=== PATIENT | male | born 1945 | race Caucasian/White ===

== ENCOUNTER 2017-02-10 07:33 | Day surgery (SDC) | payer MEDICARE, OTHER ==
[~2017-02-10] VITALS: Ht 172.7 cm; Wt 79.4 kg
[~2017-02-10 07:33] MED LIST: ASP81TEC PO; ASPI-586 PO; CEPH500C PO; CLOP75TA28 PO; FISH1CAP15 PO; HYDR-3820 PO; HYDR-623 PO; LEVO750T24 PO; LISI10TA PO; LISI10TA2 PO; LOVA10TA PO; LOVA20TA2 PO; METO-270 PO; METO-351 PO; NITR0.4T SL; PRD10T PO; RT-COMBINH IH; SIMV5TAB6 PO; UBID100C44 PO
[2017-02-10] MEDS ORDERED: fentaNYL INJECTION 100 MCG/2 ML AMP IVP STA ×2 (07:50→08:46)
[2017-02-10] MEDS ORDERED: NS IV 1000 ML 1,000 ML IV STA (07:50)
--- NOTE | 2017-02-10 07:58 | ED Abdominal Pain ---
General Chief Complaint: Abdominal/GI Problems Stated Complaint: ABD PAIN Nursing Triage Note: AMBULATED TO ROOM 07 WITH COMPLAINTS OF ABD PAIN SINCE 0200 THAT NOW IS CENTERED IN HIS RIGHT LOWER ABD. Sepsis Screen: No Definite Risk Source of Information: Patient, Family Exam Limitations: No Limitations History of Present Illness Time Seen By Provider: 07:43 Initial Comments Here with report of lower abdominal pain that started as generalized lower or periumbilical and now has radiated and isolated more in the right lower quadrant. Started approximately 6 hours ago and has worsened. It is associated with mild nausea. Denies fevers. Worse with movement and on the car ride here. Denies blood in urine or stool. Timing/Duration: 4-6 Hours Severity/Quality: Moderate Location: RLQ Radiation: RLQ Activities at Onset: None Modifying Factors: Worsens With Movement Associated Symptoms: No Back Pain, No Chest Pain, No Fever/Chills, Nausea/ Vomiting, No Shortness of Air, No Weakness Allergies and Home Medications Allergies Coded Allergies: No Known Drug Allergies (Unverified , 12/22/11) Home Medications Aspirin 81 Mg Tablet.dr, 81 MG PO DAILY, (Reported) Clopidogrel Bisulfate 75 Mg Tablet, 75 MG PO DAILY, (Reported) Hydrocodone/Acetaminophen 1 Each Tablet, 1-2 TAB PO EVERY 4-6 HOURS PRN for PAIN , (Reported) Lisinopril 10 Mg Tablet, 10 MG PO DAILY, (Reported) Lovastatin 20 Mg Tablet, 20 MG PO HS, (Reported) Metoprolol Succinate 25 Mg Tab.er.24h, 25 MG PO DAILY, (Reported) Nitroglycerin 0.4 Mg Tab.subl, 0.4 MG SL UD PRN for CHEST PAIN, (Reported) Ubidecarenone 100 Mg Capsule, 100 MG PO DAILY, (Reported) Review of Systems Constitutional: see HPI EENTM: No Symptoms Reported Respiratory: No Symptoms Reported, Denies Shortness of Air, Denies Wheezing Cardiovascular: Denies Chest Pain, Denies Lightheadedness Gastrointestinal: Abdominal Pain, Nausea, Denies Rectal Bleeding, Denies Vomiting Genitourinary: Denies Hematuria, Denies Pain, Denies Urgency Musculoskeletal: no symptoms reported Skin: no symptoms reported All Other Systems Reviewed Negative Unless Noted: Yes Past Rdcyosl-Elihst-Qszbuc Hx Patient Social History Alcohol Use: Regular Use Recreational Drug Use: No Smoking Status: Former Smoker Type Used: Cigarettes Recent Foreign Travel: No Contact w/Someone Who Travel: No Recent Infectious Disease Expo: No Immunizations Up To Date Date of Pneumonia Vaccine: Jun 19, 2014 Date of Influenza Vaccine: Dec 24, 2011 Surgeries HX Surgeries: Yes (HERNIA) Surgeries: Abdominal, CABG Respiratory Hx Respiratory Disorders: No Cardiovascular Hx Cardiac Disorders: Yes Cardiac Disorders: High Cholesterol, Hypertension Neurological Hx Neurological Disorders: No Genitourinary Hx Genitourinary Disorders: No Gastrointestinal Hx Gastrointestinal Disorders: No Musculoskeletal Hx Musculoskeletal Disorders: No Musculoskeletal Disorders: Arthritis Endocrine Hx Endocrine Disorders: No HEENT HX ENT Disorders: No Psychosocial Hx Psychiatric Problems: No Blood Transfusions Hx Blood Disorders: No Reviewed Nursing Assessment Reviewed/Agree w Nursing PMH: Yes Family Medical History Significant Family History: Heart Disease Physical Exam Vital Signs VS - Last 72 Hours, by Label 02/10/17 07:41 Temp 97.8 Pulse 80 Resp 16 B/P (MAP) 217/103 Pulse Ox 96 Capillary Refill : Less Than 3 Seconds General Appearance: WD/WN, no apparent distress HEENT: PERRL/EOMI, pharynx normal Neck: full range of motion, supple Respiratory: lungs clear, normal breath sounds Cardiovascular: regular rate, rhythm, no murmur Peripheral Pulses: 2+ Dorsalis Pedis (R), 2+ Left Dors-Pedis (L), 2+ Radial Pulses (R), 2+ Radial Pulses (L) Gastrointestinal: soft, guarding, rebound, tenderness Extremities: non-tender, normal inspection Back: normal inspection, no CVA tenderness, no vertebral tenderness Neurologic/Psychiatric: alert, oriented x 3 Skin: normal color, warm/dry Progress/Results/Core Measures Results/Orders Lab Results Laboratory Tests Test 02/10/17 07:50 02/10/17 08:47 Range/Units White Blood Count 12.9 H 4.3-11.0 10^3/uL Red Blood Count 4.46 4.35-5.85 10^6/uL Hemoglobin 15.3 13.3-17.7 G/DL Hematocrit 45 40-54 % Mean Corpuscular Volume 101 H 80-99 FL Mean Corpuscular Hemoglobin 34 25-34 PG Mean Corpuscular Hemoglobin Concent 34 32-36 G/DL Red Cell Distribution Width 12.5 10.0-14.5 % Platelet Count 157 130-400 10^3/uL Mean Platelet Volume 9.0 7.4-10.4 FL Neutrophils (%) (Auto) 85 H 42-75 % Lymphocytes (%) (Auto) 9 L 12-44 % Monocytes (%) (Auto) 6 0-12 % Eosinophils (%) (Auto) 0 0-10 % Basophils (%) (Auto) 0 0-10 % Neutrophils # (Auto) 11.0 H 1.8-7.8 X 10^3 Lymphocytes # (Auto) 1.1 1.0-4.0 X 10^3 Monocytes # (Auto) 0.7 0.0-1.0 X 10^3 Eosinophils # (Auto) 0.0 0.0-0.3 10^3/uL Basophils # (Auto) 0.0 0.0-0.1 10^3/uL Sodium Level 137 135-145 MMOL/L Potassium Level 4.1 3.6-5.0 MMOL/L Chloride Level 104 98-107 MMOL/L Carbon Dioxide Level 22 21-32 MMOL/L Anion Gap 11 5-14 MMOL/L Blood Urea Nitrogen 15 7-18 MG/DL Creatinine 0.79 0.60-1.30 MG/DL Estimat Glomerular Filtration Rate > 60 BUN/Creatinine Ratio 19 Glucose Level 130 H 70-105 MG/DL Calcium Level 9.4 8.5-10.1 MG/DL Total Bilirubin 0.8 0.1-1.0 MG/DL Aspartate Amino Transf (AST/SGOT) 32 5-34 U/L Alanine Aminotransferase (ALT/SGPT) 26 0-55 U/L Alkaline Phosphatase 69 40-136 U/L Total Protein 7.2 6.4-8.2 G/DL Albumin 4.6 H 3.2-4.5 G/DL Urine Color YELLOW Urine Clarity CLEAR Urine pH 5 5-9 Urine Specific [place] 1.020 1.016-1.022 Urine Protein NEGATIVE NEGATIVE Urine Glucose (UA) NEGATIVE NEGATIVE Urine Ketones NEGATIVE NEGATIVE Urine Nitrite NEGATIVE NEGATIVE Urine Bilirubin NEGATIVE NEGATIVE Urine Urobilinogen NORMAL NORMAL MG/DL Urine Leukocyte Esterase NEGATIVE NEGATIVE Urine RBC (Auto) 2+ H NEGATIVE Urine RBC NONE /HPF Urine WBC NONE /HPF Urine Squamous Epithelial Cells NONE /HPF Urine Crystals NONE /LPF Urine Bacteria NEGATIVE /HPF Urine Casts NONE /LPF Urine Mucus NEGATIVE /LPF Urine Culture Indicated NO My Orders Orders - WARRNE CHAMPION MD Cbc With Automated Diff (02/10/17 07:50) Comprehensive Metabolic Panel (02/10/17 07:50) Ua Culture If Indicated (02/10/17 07:50) Fentanyl Injection (Sublimaze Injection (02/10/17 07:50) Ondansetron Injection (Zofran Injectio (02/10/17 08:00) Ns Iv 1000 Ml (Sodium Chloride 0.9%) (02/10/17 07:50) Saline Lock/Iv-Start (02/10/17 07:50) Ct Abd/Pelv W (Appendicitis) (02/10/17 08:39) Iohexol Injection (Omnipaque 350 Mg/Ml 1 (02/10/17 08:45) Sodium Chloride Flush (Catheter Flush Sy (02/10/17 08:45) Ns (Ivpb) (Sodium Chloride 0.9% Ivpb Bag (02/10/17 08:45) Fentanyl Injection (Sublimaze Injection (02/10/17 08:46) Hydromorphone Injection (Dilaudid Inject (02/10/17 09:44) Piperacillin Sodium/Tazobactam (Zosyn Vi (02/10/17 10:00) Medications Given in ED Current Medications Medications Dose Ordered Sig/Yolanda Route Start Time Stop Time Status Last Admin Dose Admin Iohexol 100 ml ONCE ONCE IV 02/10/17 08:45 02/10/17 08:46 DC 02/10/17 08:56 100 ML Ondansetron HCl 4 mg ONCE ONCE IVP 02/10/17 08:00 02/10/17 08:01 DC 02/10/17 07:59 4 MG Sodium Chloride 100 ml ONCE ONCE IV 02/10/17 08:45 02/10/17 08:46 DC 02/10/17 08:56 80 ML Vital Signs/I&O Vital Sign - Last 12Hours 02/10/17 07:41 Temp 97.8 Pulse 80 Resp 16 B/P (MAP) 217/103 Pulse Ox 96 Blood Pressure Mean: 141 Progress Note : Progress Note Seen and evaluated. IV, labs, UA, normal saline 1 L bolus, fentanyl 100 g IV and Zofran 4 mg IV ordered. Anticipate CT scan. This was ordered and done. 0945: Acute appendicitis noted. Case discussed with Dr. Canales. He will admit the patient and taken to the OR probably later today. Zosyn 4.5 g IV. Patient did receive a repeat dose of fentanyl earlier 75 g. Pain has returned. Dilaudid 1 mg IV ordered. Patient agrees to admission and surgical procedure. Admit, observation status. Diagnostic Imaging Diagonstic Imaging: CT Plain Films/CT/US/NM/MRI: abdomen, pelvis Comments VIA [facility] [place] [facility], [place] NAME: [facility]AKUR [facility] REC#: [id number] PT STATUS: REG ER : 1945 PHYSICIAN: WARREN CHAMPION MD ADMIT DATE: 02/10/17/ER Draft Date of Exam:02/10/17 CT ABD/PELV W (APPENDICITIS) PROCEDURE: CT abdomen and pelvis with contrast, rule out appendicitis. TECHNIQUE: Multiple contiguous axial images were obtained through the abdomen and pelvis after the administration of intravenous contrast. INDICATION: Right lower quadrant pain. 100 mL of Omnipaque 350 is administered intravenously. FINDINGS: Minimal atelectasis is seen in the lung bases. The appendix is dilated with fluid filling its lumen and multiple appendicoliths seen. Surrounding inflammatory changes are noted. There is no localized or free perforation evident. There is no abscess seen. There is small amount of fluid density noted in the right inguinal canal. This could relate to a cyst or small amount of fluid trapped in a small indirect right inguinal hernia. This does not appears to be in communication with the appendix. The liver, the gallbladder, the spleen, the adrenals, and the pancreas appear unremarkable. The kidneys have symmetric enhancement and contrast excretion. There is no hydronephrosis. The abdominal aorta is normal in caliber. No para-aortic significantly enlarged lymph nodes seen. No bowel obstruction. The prostate is heterogenous with mild enlargement at 5 cm in transverse dimension. The urinary bladder demonstrate mild wall thickening could be secondary to chronic obstructive changes. The osseous structures demonstrate degenerative changes in the lower lumbar spine. IMPRESSION: 1. Acute appendicitis. No evidence of perforation or abscess. 2. Small amount of fluid density at the proximal aspect of the right inguinal canal near the internal ring may relate to a cystic lesion within the inguinal canal or trapped small amount of fluid and a small indirect right inguinal hernia. Dictated on workstation # [id number] Dict: 02/10/1730 Trans: 02/10/17 0949 [facility] [id number] Interpreted by: RENY GAONA MD Electronically signed by: Reviewed: Reviewed by Me, Discussed w/Radiologist Departure Communication Time/Spoke to Admitting Phy: 09:45 Impression Impression: Primary Impression: Appendicitis Qualified Codes: K35.3 - Acute appendicitis with localized peritonitis Disposition: ADMITTED INPATIENT Condition: Stable Decision to Admit Reason: Admit from ER (General) Decision to Admit/Date: Feb 10, 2017 Time/Decision to Admit Time: 09:45 Departure-Patient Inst. Referrals: RENETTA WHITE MD (PCP/Family) Primary Care Physician WARREN CHAMPION MD Feb 10, 2017 07:58
[2017-02-10 08:00] LABS: BASOPHILS % (AUTO) 0 % (0-10); EOSINOPHILS % (AUTO) 0 % (0-10); LYMPHOCYTES # (AUTO) 1.1 X 10^3 (1.0-4.0); LYMPHOCYTES % (AUTO) 9 % (12-44); MEAN CORPUSCULAR HEMOGLOBIN 34 PG (25-34); MEAN CORPUSCULAR HGB CONC 34 G/DL (32-36); MEAN CORPUSCULAR VOLUME 101 FL (80-99); MONOCYTES # (AUTO) 0.7 X 10^3 (0.0-1.0); MONOCYTES % (AUTO) 6 % (0-12); NEUTROPHILS % (AUTO) 85 % (42-75); PLATELET COUNT 157 10^3/uL (130-400); RED BLOOD COUNT 4.46 10^6/uL (4.35-5.85); RED CELL DISTRIBUTION WIDTH 12.5 % (10.0-14.5); WHITE BLOOD COUNT 12.9 10^3/uL (4.3-11.0)
[2017-02-10] MEDS ORDERED: ONDANSETRON 4 MG/2 ML (SDV) Z0FRAN IVP ONE (08:00)
[2017-02-10 08:20] LABS: ALANINE AMINOTRANSFERASE 26 U/L (0-55); ALBUMIN 4.6 G/DL (3.2-4.5); ANION GAP 11 MMOL/L (5-14); ASPARTATE AMINO TRANSFERASE 32 U/L (5-34); BILIRUBIN,TOTAL 0.8 MG/DL (0.1-1.0); BLOOD UREA NITROGEN 15 MG/DL (7-18); BUN/CREATININE RATIO 19; CALCIUM 9.4 MG/DL (8.5-10.1); CARBON DIOXIDE 22 MMOL/L (21-32); CHLORIDE 104 MMOL/L (98-107); CREATININE SERUM 0.79 MG/DL (0.60-1.30); GFR ESTIMATED > 60; GLUCOSE 130 MG/DL (70-105); POTASSIUM 4.1 MMOL/L (3.6-5.0); SODIUM 137 MMOL/L (135-145); TOTAL PROTEIN 7.2 G/DL (6.4-8.2)
[2017-02-10] MEDS ORDERED: CATHETER FLUSH 10 ML SYR IV PRN (08:45)
[2017-02-10] MEDS ORDERED: NS 100 ML (IVPB) BAG IV ONE (08:45)
[2017-02-10] MEDS ORDERED: IOHEXOL 350 MG/ML 100 ML (OMNIPAQUE 350) VIAL IV ONE (08:45)
[2017-02-10 08:52] LABS: BILIRUBIN,URINE NEGATIVE (NEGATIVE); KETONES,URINE NEGATIVE (NEGATIVE); LEUKOCYTE ESTERASE ,URINE NEGATIVE (NEGATIVE); NITRITE,URINE NEGATIVE (NEGATIVE); PH,URINE 5 (5-9); PROTEIN,URINE NEGATIVE (NEGATIVE); UROBILINOGEN,URINE NORMAL (NORMAL)
[2017-02-10] MEDS ORDERED: HYDROmorphone (DILAUDID) 2 MG/ML VIAL IVP STA (09:44)
--- NOTE | 2017-02-10 09:50 | Diagnostic Imaging Report ---
PROCEDURE: CT abdomen and pelvis with contrast, rule out appendicitis. TECHNIQUE: Multiple contiguous axial images were obtained through the abdomen and pelvis after the administration of intravenous contrast. INDICATION: Right lower quadrant pain. 100 mL of Omnipaque 350 is administered intravenously. FINDINGS: Minimal atelectasis is seen in the lung bases. The appendix is dilated with fluid filling its lumen and multiple appendicoliths seen. Surrounding inflammatory changes are noted. There is no localized or free perforation evident. There is no abscess seen. There is small amount of fluid density noted in the right inguinal canal. This could relate to a cyst or small amount of fluid trapped in a small indirect right inguinal hernia. This does not appears to be in communication with the appendix. The liver, the gallbladder, the spleen, the adrenals, and the pancreas appear unremarkable. The kidneys have symmetric enhancement and contrast excretion. There is no hydronephrosis. The abdominal aorta is normal in caliber. No para-aortic significantly enlarged lymph nodes seen. No bowel obstruction. The prostate is heterogenous with mild enlargement at 5 cm in transverse dimension. The urinary bladder demonstrate mild wall thickening could be secondary to chronic obstructive changes. The osseous structures demonstrate degenerative changes in the lower lumbar spine. IMPRESSION: 1. Acute appendicitis. No evidence of perforation or abscess. 2. Small amount of fluid density at the proximal aspect of the right inguinal canal near the internal ring may relate to a cystic lesion within the inguinal canal or trapped small amount of fluid and a small indirect right inguinal hernia. Findings were discussed with Dr. Amador at time of dictation Dictated by: Dictated on workstation # [id number]
[2017-02-10] MEDS ORDERED: PIPERACILLIN/TAZO 4.5 GM VIAL (ZOSYN) IV ONE (10:00)
[2017-02-10 10:40] VITALS: BP 145/73
[2017-02-10] MEDS ORDERED: ONDANSETRON 4 MG/2 ML (SDV) Z0FRAN IV PRN (11:00)
[2017-02-10] MEDS ORDERED: NS IV 1000 ML 1,000 ML IV SCH (11:00)
[2017-02-10] MEDS ORDERED: HYDROmorphone (DILAUDID) 2 MG/ML VIAL IV PRN ×2 (11:00→13:00)
[2017-02-10] MEDS ORDERED: PIPERACILLIN/TAZOBACTAM 4.5 GM/NS 100 ML IV SCH ×4 (11:00→16:00)
[2017-02-10] MEDS ORDERED: DESO15CR28 TP (11:09)
[2017-02-10] MEDS ORDERED: ATOR40TA70 PO (11:09)
[2017-02-10] MEDS ORDERED: PANTOPRAZOLE 40 MG/10 ML (PROTONIX) VIAL IV SCH (11:51)
[2017-02-10] MEDS ORDERED: oxyCODONE/APAP 7.5-325 MG (PERCOCET 7.5) TABLET PO PRN (12:00)
[2017-02-10] MEDS ORDERED: LORazepam INJ 2 MG/ML (ATIVAN) VIAL IVP PRN (12:00)
[2017-02-10] MEDS ORDERED: BUPIVACAINE 0.5% 30 ML (SENSORCAINE) VIAL ONE (12:05)
[2017-02-10] MEDS ORDERED: ONDANSETRON 4 MG/2 ML (SDV) Z0FRAN ONE (12:14)
[2017-02-10] MEDS ORDERED: ROCURONIUM 50 MG/5 ML (ZEMURON) VIAL IV ONE (12:14)
[2017-02-10] MEDS ORDERED: LACTATED RINGERS 1,000 ML IV PRN (12:14)
[2017-02-10] MEDS ORDERED: LACTATED RINGERS 1,000 ML IV ONE ×2 (12:14→13:37)
[2017-02-10] MEDS ORDERED: DEXAMETHASONE PF 10 MG/ML (DECADRON) VIAL ONE (12:14)
[2017-02-10] MEDS ORDERED: MIDAZOLAM 2 MG/2 ML (VERSED) VIAL ONE (12:14)
[2017-02-10] MEDS ORDERED: proPOfol 200 MG/20 ML (DIPRIVAN) VIAL IV ONE (12:14)
[2017-02-10] MEDS ORDERED: LIDOCAINE PF 2% 10 ML (XYLOCAINE) AMP ONE (12:14)
[2017-02-10] MEDS ORDERED: fentaNYL INJECTION 100 MCG/2 ML AMP ONE ×2 (12:15→13:19)
--- NOTE | 2017-02-10 12:50 | Progress Note-Pre Operative ---
Pre-Operative Progress Note H&P Reviewed The H&P was reviewed, patient examined and no changes noted. Date H&P Reviewed: Feb 10, 2017 Time H&P Reviewed: 11:00 Pre-Operative Diagnosis: acute appendicitis CHAKA RUTH MD Feb 10, 2017 12:50 pm
[2017-02-10] MEDS ORDERED: ceFAZolin 1,000 MG (ANCEF) VIAL ONE (13:04)
[2017-02-10] MEDS ORDERED: meTOprolol 5 MG/5 ML (LOPRESSOR) VIAL ONE (13:04)
--- NOTE | 2017-02-10 13:18 | HISTORY AND PHYSICAL ---
DATE OF SERVICE: 02/10/2017 PRIMARY CARE PHYSICIAN: Ramila Esposito MD The patient is a 71-year-old male who reports approximately 2 a.m. this morning he had developed pain in the right lower abdominal quadrant. He reports that this progressed over time and this also is associated with some mild nausea, however, no vomiting. He does not report any fever nor chills. Upon presentation to the emergency department, he had pain in the right lower abdominal quadrant at McBurney's point. A CT scan was also performed which did show inflammation of the appendix consistent with acute appendicitis. Upon examination, he does have pain with voluntary guarding. No rebound. PAST MEDICAL HISTORY: 1. Hypertension. 2. Hypercholesterolemia. 3. Coronary artery disease. 4. Degenerative joint disease. PAST SURGICAL HISTORY: 1. Bilateral open inguinal hernia repair. 2. Coronary artery bypass grafting times 3 vessels 08/2016. ALLERGIES: NO KNOWN DRUG ALLERGIES. MEDICATIONS: 1. Aspirin 81 mg daily. 2. Plavix 75 mg daily. 3. Lisinopril 10 mg daily. 4. Lovastatin 20 mg daily. 5. Metoprolol 25 mg daily. 6. Nitroglycerin p.r.n. 7. Ubidicarenone 100 mg daily. 8. Hydrocodone p.r.n. SOCIAL HISTORY: Negative smoke. Positive alcohol. VITAL SIGNS: Temperature 97.8, blood pressure 140/100, pulse 70, respirations 16, pulse oximetry 98% on room air. REVIEW OF SYSTEMS: Well nourished male currently guarded secondary to the abdominal pain. He is not experiencing shortness of breath or difficulty breathing. No chest pain, palpitations, diaphoresis. Intermittent episodes of nausea, no vomiting. No diarrhea, constipation, no red blood per rectum, no dark tarry stools. No fevers or chills. No recent inadvertent weight loss. PHYSICAL EXAMINATION: CHEST: Clear. HEART: Regular. EXTREMITIES: No lower extremity edema. Negative Homans' sign. HEENT: No scleral icterus. No cervical lymphadenopathy. ABDOMEN: Soft and nondistended. There is pain in the right lower abdominal quadrant at McBurney's point with voluntary guarding. No rebound. LABS: WBC 12.9, hemoglobin 15.3, hematocrit 45, platelets 157,000. Total bilirubin 0.8, AST 32, ALT 26, alkaline phosphatase 69. ASSESSMENT AND PLAN: A 71-year-old male with acute appendicitis. He has been n.p.o. We will proceed with diagnostic laparoscopy as well as laparoscopic appendectomy. Job ID: [id number] DocumentID: [id number] Dictated Date: 02/10/2017 11:53:25 Dental Claims Processor Date: 02/10/2017 13:17:42 Dictated By: CHAKA RUTH MD
[2017-02-10] MEDS ORDERED: ceFAZolin INJECTION 1,000 MG in NS (IVPB) 50 ML IV ONE (13:30)
[2017-02-10] MEDS ORDERED: SEVOFLURANE (ULTANE) 15 ML INHAL SOLN ONE (13:37)
[2017-02-10] MEDS ORDERED: GLYCOPYRROLATE 0.2 MG/ML (ROBINUL) 2 ML VIAL ONE (13:38)
[2017-02-10] MEDS ORDERED: NEOSTIGMINE (BLOXIVERZ ) 1 MG/1ML 10 ML VIAL ONE (13:38)
--- NOTE | 2017-02-10 13:50 | Progress Note-Post Operative ---
Post-Operative Progess Note Surgeon (s)/Caterers Helper (s) Surgeon CHAKA RUTH MD Caterers Helper: calin ji LOAN PROCESSING SUPERVISOR Pre-Operative Diagnosis acute appendicitis Post-Operative Diagnosis same Post-Op Procedure Note Date of Procedure: Feb 10, 2017 Name of Procedure Performed: laparoscopic appendectomy Description of the Procedure: laparoscopic appendectomy Findings of the Procedure . Anesthesia Type GET Estimated blood loss (mL): minimal Specimen(s) collected/removed appendix CHAKA RUTH MD Feb 10, 2017 1:49 pm
[2017-02-10] MEDS ORDERED: OXYC-201 PO (13:54)
[2017-02-10] MEDS ORDERED: AMOX-358 PO (13:54)
--- NOTE | 2017-02-10 13:56 | Discharge Inst-Surgical ---
D/C Lap Instructions-FARAZ New, Converted, or Re-Newed RX: RX on Chart Follow Up Appt in 2 weeks Activity as tolerated No driving for 24 hours No driving while on pain medications Incentive Spirometry use every 2 hours while awake Regular Diet Symptoms to Report: Fever over 101 degree F, Nausea/Vomiting Infection Signs and Symptoms to report: Increased redness, Foul odor of wound, Increased drainage Bathing instructions: May shower Operative Area Clean/Dry; Keep incision clean/dry If any problems/questions: Contact your physician or go to Emergency Room CHAKA RUTH MD Feb 10, 2017 1:56 pm
[2017-02-10] MEDS ORDERED: ONDANSETRON 4 MG/2 ML (SDV) Z0FRAN IVP PRN (14:15)
[2017-02-10] MEDS ORDERED: fentaNYL INJECTION 100 MCG/2 ML AMP IVP PRN (14:15)
[2017-02-10] MEDS ORDERED: morphine INJ 10 MG/ML 1ML (SYR OR VIAL) IVP PRN (14:15)
[2017-02-10 16:45] VITALS: BP 143/80
[2017-02-10 18:25] VITALS: BP 145/78
--- NOTE | 2017-02-11 06:18 | OPERATIVE REPORT ---
DATE OF SERVICE: 02/10/2017 PRIMARY CARE PHYSICIAN: Ramila Esposito MD PREOPERATIVE DIAGNOSIS: Acute appendicitis. POSTOPERATIVE DIAGNOSIS: Acute appendicitis. PROCEDURE: Laparoscopic appendectomy. SURGEON: Chaka Ruth MD FUNDRAISING DIRECTOR: Aakash Shepard APRN ANESTHESIA: General endotracheal. ESTIMATED BLOOD LOSS: 100 mL. FINDINGS: Acutely inflamed appendix with some necrotic changes, however there is no free perforation identified and walled off by small bowel and omentum. DISPOSITION: The patient tolerated the procedure well. The patient is a 71-year-old male who reports that at approximately 2 a.m. this morning, he had developed pain in the right lower abdominal quadrant. The pain persisted and progressed over time and was associated with mild nausea, however, no vomiting. He did not report any fever nor chills at home. His findings on presentation in the Emergency Department the pain was worse in the right lower abdominal quadrant and at McBurney's point. A CT scan was performed which showed inflammation of the appendix consistent with an acute appendicitis as well as multiple appendicoliths. Upon examination, he did have pain at McBurney's point with voluntary guarding, no rebound, consistent with an acute appendicitis. The patient was brought to the operating room, laid supine on the table. After adequate IV pain and sedating medications and general endotracheal intubation, the abdomen was prepped and draped in the standard surgical fashion. Marcaine with epinephrine 0.5% was then used to anesthetize the overlying skin in the left upper abdominal quadrant. A small transverse skin incision made using a 15 blade. An 0 silk suture was applied to the medial aspect of the incision for retraction, a Veress needle inserted with an opening pressure of 0 mmHg. The abdomen was then insufflated to 15 mmHg pressure. The Veress needle removed and a 5 mm [place] trocar placed followed by a 5 mm port 5 degree angle laparoscope visualizing the peritoneal cavity. A 4 quadrant abdominal exam was performed. The appendix was visualized and there were significant inflammatory changes as well as early necrotic changes as well. There was no free perforation. There was adherent small bowel as well as omentum and mesentery. There was no free fluid or bijal purulence. Under direct visualization, we then proceeded to place a supraumbilical 10 mm port after the skin and peritoneum were anesthetized using 0.5% Marcaine with epinephrine and a transverse skin incision made using a 15 blade. In a similar manner, a suprapubic 5 mm port was placed. The patient was then placed in Trendelenburg position as well as planed right side up left side down. The adhered small bowel and omentum and mesentery were then bluntly dissected. The appendix was then retracted towards the anterior abdominal wall. A window was then created between the mesoappendix and the base of the appendix using a [place] dissector. The appendix was then stapled and transected at its cecal base using a ALICIA 45 mm stapler with a 2.5 mm thickness load. The mesoappendix was then transected with the same stapler with a 2.0 mm thickness, reload x2 with visualization of good hemostasis. The area was then copiously irrigated out as was the pelvis and suctioned out. Good hemostasis was also observed. The 10 mm port fascia and peritoneum were then closed under direct visualization using the Gianni-Yeimy device and an 0-Vicryl suture. The abdomen was desufflated and the remaining ports removed. All skin incisions closed using 4-0 Monocryl running subcuticular sutures. The wounds were then cleaned and covered with Dermabond. The patient tolerated the procedure well. We will admit him back to the floor and continue with IV antibiotics. Once he is tolerating clears and has good pain control with oral medication and is ambulating well, we will discharge him home. Job ID: [id number] DocumentID: [id number] Dictated Date: 02/10/2017 14:03:18 Senior Maintenance Machinist Date: 02/11/2017 06:17:30 Dictated By: CHAKA RUTH MD [facility]
--- NOTE | 2017-02-11 14:07 | Anesthesia-General Post-Op ---
General Patient Condition Mental Status/LOC: Same as Preop Cardiovascular: Satisfactory Nausea/Vomiting: Absent Respiratory: Satisfactory Pain: Controlled Complications: Absent Post Op Complications Complications None Follow Up Care/Instructions Patient Instructions None needed. Anesthesia/Patient Condition Patient Condition Patient is doing well, no complaints, stable vital signs, no apparent adverse anesthesia problems. No complications reported per nursing. [place] [facility] [place] Yes JAYSON ALBERT CRNA Feb 11, 2017 14:07
== END 2017-02-10 18:35 | disposition home or self-care (01) ==
LOC: EDUNIT# 07:33 → ER 07:35 → 4TH 09:45 → SDC 09:45 → UNDOADMOB 09:45 → SDC 18:35 → UNDODISOB 18:35
PROVIDERS: ATTEND Surgery Pediatric Surgery
DX: K35.80 Unspecified acute appendicitis (principal); I10 Essential (primary) hypertension; E78.00 Pure hypercholesterolemia, unspecified; I25.10 Atherosclerotic heart disease of native coronary artery without angina pectoris; Z79.899 Other long term (current) drug therapy
CPT/HCPCS: 36415; 74177; 80053; 81000; 85025; 87081; 88304; 96361; 96374; 96375; 96376

== ENCOUNTER 2018-01-16 02:23 | Emergency (ER) | payer MEDICARE ==
[~2018-01-16] VITALS: Ht 172.7 cm; Wt 80.3 kg
[~2018-01-16 02:23] MED LIST changes: +AMOX-358 PO; +ATOR40TA70 PO; +DESO15CR28 TP; -METO-270 PO; +METO-387 PO; +OXYC-201 PO
--- NOTE | 2018-01-16 02:54 | ED Respiratory ---
General Stated Complaint: POSS PNEUMONIA Source: patient Exam Limitations: no limitations History of Present Illness Date Seen by Provider: Jan 16, 2018 Time Seen by Provider: 02:40 Initial Comments Here with report of cough and feeling short of breath and concerned that he might have pneumonia. Had chills last night but no documented fever. Denies nausea or vomiting. Quit smoking a year and a half ago and his heart surgery. Reports taking his meds as directed. Timing/Duration: getting worse, other (several days) Severity: moderate Prior Episodes/Possible Cause: occasional episodes Modifying Factors: Worse With Activity Associated Symptoms: No chest pain/soreness, cough, fever/chills, No nasal congestion, No nasal drainage, shortness of breath, No sore throat, No wheezing Allergies and Home Medications Allergies Coded Allergies: No Known Drug Allergies (Unverified , 02/10/17) Home Medications Aspirin 81 Mg Tablet.dr, 81 MG PO DAILY, (Reported) Atorvastatin Calcium 40 Mg Tablet, 40 MG PO HS, (Reported) Metoprolol Succinate 25 Mg Tab.er.24h, 25 MG PO DAILY, (Reported) Oxycodone HCl/Acetaminophen 1 Each Tablet, 1-2 EACH PO Q4H Prescribed by: CHAKA RUTH on 02/10/17 7334 Patient Home Medication List Home Medication List Reviewed: Yes Constitutional: see HPI, chills, No fever EENTM: no symptoms reported, No nose congestion, No nose pain Respiratory: cough, short of breath, No wheezing Cardiovascular: no symptoms reported Gastrointestinal: No abdominal pain, No nausea, No vomiting Genitourinary: no symptoms reported All Other Systems Reviewed Negative Unless Noted: Yes Past Xnkqqax-Daswbk-Fhzfjt Hx Patient Social History Alcohol Use: Occasionally Uses Alcohol Beverage of Choice: Vodka Recreational Drug Use: No Type Used: Cigarettes Recent Foreign Travel: No Contact w/Someone Who Travel: No Recent Hopitalizations: No Immunizations Up To Date Date of Pneumonia Vaccine: Jun 19, 2014 Date of Influenza Vaccine: Dec 24, 2011 Seasonal Allergies Seasonal Allergies: No Surgeries History of Surgeries: Yes Surgeries: Abdominal, CABG, Orthopedic Respiratory History of Respiratory Disorde: No Cardiovascular History of Cardiac Disorders: Yes Cardiac Disorders: High Cholesterol, Hypertension Neurological History of Neurological Disord: No Genitourinary History of Genitourinary Disor: No Gastrointestinal History of Gastrointestinal Di: Yes Gastrointestinal Disorders: Abdominal Hernia Musculoskeletal History of Musculoskeletal Dis: No Musculoskeletal Disorders: Arthritis Endocrine History of Endocrine Disorders: No HEENT History of HEENT Disorders: No Cancer History of Cancer: No Psychosocial History of Psychiatric Problem: No Integumentary History of Skin or Integumenta: No Blood Transfusions History of Blood Disorders: No Reviewed Nursing Assessment Reviewed/Agree w Nursing PMH: Yes Family Medical History Significant Family History: Heart Disease Family Medial History: Physical Exam Vital Signs Vital Signs - First Documented 01/16/18 01/16/18 02:38 02:56 Temp 99.2 Pulse 97 Resp 20 B/P (MAP) 166/98 (120) Pulse Ox 94 O2 Delivery Room Air Capillary Refill : General Appearance: WD/WN, no apparent distress HEENT: PERRL/EOMI, pharynx normal Neck: full range of motion, supple Respiratory: lungs clear, normal breath sounds Cardiovascular: regular rate, rhythm, no murmur Gastrointestinal: non tender, soft Extremities: non-tender, normal inspection Neurologic/Psychiatric: alert, oriented x 3 Skin: normal color, warm/dry Progress/Results/Core Measures Suspected Sepsis SIRS Temperature: Pulse: Respiratory Rate: Blood Pressure / Mean: Results/Orders My Orders Orders - WARREN CHAMPION MD Chest Pa/Lat (2 View) (01/16/18 02:48) Albuterol/Ipra Inhalation Soln (Duoneb I (01/16/18 03:00) Svn Sm Volume Nebulizer Rt-Rfs (01/16/18 02:48) Medications Given in ED Current Medications Medications Dose Ordered Sig/Yolanda Route Start Time Stop Time Status Last Admin Dose Admin Albuterol/ Ipratropium 3 ml ONCE ONCE INH 01/16/18 03:00 01/16/18 03:01 DC 01/16/18 02:54 3 ML Vital Signs/I&O Vital Sign - Last 12Hours 01/16/18 01/16/18 02:38 02:56 Temp 99.2 Pulse 97 Resp 20 B/P (MAP) 166/98 (120) Pulse Ox 94 O2 Delivery Room Air Room Air Capillary Refill : Progress Note : Progress Note Seen and evaluated. Chest x-ray and urine ordered.duoneb ordered. Monitor patient. 0325: States improved after breathing treatment. Chest x-ray shows questionable infiltrate. We will treat with antibiotics but also had prednisone due to his long history of smoking. Discharged home with return precautions. Patient verbalized understanding instructions and agreement with plan. Diagnostic Imaging Diagonstic Imaging: Xray Plain Films/CT/US/NM/MRI: chest Comments Questionable infiltrate/thickening bilateral bases. Departure Impression Impression: Primary Impression: Left lower lobe pneumonia Qualified Codes: J18.1 - Lobar pneumonia, unspecified organism Disposition: HOME, SELF-CARE Condition: Stable Departure-Patient Inst. Decision time for Depature: 03:27 Referrals: RENETTA WHITE MD (PCP/Family) Primary Care Physician Patient Instructions: Pneumonia, Adult (DC) Add. Discharge Instructions: Take medications as directed. You should take the prednisone in the morning. Start the antibiotic, Cefdinir, tonight. You may use Afrin nasal spray or the generic, 12 hour relief, 2 sprays to each nostril twice daily for 3 days only and then stop. Do not use more than 3 days. Follow-up with your Dr. in a few days for recheck. Return for worse pain, fever, vomiting, weakness, breathing problems or other concerns as needed. Scripts Prednisone (Prednisone) 20 Mg Tab 40 MG PO DAILY, #8 TAB 0 Refills Prov: WARREN CHAMPION MD 01/16/18 Cefdinir (Cefdinir) 300 Mg Capsule 300 MG PO BID, #14 CAP 0 Refills Prov: WARREN CHAMPION MD 01/16/18 WARREN CHAMPION MD Jan 16, 2018 02:54
[2018-01-16] MEDS ORDERED: RT-ALBUTEROL/IPRATROPIUM 3 ML (DUONEB) VIAL INH ONE (03:00)
[2018-01-16] MEDS ORDERED: PRD20T PO (03:29)
[2018-01-16] MEDS ORDERED: CEFD300C3 PO (03:29)
[2018-01-16] MEDS ORDERED: CEFDINIR 300 MG (OMNICEF) CAP PO ONE (03:30)
[2018-01-16] MEDS ORDERED: RX-ALBUTEROL INHALER (PROAIR) 8 GM IH PRN (03:30)
[2018-01-16] MEDS ORDERED: predniSONE 20 MG TAB PO ONE (03:30)
[2018-01-16 03:49] VITALS: BP 166/98
--- NOTE | 2018-01-16 07:24 | Diagnostic Imaging Report ---
Clinical indication: Patient with cough and congestion. Exam: Chest x-ray, PA and lateral views. Comparison: Portable chest x-ray dated 06/16/2016. Findings: There is interval slight increased opacities in both lung bases which may represent atelectasis versus infiltrate. Otherwise, the remainder of the lungs are clear. There is no pleural effusion or pneumothorax. Pulmonary vasculature and cardiac silhouette are within normal limits. There is interval postop change to the chest with sternotomy wires and mediastinal clips which would be seen with CABG. Impression: 1: Interval mild bibasilar atelectasis versus infiltrates. 2: Interval postop changes to the chest consistent with CABG. Dictated by: Dictated on workstation # [id number]
--- OUTSIDE RECORDS SUMMARY | 2018-01-16 08:35 | XMS REPORT | CCD ---
Author Author Lida Sanchez Organization [facility] Address [address] [place] [address] Phone Care Team Providers Care Batch Dumper Name Role Phone PP Unavailable CCM Unavailable Summary Purpose Interface Exchange Insurance Providers Payer name Policy type / Coverage type Covered democrat ID Effective Begin Date Effective End Date WPS Medicare Part B [id number] 2015 Unknown [facility] [id number] Unknown Family history Father Diagnosis Age At Onset Heart Attack Unknown Mother Diagnosis Age At Onset Stroke Unknown Social History Social History Element Codes Description Effective Dates Tobacco history SNOMED CT: 0500957 Former smoker 09/29/2016 Marital status Unknown [employer] 06/02/2016 Number of children Unknown 0 06/02/2016 Number of cigarettes/day Unknown 10 ( Half a pack) 06/02/2016 Frequency of drinks SNOMED CT: 954705936 1-4 drinks per week 03/07/2015 Living arrangements Unknown House 03/06/2015 Employment Unknown Retired 03/06/2015 Number of years using tobacco Unknown 40 - 50 03/06/2015 Allergies, Adverse Reactions, Alerts Allergies, Adverse Reactions, Alerts data not found Past Medical History Illness Codes Condition Status Onset Date Resolved Date Effusion, right wrist ICD-9: 719.03 ICD-10: M25.431 Active 12/02/2017 Unknown Essential (primary) hypertension ICD-9: 401.9 ICD-10: I10 Active 06/03/2015 Unknown Mixed hyperlipidemia ICD-9: 272.4 ICD-10: E78.2 Active 06/03/2015 Unknown Other chronic pain ICD -9: 338.29 ICD-10: G89.29 Active 06/03/2015 Unknown Pain in right wrist ICD-9: 719.43 ICD-10: M25.531 Active 09/29/2016 Unknown Pain in left thigh ICD -9: 729.5 ICD-10: M79.652 Active 09/23/2017 Unknown Pain in right shoulder ICD-9: 719.41 ICD-10: M25.511 Active 03/30/2017 Unknown Pain in right arm ICD- 9: 729.5 ICD-10: M79.601 Active 03/01/2017 Unknown Other insomnia ICD-9: 327.09 ICD-10: G47.09 Active 12/23/2016 Unknown Pain in left wrist ICD -9: 719.43 ICD-10: M25.532 Active 09/29/2016 Unknown Pain in right knee ICD -9: 719.46 ICD-10: M25.561 Active 03/05/2015 Unknown Encounter for immunization ICD-9: V03.9 ICD-10: Z23 Active 12/02/2015 Unknown Tobacco use ICD-9: 305.1 ICD-10: Z72.0 Active 06/03/2015 Unknown Encounter for immunization ICD-9: V04.81 ICD-10: Z23 Active 08/29/2015 Unknown Chronic pain ICD-9: 338.29 Active 06/03/2015 Unknown ESSENTIAL HYPERTENSION ICD-9: 401.9 Active 06/03/2015 Unknown HYPERLIPIDEMIA ICD-9: 272.4 Active 06/03/2015 Unknown TOBACCO USE DISORDER ICD-9: 305.1 Active 06/03/2015 Unknown Hyperlipidemia Unknown Active 03/07/2015 Unknown Hypertension Unknown Active 03/07/2015 Unknown Osteoarthritis Unknown Active 03/07/2015 Unknown Right knee pain ICD-9 : 719.46 Active 03/05/2015 Unknown Problems Condition Codes Effective Dates Condition Status Effusion, right wrist ICD-9: 719.03 ICD-10: M25.431 12/02/2017 Active Essential (primary) hypertension ICD-9: 401.9 ICD-10: I10 06/03/2015 Active Mixed hyperlipidemia ICD-9: 272.4 ICD-10: E78.2 06/03/2015 Active Other chronic pain ICD -9: 338.29 ICD-10: G89.29 06/03/2015 Active Pain in right wrist ICD-9: 719.43 ICD-10: M25.531 09/29/2016 Active Pain in left thigh ICD -9: 729.5 ICD-10: M79.652 09/23/2017 Active Pain in right shoulder ICD-9: 719.41 ICD-10: M25.511 03/30/2017 Active Pain in right arm ICD- 9: 729.5 ICD-10: M79.601 03/01/2017 Active Other insomnia ICD-9: 327.09 ICD-10: G47.09 12/23/2016 Active Pain in left wrist ICD -9: 719.43 ICD-10: M25.532 09/29/2016 Active Pain in right knee ICD -9: 719.46 ICD-10: M25.561 03/05/2015 Active Encounter for immunization ICD-9: V03.9 ICD-10: Z23 12/02/2015 Active Tobacco use ICD-9: 305.1 ICD-10: Z72.0 06/03/2015 Active Encounter for immunization ICD-9: V04.81 ICD-10: Z23 08/29/2015 Active Chronic pain ICD-9: 338.29 06/03/2015 Active ESSENTIAL HYPERTENSION ICD-9: 401.9 06/03/2015 Active HYPERLIPIDEMIA ICD-9: 272.4 06/03/2015 Active TOBACCO USE DISORDER ICD-9: 305.1 06/03/2015 Active Hyperlipidemia Unknown 03/07/2015 Active Hypertension Unknown 03/07/2015 Active Osteoarthritis Unknown 03/07/2015 Active Right knee pain ICD-9 : 719.46 03/05/2015 Active Medications Medication Codes Instructions Start Date Stop Date Status Fill Instructions desoximetasone 0.25 % topical cream RxNorm: 456786 1 Application TOP BID 11/22/2017 No Stop Date Active Keflex 500 mg capsule RxNorm: 327622 1 Capsule(s) PO TID 201712/01/2017 Inactive Keflex 500 mg capsule RxNorm: 633347 1 Capsule(s) PO TID 201711/21/2017 Inactive oxycodone 15 mg tablet RxNorm: 5255511 1/2 - 1 Tablet(s) PO TID right shoulder pain 11/08/2017 12/07/2017 Active Kenalog 40 mg/mL suspension for injection RxNorm: 0208378 1 Milliliter(s) Inj daily 09/23/2017 09/23/2017 Inactive metoprolol succinate ER 25 mg tablet,extended release 24 hr RxNorm: 194174 1.5 Tablet(s) PO daily 09/20/2017 09/14/2018 Active oxycodone 15 mg tablet RxNorm: 4802236 1/2 - 1 Tablet(s) PO TID right shoulder pain 09/07/2017 10/06/2017 Inactive oxycodone 15 mg tablet RxNorm: 6558397 1/2 - 1 Tablet(s) PO TID right shoulder pain 08/16/2017 09/06/2017 Inactive oxycodone 15 mg tablet RxNorm: 5954204 1/2 - 1 Tablet(s) PO TID right shoulder pain 07/22/2017 08/15/2017 Inactive diclofenac 1 % topical gel RxNorm: 814751 2 Gram(s) TOP QID to right shoulder 07/22/2017 09/19/2017 Inactive metoprolol succinate ER 25 mg tablet,extended release 24 hr RxNorm: 933871 1.5 Tablet(s) PO daily 07/22/2017 09/19/2017 Inactive hydrocodone 10 mg-acetaminophen 325 mg tablet RxNorm: 643945 1-2 Tablet(s) PO Q8 as needed 07/01/2017 08/15/2017 Inactive hydrocodone 10 mg-acetaminophen 325 mg tablet RxNorm: 736229 1-2 Tablet(s) PO Q8 as needed 06/03/2017 06/30/2017 Inactive Xanax 0.25 mg tablet RxNorm: 984184 1/2 - 1 Tablet(s) PO QHS as needed insomnia 05/06/2017 07/04/2017 Inactive hydrocodone 10 mg-acetaminophen 325 mg tablet RxNorm: 140211 1-2 Tablet(s) PO Q8 as needed 05/06/2017 06/02/2017 Inactive hydrocodone 10 mg-acetaminophen 325 mg tablet RxNorm: 178738 1-2 Tablet(s) PO Q8 as needed 03/23/2017 04/21/2017 Inactive acyclovir 800 mg tablet RxNorm: 679922 1 Tablet(s) PO QID 03/0803/07/2017 Inactive acyclovir 800 mg tablet RxNorm: 335445 1 Tablet(s) PO QID 03/0803/14/2017 Inactive gabapentin 300 mg capsule RxNorm: 862924 1 Capsule(s) PO BID 03/25/2017 Inactive gabapentin 300 mg capsule RxNorm: 107178 1 Capsule(s) PO BID 03/04/2017 Inactive gabapentin 100 mg capsule RxNorm: 937867 1 Capsule(s) PO QHS 03/25/2017 Inactive Xanax 0.25 mg tablet RxNorm: 313346 1/2 - 1 Tablet(s) PO QHS as needed insomnia 02/22/2017 03/23/2017 Inactive hydrocodone 10 mg-acetaminophen 325 mg tablet RxNorm: 413821 1-2 Tablet(s) PO Q8 as needed 02/22/2017 03/22/2017 Inactive hydrocodone 10 mg-acetaminophen 325 mg tablet RxNorm: 158852 1-2 Tablet(s) PO Q8 as needed 01/25/2017 02/21/2017 Inactive desoximetasone 0.25 % topical cream RxNorm: 936859 1 Application TOP BID 01/22/2017 11/21/2017 Inactive desoximetasone 0.25 % topical cream RxNorm: 938124 1 Application TOP BID 12/23/2016 01/21/2017 Inactive hydrocodone 10 mg-acetaminophen 325 mg tablet RxNorm: 657584 1-2 Tablet(s) PO Q8 as needed 12/23/2016 01/21/2017 Inactive Xanax 0.25 mg tablet RxNorm: 126067 1/2 - 1 Tablet(s) PO QHS as needed insomnia 12/23/2016 01/21/2017 Inactive hydrocodone 10 mg-acetaminophen 325 mg tablet RxNorm: 456857 1-2 Tablet(s) PO Q8 as needed 11/30/2016 12/22/2016 Inactive hydrocodone 10 mg-acetaminophen 325 mg tablet RxNorm: 578252 1-2 Tablet(s) PO Q8 as needed 10/29/2016 11/27/2016 Inactive hydrocodone 10 mg-acetaminophen 325 mg tablet RxNorm: 510302 1-2 Tablet(s) PO Q8 as needed 09/07/2016 10/06/2016 Inactive hydrocodone 10 mg-acetaminophen 325 mg tablet RxNorm: 156449 1-2 Tablet(s) PO Q8 as needed 08/10/2016 09/06/2016 Inactive hydrocodone 10 mg-acetaminophen 325 mg tablet RxNorm: 497061 1-2 Tablet(s) PO Q8 as needed 07/14/2016 08/09/2016 Inactive morphine ER 15 mg tablet,extended release RxNorm: 764864 1 Tablet(s) PO BID 06/02/2016 07/01/2016 Inactive hydrocodone 10 mg-acetaminophen 325 mg tablet RxNorm: 740134 1-2 Tablet(s) PO Q8 as needed 05/18/2016 06/16/2016 Inactive hydrocodone 10 mg-acetaminophen 325 mg tablet RxNorm: 098883 1-2 Tablet(s) PO Q8 as needed 04/21/2016 05/17/2016 Inactive Chantix 1 mg tablet RxNorm: 367900 1 Tablet(s) PO BID 201506/01/2016 Inactive hydrocodone 10 mg-acetaminophen 325 mg tablet RxNorm: 237081 1-2 Tablet(s) PO Q8 as needed 03/23/2016 04/20/2016 Inactive hydrocodone 10 mg-acetaminophen 325 mg tablet RxNorm: 342214 1-2 Tablet(s) PO Q8 as needed 02/25/2016 03/22/2016 Inactive hydrocodone 10 mg-acetaminophen 325 mg tablet RxNorm: 658691 1-2 Tablet(s) PO Q8 as needed 01/27/2016 02/24/2016 Inactive Chantix 1 mg tablet RxNorm: 692978 1 Tablet(s) PO BID 201504/20/2016 Inactive hydrocodone 10 mg-acetaminophen 325 mg tablet RxNorm: 876141 1-2 Tablet(s) PO Q6 as needed 12/19/2015 01/17/2016 Inactive lisinopril 10 mg tablet RxNorm: 632514 1 Tablet(s) PO daily 10/201509/28/2016 Inactive lovastatin 20 mg tablet RxNorm: 415402 1 Tablet(s) PO daily 10/201509/28/2016 Inactive Chantix Starting Month Box 0.5 mg (11)-1 mg (42) tablets in dose pack RxNorm: 126744 1 Tablet(s) PO UD as directed in the starter pack 201501/01/2016 Inactive hydrocodone 10 mg-acetaminophen 325 mg tablet RxNorm: 745779 1-2 Tablet(s) PO Q6 as needed 11/21/2015 12/18/2015 Inactive hydrocodone 10 mg-acetaminophen 325 mg tablet RxNorm: 708721 1-2 Tablet(s) PO Q6 as needed 10/24/2015 11/20/2015 Inactive hydrocodone 10 mg-acetaminophen 325 mg tablet RxNorm: 017958 1-2 Tablet(s) PO Q6 as needed 08/23/2015 09/21/2015 Inactive hydrocodone 10 mg-acetaminophen 325 mg tablet RxNorm: 053706 1-2 Tablet(s) PO Q6 as needed 07/26/2015 08/22/2015 Inactive hydrocodone 10 mg-acetaminophen 325 mg tablet RxNorm: 671706 1-2 Tablet(s) PO Q6 as needed 06/27/2015 07/25/2015 Inactive lovastatin 20 mg tablet RxNorm: 988483 1 Tablet(s) PO daily 12/16/2015 Inactive hydrocodone 10 mg-acetaminophen 325 mg tablet RxNorm: 741679 1-2 Tablet(s) PO Q6 as needed 05/30/2015 06/26/2015 Inactive lisinopril 10 mg tablet RxNorm: 030546 1 Tablet(s) PO daily 12/16/2015 Inactive lovastatin 10 mg tablet RxNorm: 446888 1 Tablet(s) PO daily 06/12/2015 Inactive hydrocodone 10 mg-acetaminophen 325 mg tablet RxNorm: 538850 1-2 Tablet(s) PO Q6 as needed 05/02/2015 05/29/2015 Inactive hydrocodone 10 mg-acetaminophen 325 mg tablet RxNorm: 646686 1-2 Tablet(s) PO Q6 as needed 04/04/2015 05/01/2015 Inactive hydrocodone 10 mg-acetaminophen 325 mg tablet RxNorm: 176880 1-2 Tablet(s) PO Q6 as needed 03/04/2015 04/02/2015 Inactive atorvastatin 40 mg tablet RxNorm: 428036 1 Tablet(s) PO daily No Start Date Active desoximetasone 0.25 % topical cream RxNorm: 956967 1 Application TOP BID No Start Date Active aspirin 81 mg tablet,delayed release RxNorm: 117138 1 Tablet(s) PO daily No Start Date Active Mobic 15 mg tablet RxNorm: 504656 Tablet(s) PO No Start Date 12/02/2015 Inactive lisinopril 10 mg tablet RxNorm: 645872 1 Tablet(s) PO daily No Start Date 05/29/2015 Inactive metoprolol succinate ER 25 mg tablet,extended release 24 hr RxNorm: 403428 1 Tablet(s) PO daily No Start Date 2016 Inactive lovastatin 10 mg tablet RxNorm: 380244 Tablet(s) PO No Start Date 05/29/2015 Inactive Medication Administered Medication Codes Instructions Start Date Status Kenalog 40 mg/mL suspension for injection RxNorm: 4373246 1Milliliterdaily 09/23/2017 No longer Active Immunizations Vaccine Codes Date Status Pneumococcal (Adult) CVX: 133 12/03/2015 completed Influenza CVX: 141 08/30/2015 completed Influenza CVX: 141 08/06/2014 completed Pneumococcal (Adult) CVX: 33 07/18/2013 completed Tetanus, Diptheria, Pertussis CVX: 113 completed Tetanus/Diptheria CVX: 113 10/17/2011 completed Assessments Condition Codes Effective Dates Mixed hyperlipidemia ICD-10: E78.2 ICD-9: 272.4 12/02/2017 Effusion, right wrist ICD-10: M25.431 ICD-9: 719.03 12/02/2017 Essential (primary) hypertension ICD-10: I10 ICD-9: 401.9 12/02/2017 Pain in right wrist ICD-10: M25.531 ICD-9: 719.43 12/02/2017 Other chronic pain ICD-10: G89.29 ICD-9: 338.29 12/02/2017 Pain in left thigh ICD-10: M79.652 ICD-9: 729.5 09/23/2017 Pain in right shoulder ICD-10: M25.511 ICD-9: 719.41 07/22/2017 Pain in right arm ICD-10: M79.601 ICD-9: 729.5 03/01/2017 Other insomnia ICD-10: G47.09 ICD-9: 327.09 12/23/2016 Pain in right knee ICD-10: M25.561 ICD-9: 719.46 09/29/2016 Pain in left wrist ICD-10: M25.532 ICD-9: 719.43 09/29/2016 Encounter for immunization ICD-10: Z23 ICD-9: V03.9 12/03/2015 Tobacco use ICD-10: Z72.0 ICD-9: 305.1 12/03/2015 Encounter for immunization ICD-10: Z23 ICD-9: V04.81 08/30/2015 Chronic pain ICD-9: 338.29 06/04/2015 HYPERLIPIDEMIA ICD-9: 272.4 06/04/2015 ESSENTIAL HYPERTENSION ICD-9: 401.9 06/04 TOBACCO USE DISORDER ICD-9: 305.1 2014 Right knee pain ICD-9: 719.46 03/06/2015 Reason For Visit Reason For Visit Effective Dates Notes hypertension 12/02/2017 hypertension 09/23/2017 shoulder pain 08/26/2017 arm shoulder pain 07/22/2017 arm hypertension 03/30/2017 shoulder pain 03/01/2017 arm insomnia 12/23/2016 hypertension 09/29/2016 hypertension 06/02/2016 hypertension 12/03/2015 vaccination against influenza 08/30/2015 knee pain 06/04/2015 knee pain 03/06/2015 Results Observation Observation Code Item Item Code Result Date Comp Metabolic Ekz690 NA 138 mEq/L 07/29/2016 Comp Metabolic Qxw703 K 4.4 mEq/L 07/29/2016 Comp Metabolic Bga982 CL 106 mEq/L 07/29/2016 Comp Metabolic Svu002 CO2 25.0 mEq/L 07/29/2016 Comp Metabolic Nbb926 ANION GAP 11 07/29/2016 Comp Metabolic Ztq131 GLUCOSE 105 mg/dL 07/29/2016 Comp Metabolic Jln456 Creat 0.7 mg/dL 07/29/2016 Comp Metabolic Zbr351 eGFR 127 ml/min/1.73m2 07/29/2016 Comp Metabolic Bow058 BUN 13 mg/dL 07/29/2016 Comp Metabolic Pls714 B/C Ratio 19.7 Ratio 07/29/2016 Comp Metabolic Dgj075 CALCIUM 9.0 mg/dL 07/29/2016 Comp Metabolic Idz979 ALK PHOS 81 U/L 07/29/2016 Comp Metabolic Gjc023 AST(SGOT) 16 U/L 07/29/2016 Comp Metabolic Evf773 ALT(SGPT) 15 U/L 07/29/2016 Comp Metabolic Pyq836 BILI T 0.5 mg/dL 07/29/2016 Comp Metabolic Skp127 ALBUMIN 4.4 g/dL 07/29/2016 Comp Metabolic Hsw605 TPRO 6.6 g/dL 07/29/2016 Comp Metabolic Tak825 GLOB 2.2 g/dL 07/29/2016 Comp Metabolic Vfl154 A/G Ratio 2.0 Ratio 07/29/2016 Comp Metabolic Fzl571 Osmo 276 mOsmo 07/29/2016 Lipid Ord30 CHOL 133 mg/dL 07/29/2016 Lipid Ord30 HDL 41.0 mg/dl 07/29/2016 Lipid Ord30 TRIG 67 mg/dL 07/29/2016 Lipid Ord30 LDL 79 mg/dL 07/29/2016 Lipid Ord30 C/HDL 3.2 Ratio 07/29/2016 Magnesium Ord90 Mag 2.1 mg/dL 07/29/2016 Comp Metabolic Mot510 NA 134 mEq/L 06/02/2016 Comp Metabolic Tft404 K 4.5 mEq/L 06/02/2016 Comp Metabolic Tob741 CL 100 mEq/L 06/02/2016 Comp Metabolic Cov845 CO2 28.0 mEq/L 06/02/2016 Comp Metabolic Ehq170 ANION GAP 11 06/02/2016 Comp Metabolic Hus106 GLUCOSE 96 mg/dL 06/02/2016 Comp Metabolic Igi167 Creat 0.7 mg/dL 06/02/2016 Comp Metabolic Fgk924 eGFR 123 ml/min/1.73m2 06/02/2016 Comp Metabolic Hie467 BUN 17 mg/dL 06/02/2016 Comp Metabolic Hwa717 B/C Ratio 25.0 Ratio 06/02/2016 Comp Metabolic Leu819 CALCIUM 9.4 mg/dL 06/02/2016 Comp Metabolic Wgy069 ALK PHOS 57 U/L 06/02/2016 Comp Metabolic Plf736 AST(SGOT) 17 U/L 06/02/2016 Comp Metabolic Tfq877 ALT(SGPT) 19 U/L 06/02/2016 Comp Metabolic Rbv794 BILI T 0.6 mg/dL 06/02/2016 Comp Metabolic Kqw318 ALBUMIN 4.6 g/dL 06/02/2016 Comp Metabolic Gxh448 TPRO 6.9 g/dL 06/02/2016 Comp Metabolic Knz529 GLOB 2.3 g/dL 06/02/2016 Comp Metabolic Jft196 A/G Ratio 2.0 Ratio 06/02/2016 Comp Metabolic Gaa877 Osmo 270 mOsmo 06/02/2016 Tsh Ord6 hTSH II 1.51 uIU/mL 06/02/2016 Lipid Ord30 CHOL 185 mg/dL 06/02/2016 Lipid Ord30 HDL 35.0 mg/dl 06/02/2016 Lipid Ord30 TRIG 105 mg/dL 06/02/2016 Lipid Ord30 LDL 129 mg/dL 06/02/2016 Lipid Ord30 C/HDL 5.3 Ratio 06/02/2016 Cbc With Differential Ord2 WBC 6.34 K/ul 06/02/2016 Cbc With Differential Ord2 RBC 4.55 M/ul 06/02/2016 Cbc With Differential Ord2 HGB 16.0 g/dl 06/02/2016 Cbc With Differential Ord2 Neut% 58.0 % 06/02/2016 Cbc With Differential Ord2 HCT 47.5 % 06/02/2016 Cbc With Differential Ord2 MCV 104.4 fl 06/02/2016 Cbc With Differential Ord2 Lymph% 28.2 % 06/02/2016 Cbc With Differential Ord2 MCH 35.2 pg 06/02/2016 Cbc With Differential Ord2 Beadle% 10.9 % 06/02/2016 Cbc With Differential Ord2 MCHC 33.7 pg 06/02/2016 Cbc With Differential Ord2 Eos% 2.4 % 06/02/2016 Cbc With Differential Ord2 PLT 205 K/ul 06/02/2016 Cbc With Differential Ord2 Baso% 0.5 % 06/02/2016 Cbc With Differential Ord2 RDW 12.9 % 06/02/2016 Cbc With Differential Ord2 Neut ABS# 3.68 K/ul 06/02/2016 Cbc With Differential Ord2 Lymph ABS# 1.79 K/ul 06/02/2016 Cbc With Differential Ord2 Beadle ABS# 0.7 K/ul 06/02/2016 Cbc With Differential Ord2 Eos ABS# 0.2 K/ul 06/02/2016 Cbc With Differential Ord2 Baso ABS# 0.0 K/ul 06/02/2016 Cbc With Differential Ord2 WBC 7.10 K/ul 03/09/2016 Cbc With Differential Ord2 RBC 4.31 M/ul 03/09/2016 Cbc With Differential Ord2 HGB 14.9 g/dl 03/09/2016 Cbc With Differential Ord2 Neut% 58.8 % 03/09/2016 Cbc With Differential Ord2 HCT 45.0 % 03/09/2016 Cbc With Differential Ord2 MCV 104.4 fl 03/09/2016 Cbc With Differential Ord2 Lymph% 26.6 % 03/09/2016 Cbc With Differential Ord2 MCH 34.6 pg 03/09/2016 Cbc With Differential Ord2 Beadle% 11.1 % 03/09/2016 Cbc With Differential Ord2 MCHC 33.1 pg 03/09/2016 Cbc With Differential Ord2 Eos% 3.1 % 03/09/2016 Cbc With Differential Ord2 PLT 191 K/ul 03/09/2016 Cbc With Differential Ord2 Baso% 0.4 % 03/09/2016 Cbc With Differential Ord2 RDW 12.7 % 03/09/2016 Cbc With Differential Ord2 Neut ABS# 4.17 K/ul 03/09/2016 Cbc With Differential Ord2 Lymph ABS# 1.89 K/ul 03/09/2016 Cbc With Differential Ord2 Beadle ABS# 0.8 K/ul 03/09/2016 Cbc With Differential Ord2 Eos ABS# 0.2 K/ul 03/09/2016 Cbc With Differential Ord2 Baso ABS# 0.0 K/ul 03/09/2016 Cbc With Differential Ord2 New Analyzer Notice Please note new ref ranges starting 10-30-2015 due to implemntation of new five part differential hematolgy analyzer. 03/09/2016 Tsh Ord6 hTSH II 1.19 uIU/mL 12/03/2015 Total Psa Ord10 PSA 0.70 ng/mL 12/03/2015 Lipid Ord30 CHOL 188 mg/dL 12/03/2015 Lipid Ord30 HDL 43.0 mg/dl 12/03/2015 Lipid Ord30 TRIG 117 mg/dL 12/03/2015 Lipid Ord30 LDL 122 mg/dL 12/03/2015 Lipid Ord30 C/HDL 4.4 Ratio 12/03/2015 Comp Metabolic Zyh370 NA 135 mEq/L 12/03/2015 Comp Metabolic Cjg461 K 4.1 mEq/L 12/03/2015 Comp Metabolic Ahv585 CL 100 mEq/L 12/03/2015 Comp Metabolic Lds979 CO2 28.0 mEq/L 12/03/2015 Comp Metabolic Yuj953 ANION GAP 11 12/03/2015 Comp Metabolic Giy689 GLUCOSE 111 mg/dL 12/03/2015 Comp Metabolic Dch683 Creat 0.8 mg/dL 12/03/2015 Comp Metabolic Kgb586 eGFR 108 ml/min/1.73m2 12/03/2015 Comp Metabolic Ypa850 BUN 15 mg/dL 12/03/2015 Comp Metabolic Bvw519 B/C Ratio 19.7 Ratio 12/03/2015 Comp Metabolic Afd048 CALCIUM 9.2 mg/dL 12/03/2015 Comp Metabolic Hey160 ALK PHOS 61 U/L 12/03/2015 Comp Metabolic Cgj618 AST(SGOT) 18 U/L 12/03/2015 Comp Metabolic Uwl225 ALT(SGPT) 19 U/L 12/03/2015 Comp Metabolic Yul080 BILI T 0.6 mg/dL 12/03/2015 Comp Metabolic Dym223 ALBUMIN 4.5 g/dL 12/03/2015 Comp Metabolic Ysy556 TPRO 6.8 g/dL 12/03/2015 Comp Metabolic Kqp391 GLOB 2.3 g/dL 12/03/2015 Comp Metabolic Mws679 A/G Ratio 2.0 Ratio 12/03/2015 Comp Metabolic Edo002 Osmo 272 mOsmo 12/03/2015 Cbc With Differential Ord2 WBC 11.90 K/ul 12/03/2015 Cbc With Differential Ord2 RBC 4.35 M/ul 12/03/2015 Cbc With Differential Ord2 HGB 15.2 g/dl 12/03/2015 Cbc With Differential Ord2 Neut% 72.0 % 12/03/2015 Cbc With Differential Ord2 HCT 45.7 % 12/03/2015 Cbc With Differential Ord2 Lymph% 18.2 % 12/03/2015 Cbc With Differential Ord2 MCV 105.1 fl 12/03/2015 Cbc With Differential Ord2 Beadle% 8.7 % 12/03/2015 Cbc With Differential Ord2 MCH 34.9 pg 12/03/2015 Cbc With Differential Ord2 Eos% 0.8 % 12/03/2015 Cbc With Differential Ord2 MCHC 33.3 pg 12/03/2015 Cbc With Differential Ord2 PLT 203 K/ul 12/03/2015 Cbc With Differential Ord2 Baso% 0.3 % 12/03/2015 Cbc With Differential Ord2 Neut ABS# 8.59 K/ul 12/03/2015 Cbc With Differential Ord2 RDW 13.0 % 12/03/2015 Cbc With Differential Ord2 Lymph ABS# 2.16 K/ul 12/03/2015 Cbc With Differential Ord2 Beadle ABS# 1.0 K/ul 12/03/2015 Cbc With Differential Ord2 Eos ABS# 0.1 K/ul 12/03/2015 Cbc With Differential Ord2 Baso ABS# 0.0 K/ul 12/03/2015 Cbc With Differential Ord2 New Analyzer Notice Please note new ref ranges starting 10-30-2015 due to implemntation of new five part differential hematolgy analyzer. 12/03/2015 Cbc With Differential Ord2 WBC 7.8 K/uL 06/07/2015 Cbc With Differential Ord2 LYM 1.8 K/uL 06/07/2015 Cbc With Differential Ord2 LYM% 22.6 % 06/07/2015 Cbc With Differential Ord2 NEUT/GRAN 5.6 K/uL 06/07/2015 Cbc With Differential Ord2 NEUT/GRAN % 71.6 % 06/07/2015 Cbc With Differential Ord2 MID 0.5 K/uL 06/07/2015 Cbc With Differential Ord2 MID% 5.8 % 06/07/2015 Cbc With Differential Ord2 RBC 4.12 M/uL 06/07/2015 Cbc With Differential Ord2 HGB 14.6 g/dL 06/07/2015 Cbc With Differential Ord2 HCT 43.8 % 06/07/2015 Cbc With Differential Ord2 MCV 106 fL 06/07/2015 Cbc With Differential Ord2 MCH 35 pg 06/07/2015 Cbc With Differential Ord2 MCHC 33 g/dL 06/07/2015 Cbc With Differential Ord2 PLT 176 K/uL 06/07/2015 Cbc With Differential Ord2 RDW 12.6 % 06/07/2015 Comp Metabolic Zea281 NA 133 mEq/L 06/07/2015 Comp Metabolic Owf975 K 4.4 mEq/L 06/07/2015 Comp Metabolic Zai444 CL 102 mEq/L 06/07/2015 Comp Metabolic Obj804 CO2 26.0 mEq/L 06/07/2015 Comp Metabolic Pgl942 ANION GAP 9 06/07/2015 Comp Metabolic Cmv126 GLUCOSE 108 mg/dL 06/07/2015 Comp Metabolic Cdb378 Creat 0.7 mg/dL 06/07/2015 Comp Metabolic Lgd846 eGFR 121 ml/min/1.73m2 06/07/2015 Comp Metabolic Iwc864 BUN 15 mg/dL 06/07/2015 Comp Metabolic Lac438 B/C Ratio 21.7 Ratio 06/07/2015 Comp Metabolic Hxr227 CALCIUM 9.1 mg/dL 06/07/2015 Comp Metabolic Glk109 ALK PHOS 55 U/L 06/07/2015 Comp Metabolic Zlx469 AST(SGOT) 17 U/L 06/07/2015 Comp Metabolic Sdh960 ALT(SGPT) 18 U/L 06/07/2015 Comp Metabolic Eqq180 BILI T 0.5 mg/dL 06/07/2015 Comp Metabolic Mcv682 ALBUMIN 4.3 g/dL 06/07/2015 Comp Metabolic Jxk070 TPRO 6.5 g/dL 06/07/2015 Comp Metabolic Tnk518 GLOB 2.2 g/dL 06/07/2015 Comp Metabolic Ryb992 A/G Ratio 2.0 Ratio 06/07/2015 Comp Metabolic Qid060 Osmo 268 mOsmo 06/07/2015 Tsh Ord6 hTSH II 1.75 uIU/mL 06/07/2015 Lipid Ord30 CHOL 179 mg/dL 06/07/2015 Lipid Ord30 HDL 35.0 mg/dl 06/07/2015 Lipid Ord30 TRIG 153 mg/dL 06/07/2015 Lipid Ord30 LDL 113 mg/dL 06/07/2015 Lipid Ord30 C/HDL 5.1 Ratio 06/07/2015 Review of Systems System Result Effective Dates Constitutional No recent illness 2017 Constitutional No chills 12/02/2017 Constitutional No fatigue 12/02/2017 Constitutional No fever 12/02/2017 Constitutional No insomnia 12/02/2017 Constitutional No malaise 12/02/2017 Ears/Nose/Throat/Neck No dizziness 2017 Ears/Nose/Throat/Neck No dysphagia 2017 Ears/Nose/Throat/Neck No headache 2017 Ears/Nose/Throat/Neck No postnasal drip 12/02/2017 Ears/Nose/Throat/Neck No sinus congestion 12/02/2017 Cardiovascular No chest pain/pressure Cardiovascular No dyspnea 12/02/2017 Cardiovascular No edema 12/02/2017 Cardiovascular No exercise intolerance Cardiovascular No fatigue 12/02/2017 Cardiovascular No near-syncope/dizziness 12/02/2017 Respiratory No chest tightness 2017 Respiratory No cough 12/02/2017 Respiratory No dyspnea 12/02/2017 Respiratory No pedal edema 12/02/2017 Gastrointestinal No abdominal pain 2017 Musculoskeletal stiffness 12/02/2017 Musculoskeletal arthralgia(s) 12/02/2017 Musculoskeletal shoulder pain 12/02/2017 Neurologic No dizziness 12/02/2017 Neurologic No headache 12/02/2017 Neurologic No neck pain 12/02/2017 Neurologic No syncope 12/02/2017 Psychiatric No anxiety 12/02/2017 Psychiatric No depression 12/02/2017 Dermatologic No rash 12/02/2017 Dermatologic No scar 12/02/2017 Musculoskeletal joint complaint 2017 Constitutional No recent illness 2016 Constitutional No chills 09/23/2017 Constitutional No fatigue 09/23/2017 Constitutional No fever 09/23/2017 Constitutional No insomnia 09/23/2017 Constitutional No malaise 09/23/2017 Ears/Nose/Throat/Neck No dizziness 2016 Ears/Nose/Throat/Neck No dysphagia 2016 Ears/Nose/Throat/Neck No headache 2016 Ears/Nose/Throat/Neck No postnasal drip 09/23/2017 Ears/Nose/Throat/Neck No sinus congestion 09/23/2017 Cardiovascular No chest pain/pressure 04/2017 Cardiovascular No dyspnea 09/23/2017 Cardiovascular No edema 09/23/2017 Cardiovascular No exercise intolerance Cardiovascular No fatigue 09/23/2017 Cardiovascular No near-syncope/dizziness 09/23/2017 Respiratory No chest tightness 2016 Respiratory No cough 09/23/2017 Respiratory No dyspnea 09/23/2017 Respiratory No pedal edema 09/23/2017 Gastrointestinal No abdominal pain 2016 Musculoskeletal stiffness 09/23/2017 Musculoskeletal arthralgia(s) 09/23/2017 Musculoskeletal shoulder pain 09/23/2017 Neurologic No dizziness 09/23/2017 Neurologic No headache 09/23/2017 Neurologic No neck pain 09/23/2017 Neurologic No syncope 09/23/2017 Psychiatric No anxiety 09/23/2017 Psychiatric No depression 09/23/2017 Constitutional No recent illness 2016 Constitutional No chills 08/26/2017 Constitutional No fatigue 08/26/2017 Constitutional No fever 08/26/2017 Constitutional No insomnia 08/26/2017 Constitutional No malaise 08/26/2017 Ears/Nose/Throat/Neck No dizziness 2016 Ears/Nose/Throat/Neck No dysphagia 2016 Ears/Nose/Throat/Neck No headache 2016 Ears/Nose/Throat/Neck No postnasal drip 08/26/2017 Ears/Nose/Throat/Neck No sinus congestion 08/26/2017 Cardiovascular No chest pain/pressure 06/2017 Cardiovascular No dyspnea 08/26/2017 Cardiovascular No edema 08/26/2017 Cardiovascular No exercise intolerance Cardiovascular No fatigue 08/26/2017 Cardiovascular No near-syncope/dizziness 08/26/2017 Respiratory No chest tightness 2016 Respiratory No cough 08/26/2017 Respiratory No dyspnea 08/26/2017 Respiratory No pedal edema 08/26/2017 Musculoskeletal stiffness 08/26/2017 Musculoskeletal arthralgia(s) 08/26/2017 Musculoskeletal shoulder pain 08/26/2017 Neurologic No dizziness 08/26/2017 Neurologic No headache 08/26/2017 Neurologic No neck pain 08/26/2017 Neurologic No syncope 08/26/2017 Psychiatric No anxiety 08/26/2017 Psychiatric No depression 08/26/2017 Gastrointestinal No abdominal pain 2016 Constitutional No recent illness 2016 Constitutional No chills 07/22/2017 Constitutional fatigue 07/22/2017 Constitutional No fever 07/22/2017 Constitutional No insomnia 07/22/2017 Constitutional No malaise 07/22/2017 Eyes No blindness 07/22/2017 Eyes No vision change 07/22/2017 Cardiovascular No chest pain/pressure 02/2017 Cardiovascular No dyspnea 07/22/2017 Cardiovascular No edema 07/22/2017 Cardiovascular No exercise intolerance Cardiovascular No fatigue 07/22/2017 Cardiovascular No near-syncope/dizziness 07/22/2017 Respiratory No chest tightness 2016 Respiratory No cough 07/22/2017 Respiratory No dyspnea 07/22/2017 Respiratory No pedal edema 07/22/2017 Gastrointestinal No abdominal pain 2016 Gastrointestinal No constipation 2016 Gastrointestinal No diarrhea 07/22/2017 Gastrointestinal No gastroesophageal reflux 07/22/2017 Gastrointestinal No nausea 07/22/2017 Gastrointestinal No vomiting 07/22/2017 Musculoskeletal stiffness 07/22/2017 Musculoskeletal No swelling 07/22/2017 Musculoskeletal No muscle weakness 2016 Musculoskeletal No myalgias 07/22/2017 Musculoskeletal shoulder pain 07/22/2017 Neurologic No dizziness 07/22/2017 Neurologic No headache 07/22/2017 Neurologic No neck pain 07/22/2017 Neurologic No syncope 07/22/2017 Psychiatric No anxiety 07/22/2017 Psychiatric No depression 07/22/2017 Musculoskeletal joint complaint 2016 Musculoskeletal arthralgia(s) 07/22/2017 Constitutional No recent illness 2016 Constitutional No chills 03/30/2017 Constitutional No fatigue 03/30/2017 Constitutional No fever 03/30/2017 Constitutional No insomnia 03/30/2017 Constitutional No malaise 03/30/2017 Eyes No blindness 03/30/2017 Eyes No vision change 03/30/2017 Ears/Nose/Throat/Neck No dizziness 2016 Ears/Nose/Throat/Neck No dysphagia 2016 Ears/Nose/Throat/Neck No headache 2016 Ears/Nose/Throat/Neck No postnasal drip 03/30/2017 Ears/Nose/Throat/Neck No sinus congestion 03/30/2017 Cardiovascular No chest pain/pressure Cardiovascular No dyspnea 03/30/2017 Cardiovascular No edema 03/30/2017 Cardiovascular No exercise intolerance Cardiovascular No fatigue 03/30/2017 Cardiovascular No near-syncope/dizziness 03/30/2017 Respiratory No chest tightness 2016 Respiratory No cough 03/30/2017 Respiratory No dyspnea 03/30/2017 Respiratory No pedal edema 03/30/2017 Gastrointestinal No abdominal pain 2016 Gastrointestinal No constipation 2016 Gastrointestinal No diarrhea 03/30/2017 Gastrointestinal No gastroesophageal reflux 03/30/2017 Gastrointestinal No nausea 03/30/2017 Gastrointestinal No vomiting 03/30/2017 Genitourinary/Nephrology No dysuria 03/30 Genitourinary/Nephrology No nocturia Genitourinary/Nephrology No urinary incontinence 03/30/2017 Musculoskeletal stiffness 03/30/2017 Musculoskeletal No swelling 03/30/2017 Musculoskeletal arthralgia(s) 03/30/2017 Musculoskeletal No muscle weakness 2016 Musculoskeletal No myalgias 03/30/2017 Dermatologic No rash 03/30/2017 Dermatologic No sores 03/30/2017 Dermatologic No scar 03/30/2017 Neurologic No dizziness 03/30/2017 Neurologic No headache 03/30/2017 Neurologic No neck pain 03/30/2017 Neurologic No syncope 03/30/2017 Psychiatric No anxiety 03/30/2017 Psychiatric No depression 03/30/2017 Musculoskeletal shoulder pain 03/30/2017 Constitutional No recent illness 2016 Constitutional No chills 03/01/2017 Constitutional No fever 03/01/2017 Eyes No eye erythema 03/01/2017 Ears/Nose/Throat/Neck No nasal allergies 03/01/2017 Cardiovascular No chest pain/pressure Respiratory No dyspnea 03/01/2017 Respiratory No cough 03/01/2017 Gastrointestinal No abdominal pain 2016 Musculoskeletal joint complaint 2016 Neurologic No alteration of consciousness 03/01/2017 Neurologic No mental status change 2016 Constitutional No recent illness 2016 Constitutional No chills 12/23/2016 Constitutional No fever 12/23/2016 Constitutional insomnia 12/23/2016 Eyes No eye erythema 12/23/2016 Ears/Nose/Throat/Neck No nasal discharge 12/23/2016 Cardiovascular No chest pain/pressure 05/2017 Cardiovascular No dyspnea 12/23/2016 Respiratory No cough 12/23/2016 Respiratory No dyspnea 12/23/2016 Dermatologic rash 12/23/2016 Neurologic No alteration of consciousness 12/23/2016 Neurologic No mental status change 2016 Constitutional No recent illness 2015 Constitutional No chills 09/29/2016 Constitutional No fatigue 09/29/2016 Constitutional No fever 09/29/2016 Constitutional No insomnia 09/29/2016 Constitutional No malaise 09/29/2016 Eyes No blindness 09/29/2016 Eyes No vision change 09/29/2016 Ears/Nose/Throat/Neck No dental pain Ears/Nose/Throat/Neck No dizziness 2015 Ears/Nose/Throat/Neck No dysphagia 2015 Ears/Nose/Throat/Neck No headache 2015 Ears/Nose/Throat/Neck No hearing loss Ears/Nose/Throat/Neck No nasal allergies 09/29/2016 Ears/Nose/Throat/Neck No sore throat Ears/Nose/Throat/Neck No postnasal drip 09/29/2016 Ears/Nose/Throat/Neck No sinus congestion 09/29/2016 Cardiovascular No chest pain/pressure Cardiovascular No dyspnea 09/29/2016 Cardiovascular No edema 09/29/2016 Cardiovascular No exercise intolerance Cardiovascular No fatigue 09/29/2016 Cardiovascular No near-syncope/dizziness 09/29/2016 Respiratory No chest tightness 2015 Respiratory No cough 09/29/2016 Respiratory No dyspnea 09/29/2016 Respiratory No pedal edema 09/29/2016 Gastrointestinal No abdominal pain 2015 Gastrointestinal No constipation 2015 Gastrointestinal No diarrhea 09/29/2016 Gastrointestinal No gastroesophageal reflux 09/29/2016 Gastrointestinal No nausea 09/29/2016 Gastrointestinal No vomiting 09/29/2016 Genitourinary/Nephrology No dysuria 09/29 Genitourinary/Nephrology No nocturia Genitourinary/Nephrology No urinary incontinence 09/29/2016 Musculoskeletal stiffness 09/29/2016 Musculoskeletal No swelling 09/29/2016 Musculoskeletal No muscle weakness 2015 Musculoskeletal No myalgias 09/29/2016 Dermatologic No rash 09/29/2016 Dermatologic No sores 09/29/2016 Dermatologic No scar 09/29/2016 Neurologic No dizziness 09/29/2016 Neurologic No headache 09/29/2016 Neurologic No neck pain 09/29/2016 Neurologic No syncope 09/29/2016 Psychiatric No anxiety 09/29/2016 Psychiatric No depression 09/29/2016 Ears/Nose/Throat/Neck taste change 2015 Musculoskeletal arthralgia(s) 09/29/2016 Constitutional No recent illness 2015 Constitutional No chills 06/02/2016 Constitutional No fatigue 06/02/2016 Constitutional No fever 06/02/2016 Constitutional No insomnia 06/02/2016 Constitutional No malaise 06/02/2016 Eyes No blindness 06/02/2016 Eyes No vision change 06/02/2016 Ears/Nose/Throat/Neck No dental pain Ears/Nose/Throat/Neck No dizziness 2015 Ears/Nose/Throat/Neck No dysphagia 2015 Ears/Nose/Throat/Neck No headache 2015 Ears/Nose/Throat/Neck No hearing loss Ears/Nose/Throat/Neck No nasal allergies 06/02/2016 Ears/Nose/Throat/Neck No sore throat Ears/Nose/Throat/Neck No postnasal drip 06/02/2016 Ears/Nose/Throat/Neck No sinus congestion 06/02/2016 Cardiovascular No chest pain/pressure Cardiovascular No dyspnea 06/02/2016 Cardiovascular No edema 06/02/2016 Cardiovascular No exercise intolerance Cardiovascular No fatigue 06/02/2016 Cardiovascular No near-syncope/dizziness 06/02/2016 Respiratory No chest tightness 2015 Respiratory No cough 06/02/2016 Respiratory No dyspnea 06/02/2016 Respiratory No pedal edema 06/02/2016 Gastrointestinal No abdominal pain 2015 Gastrointestinal No constipation 2015 Gastrointestinal No diarrhea 06/02/2016 Gastrointestinal No gastroesophageal reflux 06/02/2016 Gastrointestinal No nausea 06/02/2016 Gastrointestinal No vomiting 06/02/2016 Genitourinary/Nephrology No dysuria 06/02 Genitourinary/Nephrology No nocturia Genitourinary/Nephrology No urinary incontinence 06/02/2016 Musculoskeletal stiffness 06/02/2016 Musculoskeletal No swelling 06/02/2016 Musculoskeletal arthralgia(s) 06/02/2016 Musculoskeletal No muscle weakness 2015 Musculoskeletal No myalgias 06/02/2016 Dermatologic No rash 06/02/2016 Dermatologic No sores 06/02/2016 Dermatologic No scar 06/02/2016 Neurologic No dizziness 06/02/2016 Neurologic No headache 06/02/2016 Neurologic No neck pain 06/02/2016 Neurologic No syncope 06/02/2016 Psychiatric No anxiety 06/02/2016 Psychiatric No depression 06/02/2016 Constitutional No recent illness 2015 Constitutional No chills 12/03/2015 Constitutional No fatigue 12/03/2015 Constitutional No fever 12/03/2015 Constitutional No insomnia 12/03/2015 Constitutional No malaise 12/03/2015 Eyes No blindness 12/03/2015 Eyes No vision change 12/03/2015 Ears/Nose/Throat/Neck No dental pain Ears/Nose/Throat/Neck No dizziness 2015 Ears/Nose/Throat/Neck No dysphagia 2015 Ears/Nose/Throat/Neck No headache 2015 Ears/Nose/Throat/Neck No hearing loss Ears/Nose/Throat/Neck No nasal allergies 12/03/2015 Ears/Nose/Throat/Neck No sore throat Ears/Nose/Throat/Neck No postnasal drip 12/03/2015 Ears/Nose/Throat/Neck No sinus congestion 12/03/2015 Cardiovascular No chest pain/pressure Cardiovascular No dyspnea 12/03/2015 Cardiovascular No edema 12/03/2015 Cardiovascular No exercise intolerance Cardiovascular No fatigue 12/03/2015 Cardiovascular No near-syncope/dizziness 12/03/2015 Respiratory No chest tightness 2015 Respiratory No cough 12/03/2015 Respiratory No dyspnea 12/03/2015 Respiratory No pedal edema 12/03/2015 Gastrointestinal No abdominal pain 2015 Gastrointestinal No constipation 2015 Gastrointestinal No diarrhea 12/03/2015 Gastrointestinal No gastroesophageal reflux 12/03/2015 Gastrointestinal No nausea 12/03/2015 Gastrointestinal No vomiting 12/03/2015 Genitourinary/Nephrology No dysuria 12/03 Genitourinary/Nephrology No nocturia Genitourinary/Nephrology No urinary incontinence 12/03/2015 Musculoskeletal stiffness 12/03/2015 Musculoskeletal No swelling 12/03/2015 Musculoskeletal arthralgia(s) 12/03/2015 Musculoskeletal No muscle weakness 2015 Musculoskeletal No myalgias 12/03/2015 Dermatologic No rash 12/03/2015 Dermatologic No sores 12/03/2015 Dermatologic No scar 12/03/2015 Neurologic No dizziness 12/03/2015 Neurologic No headache 12/03/2015 Neurologic No neck pain 12/03/2015 Neurologic No syncope 12/03/2015 Psychiatric No anxiety 12/03/2015 Psychiatric No depression 12/03/2015 Constitutional No recent illness 2014 Constitutional No chills 06/04/2015 Constitutional No fatigue 06/04/2015 Constitutional No fever 06/04/2015 Constitutional No insomnia 06/04/2015 Constitutional No malaise 06/04/2015 Eyes No blindness 06/04/2015 Eyes No vision change 06/04/2015 Ears/Nose/Throat/Neck No dental pain Ears/Nose/Throat/Neck No dizziness 2014 Ears/Nose/Throat/Neck No dysphagia 2014 Ears/Nose/Throat/Neck No headache 2014 Ears/Nose/Throat/Neck No hearing loss Ears/Nose/Throat/Neck No nasal allergies 06/04/2015 Ears/Nose/Throat/Neck No sore throat Ears/Nose/Throat/Neck No postnasal drip 06/04/2015 Ears/Nose/Throat/Neck No sinus congestion 06/04/2015 Cardiovascular No chest pain/pressure Cardiovascular No dyspnea 06/04/2015 Cardiovascular No edema 06/04/2015 Cardiovascular No exercise intolerance Cardiovascular No fatigue 06/04/2015 Cardiovascular No near-syncope/dizziness 06/04/2015 Respiratory No chest tightness 2014 Respiratory No cough 06/04/2015 Respiratory No dyspnea 06/04/2015 Respiratory No pedal edema 06/04/2015 Gastrointestinal No abdominal pain 2014 Gastrointestinal No constipation 2014 Gastrointestinal No diarrhea 06/04/2015 Gastrointestinal No gastroesophageal reflux 06/04/2015 Gastrointestinal No nausea 06/04/2015 Gastrointestinal No vomiting 06/04/2015 Genitourinary/Nephrology No dysuria 06/04 Genitourinary/Nephrology No nocturia Genitourinary/Nephrology No urinary incontinence 06/04/2015 Musculoskeletal stiffness 06/04/2015 Musculoskeletal No swelling 06/04/2015 Musculoskeletal No muscle weakness 2014 Musculoskeletal No myalgias 06/04/2015 Dermatologic No rash 06/04/2015 Dermatologic No sores 06/04/2015 Dermatologic No scar 06/04/2015 Neurologic No dizziness 06/04/2015 Neurologic No headache 06/04/2015 Neurologic No neck pain 06/04/2015 Neurologic No syncope 06/04/2015 Psychiatric No anxiety 06/04/2015 Psychiatric No depression 06/04/2015 Musculoskeletal arthralgia(s) 06/04/2015 Constitutional No fatigue 03/06/2015 Constitutional No fever 03/06/2015 Cardiovascular No chest pain/pressure Cardiovascular No dyspnea 03/06/2015 Cardiovascular No edema 03/06/2015 Respiratory cigarette smoking 03/06/2015 Respiratory No cough 03/06/2015 Gastrointestinal No gas and bloating Gastrointestinal No gastroesophageal reflux 03/06/2015 Gastrointestinal No constipation 2014 Gastrointestinal No diarrhea 03/06/2015 Genitourinary/Nephrology No dysuria 03/06 Genitourinary/Nephrology No hematuria Dermatologic No rash 03/06/2015 Dermatologic No sores 03/06/2015 Musculoskeletal arthralgia(s) 03/06/2015 Physical Exam Exam Name System Name Item Name Status Result Effective Dates Notes Full Exam - General 1994 Constitutional general appearance Development: well developed 12/02/2017 None Full Exam - General 1994 Constitutional general appearance Development: appears stated age 0212/02/2017 None Full Exam - General 1994 Constitutional general appearance Hygiene/Attention to Grooming: good hygiene 12/02/2017 None Full Exam - General 1994 Eyes conjunctiva /eyelids Overall: conjunctiva clear 12/02/2017 None Full Exam - General 1994 Eyes conjunctiva /eyelids Overall: cornea clear 12/02/2017 None Full Exam - General 1994 Eyes conjunctiva /eyelids Overall: eyelids normal 12/02/2017 None Full Exam - General 1994 Eyes pupils and irises Overall: pupils equal, round, reactive to light and accomodation 12/02/2017 None Full Exam - General 1994 Ears/Nose/Throat otoscopic exam External auditory canal: complete cerumen impaction 12/02/2017 None Full Exam - General 1994 Ears/Nose/Throat lips/teeth/gingiva Overall: benign lips 12/02/2017 None Full Exam - General 1994 Ears/Nose/Throat lips/teeth/gingiva Overall: normal dentition 12/02/2017 None Full Exam - General 1994 Ears/Nose/Throat oral cavity/pharynx/larynx Overall: oral mucosa clear 12/02/2017 None Full Exam - General 1994 Ears/Nose/Throat oral cavity/pharynx/larynx Overall: oropharyngeal mucosa clear 12/02/2017 None Full Exam - General 1994 Ears/Nose/Throat oral cavity/pharynx/larynx Overall: hypopharynx benign 12/02/2017 None Full Exam - General 1994 Ears/Nose/Throat oral cavity/pharynx/larynx Overall: no masses 12/02/2017 None Full Exam - General 1994 Respiratory auscultation Overall: breath sounds clear bilaterally 12/02/2017 None Full Exam - General 1994 Respiratory respiratory effort/rhythm Overall: no retractions 12/02/2017 None Full Exam - General 1994 Respiratory respiratory effort/rhythm Overall: normal rate 12/02/2017 None Full Exam - General 1994 Cardiovascular extremities Overall: no clubbing 12/02/2017 None Full Exam - General 1994 Cardiovascular auscultation of heart Overall: regular rate 12/02/2017 None Full Exam - General 1994 Cardiovascular auscultation of heart Overall: normal heart sounds 12/02/2017 None Full Exam - General 1994 Abdomen abdominal exam Overall: no tenderness 12/02/2017 None Full Exam - General 1994 Abdomen abdominal exam Overall: normal bowel sounds 12/02/2017 None Full Exam - General 1994 Musculoskeletal spine, ribs and pelvis Overall: sacroiliac joint benign 12/02/2017 None Full Exam - General 1994 Musculoskeletal spine, ribs and pelvis Overall: good posture 12/02/2017 None Full Exam - General 1994 Musculoskeletal head and neck Overall: head atraumatic 12/02/2017 None Full Exam - General 1994 Musculoskeletal head and neck Overall: cervical spine benign 12/02/2017 None Full Exam - General 1994 Psychiatric orientation/consciousness Overall: oriented to person, place and time 12/02/2017 None Full Exam - General 1994 Psychiatric mood and affect Overall: normal mood and affect 12/02/2017 None Full Exam - General 1994 Constitutional general appearance Development: well developed 09/23/2017 None Full Exam - General 1994 Constitutional general appearance Development: appears stated age 1209/23/2017 None Full Exam - General 1994 Constitutional general appearance Hygiene/Attention to Grooming: good hygiene 09/23/2017 None Full Exam - General 1994 Eyes conjunctiva /eyelids Overall: conjunctiva clear 09/23/2017 None Full Exam - General 1994 Eyes conjunctiva /eyelids Overall: cornea clear 09/23/2017 None Full Exam - General 1994 Eyes conjunctiva /eyelids Overall: eyelids normal 09/23/2017 None Full Exam - General 1994 Eyes pupils and irises Overall: pupils equal, round, reactive to light and accomodation 09/23/2017 None Full Exam - General 1994 Ears/Nose/Throat otoscopic exam External auditory canal: complete cerumen impaction 09/23/2017 None Full Exam - General 1994 Ears/Nose/Throat lips/teeth/gingiva Overall: benign lips 09/23/2017 None Full Exam - General 1994 Ears/Nose/Throat lips/teeth/gingiva Overall: normal dentition 09/23/2017 None Full Exam - General 1994 Ears/Nose/Throat oral cavity/pharynx/larynx Overall: oral mucosa clear 09/23/2017 None Full Exam - General 1994 Ears/Nose/Throat oral cavity/pharynx/larynx Overall: oropharyngeal mucosa clear 09/23/2017 None Full Exam - General 1994 Ears/Nose/Throat oral cavity/pharynx/larynx Overall: hypopharynx benign 09/23/2017 None Full Exam - General 1994 Ears/Nose/Throat oral cavity/pharynx/larynx Overall: no masses 09/23/2017 None Full Exam - General 1994 Respiratory auscultation Overall: breath sounds clear bilaterally 09/23/2017 None Full Exam - General 1994 Respiratory respiratory effort/rhythm Overall: no retractions 09/23/2017 None Full Exam - General 1994 Respiratory respiratory effort/rhythm Overall: normal rate 09/23/2017 None Full Exam - General 1994 Cardiovascular extremities Overall: no clubbing 09/23/2017 None Full Exam - General 1994 Cardiovascular auscultation of heart Overall: regular rate 09/23/2017 None Full Exam - General 1994 Cardiovascular auscultation of heart Overall: normal heart sounds 09/23/2017 None Full Exam - General 1994 Abdomen abdominal exam Overall: no tenderness 09/23/2017 None Full Exam - General 1994 Abdomen abdominal exam Overall: normal bowel sounds 09/23/2017 None Full Exam - General 1994 Musculoskeletal spine, ribs and pelvis Overall: sacroiliac joint benign 09/23/2017 None Full Exam - General 1994 Musculoskeletal spine, ribs and pelvis Overall: good posture 09/23/2017 None Full Exam - General 1994 Musculoskeletal head and neck Overall: head atraumatic 09/23/2017 None Full Exam - General 1994 Musculoskeletal head and neck Overall: cervical spine benign 09/23/2017 None Full Exam - General 1994 Psychiatric orientation/consciousness Overall: oriented to person, place and time 09/23/2017 None Full Exam - General 1994 Psychiatric mood and affect Overall: normal mood and affect 09/23/2017 None Full Exam - General 1994 Musculoskeletal lower extremity Palpation - thigh: tenderness 09/23/2017 anteriorly on left hip near greater trochanter insertion site - 1mL of kenalog at site of tenderness Full Exam - General 1994 Constitutional general appearance Development: well developed 08/26/2017 None Full Exam - General 1994 Constitutional general appearance Development: appears stated age 1108/26/2017 None Full Exam - General 1994 Constitutional general appearance Hygiene/Attention to Grooming: good hygiene 08/26/2017 None Full Exam - General 1994 Eyes conjunctiva /eyelids Overall: conjunctiva clear 08/26/2017 None Full Exam - General 1994 Eyes conjunctiva /eyelids Overall: cornea clear 08/26/2017 None Full Exam - General 1994 Eyes conjunctiva /eyelids Overall: eyelids normal 08/26/2017 None Full Exam - General 1994 Eyes pupils and irises Overall: pupils equal, round, reactive to light and accomodation 08/26/2017 None Full Exam - General 1994 Ears/Nose/Throat otoscopic exam External auditory canal: complete cerumen impaction 08/26/2017 None Full Exam - General 1994 Ears/Nose/Throat lips/teeth/gingiva Overall: benign lips 08/26/2017 None Full Exam - General 1994 Ears/Nose/Throat lips/teeth/gingiva Overall: normal dentition 08/26/2017 None Full Exam - General 1994 Ears/Nose/Throat oral cavity/pharynx/larynx Overall: oral mucosa clear 08/26/2017 None Full Exam - General 1994 Ears/Nose/Throat oral cavity/pharynx/larynx Overall: oropharyngeal mucosa clear 08/26/2017 None Full Exam - General 1994 Ears/Nose/Throat oral cavity/pharynx/larynx Overall: hypopharynx benign 08/26/2017 None Full Exam - General 1994 Ears/Nose/Throat oral cavity/pharynx/larynx Overall: no masses 08/26/2017 None Full Exam - General 1994 Respiratory auscultation Overall: breath sounds clear bilaterally 08/26/2017 None Full Exam - General 1994 Respiratory respiratory effort/rhythm Overall: no retractions 08/26/2017 None Full Exam - General 1994 Respiratory respiratory effort/rhythm Overall: normal rate 08/26/2017 None Full Exam - General 1994 Cardiovascular extremities Overall: no clubbing 08/26/2017 None Full Exam - General 1994 Cardiovascular auscultation of heart Overall: regular rate 08/26/2017 None Full Exam - General 1994 Cardiovascular auscultation of heart Overall: normal heart sounds 08/26/2017 None Full Exam - General 1994 Abdomen abdominal exam Overall: no tenderness 08/26/2017 None Full Exam - General 1994 Abdomen abdominal exam Overall: normal bowel sounds 08/26/2017 None Full Exam - General 1994 Musculoskeletal spine, ribs and pelvis Overall: sacroiliac joint benign 08/26/2017 None Full Exam - General 1994 Musculoskeletal spine, ribs and pelvis Overall: good posture 08/26/2017 None Full Exam - General 1994 Musculoskeletal head and neck Overall: head atraumatic 08/26/2017 None Full Exam - General 1994 Musculoskeletal head and neck Overall: cervical spine benign 08/26/2017 None Full Exam - General 1994 Psychiatric orientation/consciousness Overall: oriented to person, place and time 08/26/2017 None Full Exam - General 1994 Psychiatric mood and affect Overall: normal mood and affect 08/26/2017 None Full Exam - General 1994 Constitutional general appearance Development: well developed 07/22/2017 None Full Exam - General 1994 Constitutional general appearance Development: appears stated age 1007/22/2017 None Full Exam - General 1994 Constitutional general appearance Hygiene/Attention to Grooming: good hygiene 07/22/2017 None Full Exam - General 1994 Eyes conjunctiva /eyelids Overall: conjunctiva clear 07/22/2017 None Full Exam - General 1994 Eyes conjunctiva /eyelids Overall: cornea clear 07/22/2017 None Full Exam - General 1994 Eyes conjunctiva /eyelids Overall: eyelids normal 07/22/2017 None Full Exam - General 1994 Eyes pupils and irises Overall: pupils equal, round, reactive to light and accomodation 07/22/2017 None Full Exam - General 1994 Ears/Nose/Throat otoscopic exam External auditory canal: complete cerumen impaction 07/22/2017 None Full Exam - General 1994 Ears/Nose/Throat lips/teeth/gingiva Overall: benign lips 07/22/2017 None Full Exam - General 1994 Ears/Nose/Throat lips/teeth/gingiva Overall: normal dentition 07/22/2017 None Full Exam - General 1994 Ears/Nose/Throat oral cavity/pharynx/larynx Overall: oral mucosa clear 07/22/2017 None Full Exam - General 1994 Ears/Nose/Throat oral cavity/pharynx/larynx Overall: oropharyngeal mucosa clear 07/22/2017 None Full Exam - General 1994 Ears/Nose/Throat oral cavity/pharynx/larynx Overall: hypopharynx benign 07/22/2017 None Full Exam - General 1994 Ears/Nose/Throat oral cavity/pharynx/larynx Overall: no masses 07/22/2017 None Full Exam - General 1994 Respiratory auscultation Overall: breath sounds clear bilaterally 07/22/2017 None Full Exam - General 1994 Respiratory respiratory effort/rhythm Overall: no retractions 07/22/2017 None Full Exam - General 1994 Respiratory respiratory effort/rhythm Overall: normal rate 07/22/2017 None Full Exam - General 1994 Cardiovascular extremities Overall: no clubbing 07/22/2017 None Full Exam - General 1994 Cardiovascular auscultation of heart Overall: regular rate 07/22/2017 None Full Exam - General 1994 Cardiovascular auscultation of heart Overall: normal heart sounds 07/22/2017 None Full Exam - General 1994 Abdomen abdominal exam Overall: no tenderness 07/22/2017 None Full Exam - General 1994 Abdomen abdominal exam Overall: normal bowel sounds 07/22/2017 None Full Exam - General 1994 Musculoskeletal upper extremity Palpation - shoulder: tenderness @ subacromial space 07/22/2017 None Full Exam - General 1994 Musculoskeletal upper extremity Palpation - shoulder: tenderness @ bicipital groove 07/22/2017 None Full Exam - General 1994 Musculoskeletal spine, ribs and pelvis Overall: good posture 07/22/2017 None Full Exam - General 1994 Psychiatric orientation/consciousness Overall: oriented to person, place and time 07/22/2017 None Full Exam - General 1994 Psychiatric mood and affect Overall: normal mood and affect 07/22/2017 None Full Exam - General 1994 Constitutional general appearance Development: well developed 03/30/2017 None Full Exam - General 1994 Constitutional general appearance Development: appears stated age 0603/30/2017 None Full Exam - General 1994 Constitutional general appearance Hygiene/Attention to Grooming: good hygiene 03/30/2017 None Full Exam - General 1994 Eyes conjunctiva /eyelids Overall: conjunctiva clear 03/30/2017 None Full Exam - General 1994 Eyes conjunctiva /eyelids Overall: cornea clear 03/30/2017 None Full Exam - General 1994 Eyes conjunctiva /eyelids Overall: eyelids normal 03/30/2017 None Full Exam - General 1994 Eyes pupils and irises Overall: pupils equal, round, reactive to light and accomodation 03/30/2017 None Full Exam - General 1994 Ears/Nose/Throat otoscopic exam External auditory canal: complete cerumen impaction 03/30/2017 None Full Exam - General 1994 Ears/Nose/Throat lips/teeth/gingiva Overall: benign lips 03/30/2017 None Full Exam - General 1994 Ears/Nose/Throat lips/teeth/gingiva Overall: normal dentition 03/30/2017 None Full Exam - General 1994 Ears/Nose/Throat oral cavity/pharynx/larynx Overall: oral mucosa clear 03/30/2017 None Full Exam - General 1994 Ears/Nose/Throat oral cavity/pharynx/larynx Overall: oropharyngeal mucosa clear 03/30/2017 None Full Exam - General 1994 Ears/Nose/Throat oral cavity/pharynx/larynx Overall: hypopharynx benign 03/30/2017 None Full Exam - General 1994 Ears/Nose/Throat oral cavity/pharynx/larynx Overall: no masses 03/30/2017 None Full Exam - General 1994 Respiratory auscultation Overall: breath sounds clear bilaterally 03/30/2017 None Full Exam - General 1994 Respiratory respiratory effort/rhythm Overall: no retractions 03/30/2017 None Full Exam - General 1994 Respiratory respiratory effort/rhythm Overall: normal rate 03/30/2017 None Full Exam - General 1994 Cardiovascular extremities Overall: no clubbing 03/30/2017 None Full Exam - General 1994 Cardiovascular auscultation of heart Overall: regular rate 03/30/2017 None Full Exam - General 1994 Cardiovascular auscultation of heart Overall: normal heart sounds 03/30/2017 None Full Exam - General 1994 Abdomen abdominal exam Overall: no tenderness 03/30/2017 None Full Exam - General 1994 Abdomen abdominal exam Overall: normal bowel sounds 03/30/2017 None Full Exam - General 1994 Lymphatic neck nodes Overall: anterior cervical chain benign 03/30/2017 None Full Exam - General 1994 Lymphatic neck nodes Overall: posterior cervical chain benign 03/30/2017 None Full Exam - General 1994 Musculoskeletal lower extremity Palpation - knee: crepitus 03/30/2017 None Full Exam - General 1994 Musculoskeletal spine, ribs and pelvis Overall: spine benign 03/30/2017 None Full Exam - General 1994 Musculoskeletal spine, ribs and pelvis Overall: sacroiliac joint benign 03/30/2017 None Full Exam - General 1994 Musculoskeletal spine, ribs and pelvis Overall: good posture 03/30/2017 None Full Exam - General 1994 Musculoskeletal head and neck Overall: head atraumatic 03/30/2017 None Full Exam - General 1994 Musculoskeletal head and neck Overall: cervical spine benign 03/30/2017 None Full Exam - General 1994 Integument inspection of skin Overall: few scattered moles, no gross abnormalities 03/30/2017 None Full Exam - General 1994 Neurologic deep tendon reflexes Overall: deep tendon reflexes intact 03/30/2017 None Full Exam - General 1994 Neurologic cranial nerves Overall: crainial nerves 2 - 12 grossly intact 03/30/2017 None Full Exam - General 1994 Psychiatric orientation/consciousness Overall: oriented to person, place and time 03/30/2017 None Full Exam - General 1994 Psychiatric mood and affect Overall: normal mood and affect 03/30/2017 None Full Exam - General 1994 Musculoskeletal upper extremity Palpation - shoulder: tenderness @ bicipital groove 03/30/2017 None Full Exam - General 1994 Musculoskeletal upper extremity Palpation - shoulder: tenderness @ subacromial space 03/30/2017 None Full Exam - General 1994 Constitutional general appearance Overall: well developed 03/01/2017 None Full Exam - General 1994 Constitutional general appearance Overall: in no acute distress 03/01/2017 None Full Exam - General 1994 Constitutional general appearance Overall: well nourished 03/01/2017 None Full Exam - General 1994 Eyes conjunctiva /eyelids Overall: conjunctiva clear 03/01/2017 None Full Exam - General 1994 Eyes conjunctiva /eyelids Overall: eyelids normal 03/01/2017 None Full Exam - General 1994 Ears/Nose/Throat lips/teeth/gingiva Overall: benign lips 03/01/2017 None Full Exam - General 1994 Ears/Nose/Throat oral cavity/pharynx/larynx Overall: oral mucosa clear 03/01/2017 None Full Exam - General 1994 Respiratory respiratory effort/rhythm Overall: no retractions 03/01/2017 None Full Exam - General 1994 Respiratory respiratory effort/rhythm Overall: normal rate 03/01/2017 None Full Exam - General 1994 Musculoskeletal upper extremity Overall: normal shoulder 03/01/2017 None Full Exam - General 1994 Musculoskeletal upper extremity Overall: normal elbow 03/01/2017 None Full Exam - General 1994 Musculoskeletal upper extremity Palpation - upper arm: normal on palpation 03/01/2017 None Full Exam - General 1994 Musculoskeletal gait and station Overall: normal gait 03/01/2017 None Full Exam - General 1994 Musculoskeletal gait and station Overall: normal station 03/01/2017 None Full Exam - General 1994 Neurologic cranial nerves Overall: crainial nerves 2 - 12 grossly intact 03/01/2017 None Full Exam - General 1994 Psychiatric orientation/consciousness Overall: oriented to person, place and time 03/01/2017 None Full Exam - General 1994 Psychiatric mood and affect Overall: normal mood and affect 03/01/2017 None Full Exam - General 1994 Constitutional general appearance Overall: well developed 12/23/2016 None Full Exam - General 1994 Constitutional general appearance Overall: in no acute distress 12/23/2016 None Full Exam - General 1994 Constitutional general appearance Overall: well nourished 12/23/2016 None Full Exam - General 1994 Eyes conjunctiva /eyelids Overall: conjunctiva clear 12/23/2016 None Full Exam - General 1994 Eyes conjunctiva /eyelids Overall: eyelids normal 12/23/2016 None Full Exam - General 1994 Ears/Nose/Throat lips/teeth/gingiva Overall: benign lips 12/23/2016 None Full Exam - General 1994 Ears/Nose/Throat oral cavity/pharynx/larynx Overall: oral mucosa clear 12/23/2016 None Full Exam - General 1994 Respiratory respiratory effort/rhythm Overall: no retractions 12/23/2016 None Full Exam - General 1994 Respiratory respiratory effort/rhythm Overall: normal rate 12/23/2016 None Full Exam - General 1994 Neurologic cranial nerves Overall: crainial nerves 2 - 12 grossly intact 12/23/2016 None Full Exam - General 1994 Neurologic gait Overall: no ataxia, no unsteadiness 12/23/2016 None Full Exam - General 1994 Psychiatric orientation/consciousness Overall: oriented to person, place and time 12/23/2016 None Full Exam - General 1994 Psychiatric mood and affect Overall: normal mood and affect 12/23/2016 None Full Exam - General 1994 Psychiatric appearance Overall: well-groomed, good eye contact 12/23/2016 None Full Exam - General 1994 Constitutional general appearance Development: well developed 09/29/2016 None Full Exam - General 1994 Constitutional general appearance Development: appears stated age 1209/29/2016 None Full Exam - General 1994 Constitutional general appearance Hygiene/Attention to Grooming: good hygiene 09/29/2016 None Full Exam - General 1994 Eyes conjunctiva /eyelids Overall: conjunctiva clear 09/29/2016 None Full Exam - General 1994 Eyes conjunctiva /eyelids Overall: cornea clear 09/29/2016 None Full Exam - General 1994 Eyes conjunctiva /eyelids Overall: eyelids normal 09/29/2016 None Full Exam - General 1994 Eyes pupils and irises Overall: pupils equal, round, reactive to light and accomodation 09/29/2016 None Full Exam - General 1994 Ears/Nose/Throat otoscopic exam External auditory canal: complete cerumen impaction 09/29/2016 None Full Exam - General 1994 Ears/Nose/Throat lips/teeth/gingiva Overall: benign lips 09/29/2016 None Full Exam - General 1994 Ears/Nose/Throat lips/teeth/gingiva Overall: normal dentition 09/29/2016 None Full Exam - General 1994 Ears/Nose/Throat oral cavity/pharynx/larynx Overall: oral mucosa clear 09/29/2016 None Full Exam - General 1994 Ears/Nose/Throat oral cavity/pharynx/larynx Overall: oropharyngeal mucosa clear 09/29/2016 None Full Exam - General 1994 Ears/Nose/Throat oral cavity/pharynx/larynx Overall: hypopharynx benign 09/29/2016 None Full Exam - General 1994 Ears/Nose/Throat oral cavity/pharynx/larynx Overall: no masses 09/29/2016 None Full Exam - General 1994 Respiratory auscultation Overall: breath sounds clear bilaterally 09/29/2016 None Full Exam - General 1994 Respiratory respiratory effort/rhythm Overall: no retractions 09/29/2016 None Full Exam - General 1994 Respiratory respiratory effort/rhythm Overall: normal rate 09/29/2016 None Full Exam - General 1994 Cardiovascular extremities Overall: no clubbing 09/29/2016 None Full Exam - General 1994 Cardiovascular auscultation of heart Overall: regular rate 09/29/2016 None Full Exam - General 1994 Cardiovascular auscultation of heart Overall: normal heart sounds 09/29/2016 None Full Exam - General 1994 Abdomen abdominal exam Overall: no tenderness 09/29/2016 None Full Exam - General 1994 Abdomen abdominal exam Overall: normal bowel sounds 09/29/2016 None Full Exam - General 1994 Lymphatic neck nodes Overall: anterior cervical chain benign 09/29/2016 None Full Exam - General 1994 Lymphatic neck nodes Overall: posterior cervical chain benign 09/29/2016 None Full Exam - General 1994 Musculoskeletal lower extremity Palpation - knee: crepitus 09/29/2016 None Full Exam - General 1994 Musculoskeletal spine, ribs and pelvis Overall: spine benign 09/29/2016 None Full Exam - General 1994 Musculoskeletal spine, ribs and pelvis Overall: sacroiliac joint benign 09/29/2016 None Full Exam - General 1994 Musculoskeletal spine, ribs and pelvis Overall: good posture 09/29/2016 None Full Exam - General 1994 Musculoskeletal head and neck Overall: head atraumatic 09/29/2016 None Full Exam - General 1994 Musculoskeletal head and neck Overall: cervical spine benign 09/29/2016 None Full Exam - General 1994 Integument inspection of skin Overall: few scattered moles, no gross abnormalities 09/29/2016 None Full Exam - General 1994 Neurologic deep tendon reflexes Overall: deep tendon reflexes intact 09/29/2016 None Full Exam - General 1994 Neurologic cranial nerves Overall: crainial nerves 2 - 12 grossly intact 09/29/2016 None Full Exam - General 1994 Psychiatric orientation/consciousness Overall: oriented to person, place and time 09/29/2016 None Full Exam - General 1994 Psychiatric mood and affect Overall: normal mood and affect 09/29/2016 None Full Exam - General 1994 Musculoskeletal upper extremity ROM - wrist: decreased flexion 09/29/2016 None Full Exam - General 1994 Musculoskeletal upper extremity ROM - wrist: decreased extension 09/29/2016 None Full Exam - General 1994 Constitutional general appearance Development: well developed 06/02/2016 None Full Exam - General 1994 Constitutional general appearance Development: appears stated age 0806/02/2016 None Full Exam - General 1994 Constitutional general appearance Hygiene/Attention to Grooming: good hygiene 06/02/2016 None Full Exam - General 1994 Eyes conjunctiva /eyelids Overall: conjunctiva clear 06/02/2016 None Full Exam - General 1994 Eyes conjunctiva /eyelids Overall: cornea clear 06/02/2016 None Full Exam - General 1994 Eyes conjunctiva /eyelids Overall: eyelids normal 06/02/2016 None Full Exam - General 1994 Eyes pupils and irises Overall: pupils equal, round, reactive to light and accomodation 06/02/2016 None Full Exam - General 1994 Ears/Nose/Throat otoscopic exam External auditory canal: complete cerumen impaction 06/02/2016 None Full Exam - General 1994 Ears/Nose/Throat lips/teeth/gingiva Overall: benign lips 06/02/2016 None Full Exam - General 1994 Ears/Nose/Throat lips/teeth/gingiva Overall: normal dentition 06/02/2016 None Full Exam - General 1994 Ears/Nose/Throat oral cavity/pharynx/larynx Overall: oral mucosa clear 06/02/2016 None Full Exam - General 1994 Ears/Nose/Throat oral cavity/pharynx/larynx Overall: oropharyngeal mucosa clear 06/02/2016 None Full Exam - General 1994 Ears/Nose/Throat oral cavity/pharynx/larynx Overall: hypopharynx benign 06/02/2016 None Full Exam - General 1994 Ears/Nose/Throat oral cavity/pharynx/larynx Overall: no masses 06/02/2016 None Full Exam - General 1994 Respiratory auscultation Overall: breath sounds clear bilaterally 06/02/2016 None Full Exam - General 1994 Respiratory respiratory effort/rhythm Overall: no retractions 06/02/2016 None Full Exam - General 1994 Respiratory respiratory effort/rhythm Overall: normal rate 06/02/2016 None Full Exam - General 1994 Cardiovascular extremities Overall: no clubbing 06/02/2016 None Full Exam - General 1994 Cardiovascular auscultation of heart Overall: regular rate 06/02/2016 None Full Exam - General 1994 Cardiovascular auscultation of heart Overall: normal heart sounds 06/02/2016 None Full Exam - General 1994 Abdomen abdominal exam Overall: no tenderness 06/02/2016 None Full Exam - General 1994 Abdomen abdominal exam Overall: normal bowel sounds 06/02/2016 None Full Exam - General 1994 Lymphatic neck nodes Overall: anterior cervical chain benign 06/02/2016 None Full Exam - General 1994 Lymphatic neck nodes Overall: posterior cervical chain benign 06/02/2016 None Full Exam - General 1994 Musculoskeletal lower extremity Palpation - knee: crepitus 06/02/2016 None Full Exam - General 1994 Musculoskeletal spine, ribs and pelvis Overall: spine benign 06/02/2016 None Full Exam - General 1994 Musculoskeletal spine, ribs and pelvis Overall: sacroiliac joint benign 06/02/2016 None Full Exam - General 1994 Musculoskeletal spine, ribs and pelvis Overall: good posture 06/02/2016 None Full Exam - General 1994 Musculoskeletal head and neck Overall: head atraumatic 06/02/2016 None Full Exam - General 1994 Musculoskeletal head and neck Overall: cervical spine benign 06/02/2016 None Full Exam - General 1994 Integument inspection of skin Overall: few scattered moles, no gross abnormalities 06/02/2016 None Full Exam - General 1994 Neurologic deep tendon reflexes Overall: deep tendon reflexes intact 06/02/2016 None Full Exam - General 1994 Neurologic cranial nerves Overall: crainial nerves 2 - 12 grossly intact 06/02/2016 None Full Exam - General 1994 Psychiatric orientation/consciousness Overall: oriented to person, place and time 06/02/2016 None Full Exam - General 1994 Psychiatric mood and affect Overall: normal mood and affect 06/02/2016 None Full Exam - General 1994 Constitutional general appearance Development: well developed 12/03/2015 None Full Exam - General 1994 Constitutional general appearance Development: appears stated age 0212/03/2015 None Full Exam - General 1994 Constitutional general appearance Hygiene/Attention to Grooming: good hygiene 12/03/2015 None Full Exam - General 1994 Eyes conjunctiva /eyelids Overall: conjunctiva clear 12/03/2015 None Full Exam - General 1994 Eyes conjunctiva /eyelids Overall: cornea clear 12/03/2015 None Full Exam - General 1994 Eyes conjunctiva /eyelids Overall: eyelids normal 12/03/2015 None Full Exam - General 1994 Eyes pupils and irises Overall: pupils equal, round, reactive to light and accomodation 12/03/2015 None Full Exam - General 1994 Ears/Nose/Throat otoscopic exam External auditory canal: complete cerumen impaction 12/03/2015 None Full Exam - General 1994 Ears/Nose/Throat lips/teeth/gingiva Overall: benign lips 12/03/2015 None Full Exam - General 1994 Ears/Nose/Throat lips/teeth/gingiva Overall: normal dentition 12/03/2015 None Full Exam - General 1994 Ears/Nose/Throat oral cavity/pharynx/larynx Overall: oral mucosa clear 12/03/2015 None Full Exam - General 1994 Ears/Nose/Throat oral cavity/pharynx/larynx Overall: oropharyngeal mucosa clear 12/03/2015 None Full Exam - General 1994 Ears/Nose/Throat oral cavity/pharynx/larynx Overall: hypopharynx benign 12/03/2015 None Full Exam - General 1994 Ears/Nose/Throat oral cavity/pharynx/larynx Overall: no masses 12/03/2015 None Full Exam - General 1994 Respiratory auscultation Overall: breath sounds clear bilaterally 12/03/2015 None Full Exam - General 1994 Respiratory respiratory effort/rhythm Overall: no retractions 12/03/2015 None Full Exam - General 1994 Respiratory respiratory effort/rhythm Overall: normal rate 12/03/2015 None Full Exam - General 1994 Cardiovascular extremities Overall: no clubbing 12/03/2015 None Full Exam - General 1994 Cardiovascular auscultation of heart Overall: regular rate 12/03/2015 None Full Exam - General 1994 Cardiovascular auscultation of heart Overall: normal heart sounds 12/03/2015 None Full Exam - General 1994 Abdomen abdominal exam Overall: no tenderness 12/03/2015 None Full Exam - General 1994 Abdomen abdominal exam Overall: normal bowel sounds 12/03/2015 None Full Exam - General 1994 Lymphatic neck nodes Overall: anterior cervical chain benign 12/03/2015 None Full Exam - General 1994 Lymphatic neck nodes Overall: posterior cervical chain benign 12/03/2015 None Full Exam - General 1994 Musculoskeletal lower extremity Palpation - knee: crepitus 12/03/2015 None Full Exam - General 1994 Musculoskeletal spine, ribs and pelvis Overall: spine benign 12/03/2015 None Full Exam - General 1994 Musculoskeletal spine, ribs and pelvis Overall: sacroiliac joint benign 12/03/2015 None Full Exam - General 1994 Musculoskeletal spine, ribs and pelvis Overall: good posture 12/03/2015 None Full Exam - General 1994 Musculoskeletal head and neck Overall: head atraumatic 12/03/2015 None Full Exam - General 1994 Musculoskeletal head and neck Overall: cervical spine benign 12/03/2015 None Full Exam - General 1994 Integument inspection of skin Overall: few scattered moles, no gross abnormalities 12/03/2015 None Full Exam - General 1994 Neurologic deep tendon reflexes Overall: deep tendon reflexes intact 12/03/2015 None Full Exam - General 1994 Neurologic cranial nerves Overall: crainial nerves 2 - 12 grossly intact 12/03/2015 None Full Exam - General 1994 Psychiatric orientation/consciousness Overall: oriented to person, place and time 12/03/2015 None Full Exam - General 1994 Psychiatric mood and affect Overall: normal mood and affect 12/03/2015 None Full Exam - General 1994 Constitutional general appearance Development: well developed 06/04/2015 None Full Exam - General 1994 Constitutional general appearance Development: appears stated age 0806/04/2015 None Full Exam - General 1994 Constitutional general appearance Hygiene/Attention to Grooming: good hygiene 06/04/2015 None Full Exam - General 1994 Eyes conjunctiva /eyelids Overall: conjunctiva clear 06/04/2015 None Full Exam - General 1994 Eyes conjunctiva /eyelids Overall: cornea clear 06/04/2015 None Full Exam - General 1994 Eyes conjunctiva /eyelids Overall: eyelids normal 06/04/2015 None Full Exam - General 1994 Eyes pupils and irises Overall: pupils equal, round, reactive to light and accomodation 06/04/2015 None Full Exam - General 1994 Ears/Nose/Throat lips/teeth/gingiva Overall: benign lips 06/04/2015 None Full Exam - General 1994 Ears/Nose/Throat lips/teeth/gingiva Overall: normal dentition 06/04/2015 None Full Exam - General 1994 Ears/Nose/Throat oral cavity/pharynx/larynx Overall: oral mucosa clear 06/04/2015 None Full Exam - General 1994 Ears/Nose/Throat oral cavity/pharynx/larynx Overall: oropharyngeal mucosa clear 06/04/2015 None Full Exam - General 1994 Ears/Nose/Throat oral cavity/pharynx/larynx Overall: hypopharynx benign 06/04/2015 None Full Exam - General 1994 Ears/Nose/Throat oral cavity/pharynx/larynx Overall: no masses 06/04/2015 None Full Exam - General 1994 Respiratory auscultation Overall: breath sounds clear bilaterally 06/04/2015 None Full Exam - General 1994 Respiratory respiratory effort/rhythm Overall: no retractions 06/04/2015 None Full Exam - General 1994 Respiratory respiratory effort/rhythm Overall: normal rate 06/04/2015 None Full Exam - General 1994 Cardiovascular extremities Overall: no clubbing 06/04/2015 None Full Exam - General 1994 Cardiovascular auscultation of heart Overall: regular rate 06/04/2015 None Full Exam - General 1994 Cardiovascular auscultation of heart Overall: normal heart sounds 06/04/2015 None Full Exam - General 1994 Abdomen abdominal exam Overall: no tenderness 06/04/2015 None Full Exam - General 1994 Abdomen abdominal exam Overall: normal bowel sounds 06/04/2015 None Full Exam - General 1994 Lymphatic neck nodes Overall: anterior cervical chain benign 06/04/2015 None Full Exam - General 1994 Lymphatic neck nodes Overall: posterior cervical chain benign 06/04/2015 None Full Exam - General 1994 Musculoskeletal spine, ribs and pelvis Overall: spine benign 06/04/2015 None Full Exam - General 1994 Musculoskeletal spine, ribs and pelvis Overall: sacroiliac joint benign 06/04/2015 None Full Exam - General 1994 Musculoskeletal spine, ribs and pelvis Overall: good posture 06/04/2015 None Full Exam - General 1994 Musculoskeletal head and neck Overall: head atraumatic 06/04/2015 None Full Exam - General 1994 Musculoskeletal head and neck Overall: cervical spine benign 06/04/2015 None Full Exam - General 1994 Integument inspection of skin Overall: few scattered moles, no gross abnormalities 06/04/2015 None Full Exam - General 1994 Neurologic deep tendon reflexes Overall: deep tendon reflexes intact 06/04/2015 None Full Exam - General 1994 Neurologic cranial nerves Overall: crainial nerves 2 - 12 grossly intact 06/04/2015 None Full Exam - General 1994 Psychiatric orientation/consciousness Overall: oriented to person, place and time 06/04/2015 None Full Exam - General 1994 Psychiatric mood and affect Overall: normal mood and affect 06/04/2015 None Full Exam - General 1994 Musculoskeletal lower extremity Palpation - knee: crepitus 06/04/2015 None Full Exam - General 1994 Ears/Nose/Throat otoscopic exam External auditory canal: complete cerumen impaction 06/04/2015 None Full Exam - Orthopedics Psychiatric orientation/consciousness Overall: oriented to person, place and time 03/06/2015 None Full Exam - Orthopedics Neurological deep tendon reflex/nerve stretch Overall: deep tendon reflexes intact 03/06/2015 None Full Exam - Orthopedics Integument insp & palp - head & neck Overall: no rash or lesions 03/06/2015 None Full Exam - Orthopedics MS: right lower extremity insp & palp - RLE Knee: nodule 03/06/2015 Mosher's Cyst Full Exam - Orthopedics MS: right lower extremity insp & palp - RLE Knee: joint tenderness 03/06/2015 None Full Exam - Orthopedics Musculoskeletal gait and station Conventional walking: abnormal on right 03/06/2015 None Full Exam - Orthopedics Lymphatic palpation Overall: benign anterior cervical chain 03/06/2015 None Full Exam - Orthopedics Lymphatic palpation Overall: benign posterior cervical chain 03/06/2015 None Full Exam - Orthopedics Abdomen abdominal exam Overall: no tenderness 03/06/2015 None Full Exam - Orthopedics Abdomen abdominal exam Overall: normal bowel sounds 03/06/2015 None Full Exam - Orthopedics Cardiovascular examination of vasculature Overall: no clubbing, cyanosis, edema 03/06/2015 None Full Exam - Orthopedics Respiratory auscultation Overall: clear to auscultation in all sandra 03/06/2015 None Full Exam - Orthopedics Respiratory auscultation Overall: breath sounds clear bilaterally 03/06/2015 None Full Exam - Orthopedics Neck thyroid Overall: normal size 03/06 None Full Exam - Orthopedics Neck thyroid Overall: normal consistency 03/06/2015 None Full Exam - Orthopedics Ears/Nose/Throat external ear Overall: normal appearance 03/06/2015 None Full Exam - Orthopedics Ears/Nose/Throat external ear Overall: no masses 03/06/2015 None Full Exam - Orthopedics Constitutional general appearance Overall: well nourished 03/06/2015 None Full Exam - Orthopedics Constitutional general appearance Overall: well developed 03/06/2015 None Full Exam - Orthopedics Eyes pupils and irises Overall: pupils equal, round, reactive to light and accomodation 03/06/2015 None Procedures Procedure Codes Date INJ TRIGGER POINT 10/19 MUSCL CPT-4: 76684 09/23/2017 TRIAMCINOLONE ACET INJ NOS CPT-4: J3301 09/23/2017 APPENDECTOMY CPT-4: 21356 01/16/2017 TOBACCO-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 TRIMMER FINE 3-[address]: 873704061 CPT-4: G0436 12/03/2015 PNEUMOCOCCAL VACC 13 MIGUEL ÁNGEL IM SNOM[address]: 96388556 CPT-4: 32455 12/03/2015 IMMUNIZATION ADMIN CPT -4: 31690 12/03/2015 ADMIN INFLUENZA VIRUS VAC CPT-4: G0008 08/30/2015 FLU VACC PRSV FREE INC ANTIG Formatting Model/CDA Sections, Assigned to/Camila Chance CPT-4: 61594Cojlazt 08/30/2015 Vital Signs Date Vital 12/02/2017 Blood Pressure 1: 138/74 Code : 8480-6 BMI: 27.7 Code : 03833-7 Heart Rate 1 : 74 bpm Height: 5'8" SpO2: 92% Weight: 182 lbs 09/23/2017 Blood Pressure 1: 132/64 Code : 8480-6 BMI: 27.5 Code : 53576-0 Heart Rate 1 : 62 bpm Height: 5'8" SpO2: 96% Weight: 181 lbs 08/26/2017 Blood Pressure 1: 142/74 Code : 8480-6 Blood Pressure 1: 136/76 Code: 8480-6 BMI: 27.6 Code: 94865-0 Heart Rate 1: 72 bpm Height: 5'8" SpO2: 95% Weight: 181 lbs 8 oz 07/22/2017 Blood Pressure 1: 156/80 Code : 8480-6 BMI: 28.0 Code : 94471-4 Heart Rate 1 : 69 bpm Height: 5'8" SpO2: 95% Weight: 184 lbs 03/30/2017 Blood Pressure 1: 140/80 Code : 8480-6 BMI: 26.6 Code : 38516-9 Heart Rate 1 : 63 bpm Height: 5'8" SpO2: 96% Weight: 175 lbs 03/01/2017 Blood Pressure 1: 124/80 Code : 8480-6 BMI: 26.5 Code : 78611-0 Heart Rate 1 : 68 bpm Height: 5'8" SpO2: 97% Weight: 174 lbs 12/23/2016 Blood Pressure 1: 144/82 Code : 8480-6 BMI: 26.6 Code : 26168-4 Heart Rate 1 : 65 bpm Height: 5'8" SpO2: 945% Weight: 175 lbs 09/29/2016 Blood Pressure 1: 124/78 Code : 8480-6 BMI: 25.4 Code : 81778-6 Heart Rate 1 : 62 bpm Height: 5'8" SpO2: 96% Weight: 167 lbs 06/02/2016 Blood Pressure 1: 150/80 Code : 8480-6 BMI: 26.3 Code : 48434-5 Heart Rate 1 : 64 bpm Height: 5'8" SpO2: 96% Weight: 173 lbs 12/03/2015 Blood Pressure 1: 132/78 Code : 8480-6 BMI: 26.5 Code : 58736-5 Heart Rate 1 : 68 bpm Height: 5'8" SpO2: 97% Weight: 174 lbs 06/04/2015 Blood Pressure 1: 120/62 Code : 8480-6 Blood Pressure 1: 120/72 Code: 8480-6 BMI: 25.4 Code: 28737-3 Heart Rate 1: 67 bpm Height: 5'10" SpO2: 95% Weight: 175 lbs 03/06/2015 Blood Pressure 1: 142/84 Code : 8480-6 BMI: 26.9 Code : 75899-5 Heart Rate 1 : 76 bpm Height: 5'8" Respiratory Rate: 20 bpm SpO2: 95% Weight: 177 lbs Functional Status No Functional Status data History of Present Illness Symptom Name Status Result Effective Date Notes hypertension Quality chronic 12/02/2017 None hypertension Onset and Resolution ongoing 12/02/2017 None hypertension Onset of Symptom during adulthood 12/02/2017 None hypertension Severity mild 12/02/2017 pt reports that he thinks donnell this blood pressure machine is not working well - he thinks that his hypertension Triggers stress 12/02/2017 None hip pain Location on the left 12/02/2017 None hip pain Quality tenderness 12/02/2017 None hip pain Quality intermittent 12/02/2017 None hip pain Severity moderate 12/02/2017 None hip pain Pertinent Findings limping 12/02/2017 None hip pain Pertinent Findings pain with movement 12/02/2017 None hip pain Quality stable 12/02/2017 None hypertension Quality chronic 09/23/2017 None hypertension Onset and Resolution ongoing 09/23/2017 None hypertension Onset of Symptom during adulthood 09/23/2017 None hypertension Severity mild 09/23/2017 pt reports that he thinks donnell this blood pressure machine is not working well - he thinks that his hypertension Triggers stress 09/23/2017 None hip pain Location on the left 09/23/2017 None hip pain Quality tenderness 09/23/2017 None hip pain Quality intermittent 09/23/2017 None hip pain Severity moderate 09/23/2017 None hip pain Pertinent Findings limping 09/23/2017 None hip pain Pertinent Findings pain with movement 09/23/2017 None shoulder pain Location diffusely 08/26/2017 None shoulder pain Quality aching 08/26/2017 None shoulder pain Quality constant 08/26/2017 None shoulder pain Quality intermittent 08/26/2017 None shoulder pain Quality sharp 08/26/2017 None shoulder pain Quality stabbing 08/26/2017 None shoulder pain Onset and Resolution ongoing 08/26/2017 None shoulder pain Onset of Symptom 1 months ago 08/26/2017 None shoulder pain Frequency of Episodes daily 08/26/2017 None leg pain/sciatica Quality sharp pain 08/26/2017 None leg pain/sciatica Quality intermittent 08/26/2017 None leg pain/sciatica Pertinent Findings male 08/26/2017 None leg pain/sciatica Pertinent Findings 62 years 08/26/2017 None shoulder pain Location diffusely 07/22/2017 None shoulder pain Quality aching 07/22/2017 None shoulder pain Quality constant 07/22/2017 None shoulder pain Onset of Symptom 1 months ago 07/22/2017 None shoulder pain Frequency of Episodes daily 07/22/2017 None shoulder pain Quality intermittent 07/22/2017 None shoulder pain Quality sharp 07/22/2017 None shoulder pain Quality stabbing 07/22/2017 None shoulder pain Onset and Resolution ongoing 07/22/2017 None hypertension Quality stable 03/30/2017 None hypertension Onset and Resolution ongoing 03/30/2017 None hypertension Blood Pressure Values not checking blood pressure at home 03/30/2017 None hypertension Alleviating Factors medication 03/30/2017 None hypertension Pertinent Findings Denies dizziness 03/30/2017 None hypertension Pertinent Findings Denies dyspnea 03/30/2017 None hypertension Pertinent Findings Denies edema 03/30/2017 None shoulder pain Location diffusely 03/01/2017 None shoulder pain Quality aching 03/01/2017 None shoulder pain Quality constant 03/01/2017 None shoulder pain Onset and Resolution sudden in onset 03/01/2017 None shoulder pain Onset of Symptom 1 months ago 03/01/2017 None shoulder pain Frequency of Episodes daily 03/01/2017 None insomnia Quality chronic 12/23/2016 None insomnia Quality difficulty falling asleep 12/23/2016 None insomnia Quality disrupted sleep 12/23/2016 None insomnia Quality early awakening 12/23/2016 None insomnia Onset and Resolution ongoing 12/23/2016 None insomnia Onset of Symptom years ago 12/23/2016 None insomnia Severity moderate 12/23/2016 None insomnia Pertinent Findings Denies fever 12/23/2016 None hypertension Quality stable 09/29/2016 None hypertension Onset and Resolution ongoing 09/29/2016 None hypertension Blood Pressure Values not checking blood pressure at home 09/29/2016 None hypertension Alleviating Factors medication 09/29/2016 None hypertension Pertinent Findings Denies dizziness 09/29/2016 None hypertension Pertinent Findings Denies dyspnea 09/29/2016 None hypertension Pertinent Findings Denies edema 09/29/2016 None hyperlipidemia Onset and Resolution gradual in onset 09/29/2016 None hyperlipidemia Onset and Resolution ongoing 09/29/2016 None hyperlipidemia Onset of Symptom during adulthood 09/29/2016 None hyperlipidemia Alleviating Factors medication 09/29/2016 None hyperlipidemia Exacerbating Factors diet 09/29/2016 None wrist pain Location on the left 09/29/2016 None wrist pain Location on the right 09/29/2016 None wrist pain Quality chronic 09/29/2016 None wrist pain Quality intermittent 09/29/2016 None wrist pain Onset and Resolution gradual in onset 09/29/2016 None wrist pain Onset and Resolution ongoing 09/29/2016 None wrist pain Alleviating Factors rest 09/29/2016 None knee pain Location on the right 09/29/2016 None taste change Quality partial loss of all tastes 09/29/2016 None taste change Onset and Resolution sudden in onset 09/29/2016 None taste change Onset and Resolution ongoing 09/29/2016 None knee pain Quality chronic 09/29/2016 None knee pain Quality stable 09/29/2016 None knee pain Frequency of Episodes unchanged 09/29/2016 None wrist pain Frequency of Episodes unchanged 09/29/2016 None knee pain Exacerbating Factors exertion 09/29/2016 None knee pain Exacerbating Factors weight bearing 09/29/2016 None knee pain Pertinent Findings pain with movement 09/29/2016 None taste change Triggers no known associated factors 09/29/2016 None taste change Significant Medical Conditions surgery 09/29/2016 bypass taste change Onset of Symptom 3+ months ago 09/29/2016 None hypertension Quality stable 06/02/2016 None hypertension Onset and Resolution ongoing 06/02/2016 None hypertension Blood Pressure Values not checking blood pressure at home 06/02/2016 None hypertension Alleviating Factors medication 06/02/2016 None hypertension Pertinent Findings Denies dizziness 06/02/2016 None hypertension Pertinent Findings Denies dyspnea 06/02/2016 None hypertension Pertinent Findings Denies edema 06/02/2016 None hyperlipidemia Onset and Resolution ongoing 06/02/2016 None hyperlipidemia Alleviating Factors medication 06/02/2016 None hyperlipidemia Onset and Resolution gradual in onset 06/02/2016 None hyperlipidemia Onset of Symptom during adulthood 06/02/2016 None hyperlipidemia Exacerbating Factors diet 06/02/2016 None wrist pain Location on the left 06/02/2016 None wrist pain Location on the right 06/02/2016 None wrist pain Quality intermittent 06/02/2016 None wrist pain Quality chronic 06/02/2016 None wrist pain Onset and Resolution gradual in onset 06/02/2016 None wrist pain Onset and Resolution ongoing 06/02/2016 None wrist pain Alleviating Factors rest 06/02/2016 None hypertension Onset and Resolution ongoing 12/03/2015 None hypertension Blood Pressure Values not checking blood pressure at home 12/03/2015 None hypertension Alleviating Factors medication 12/03/2015 None hypertension Pertinent Findings Denies dizziness 12/03/2015 None hypertension Pertinent Findings Denies dyspnea 12/03/2015 None hypertension Pertinent Findings Denies edema 12/03/2015 None hypertension Quality stable 12/03/2015 None hyperlipidemia Onset and Resolution ongoing 12/03/2015 None hyperlipidemia Alleviating Factors medication 12/03/2015 None knee pain Location on the right 06/04/2015 None knee pain Location in the anterior region 06/04/2015 None knee pain Location in the posterior region 06/04/2015 None knee pain Quality catching 06/04/2015 None knee pain Quality giving way 06/04/2015 None knee pain Quality popping 06/04/2015 None knee pain Quality sharp pain 06/04/2015 None knee pain Quality tenderness 06/04/2015 None knee pain Quality throbbing 06/04/2015 None knee pain Onset and Resolution gradual in onset 06/04/2015 None knee pain Onset of Symptom 2-3 years ago 06/04/2015 None knee pain Frequency of Episodes increasing 06/04/2015 None knee pain Limitation on Activities moderately limits activities 06/04/2015 None knee pain Severity moderate 06/04/2015 None knee pain Location on the right 03/06/2015 None knee pain Location in the anterior region 03/06/2015 None knee pain Location in the posterior region 03/06/2015 None knee pain Quality catching 03/06/2015 None knee pain Quality giving way 03/06/2015 None knee pain Quality popping 03/06/2015 None knee pain Quality sharp pain 03/06/2015 None knee pain Quality tenderness 03/06/2015 None knee pain Quality throbbing 03/06/2015 None knee pain Onset and Resolution gradual in onset 03/06/2015 None knee pain Onset of Symptom 2-3 years ago 03/06/2015 None knee pain Frequency of Episodes increasing 03/06/2015 None knee pain Limitation on Activities moderately limits activities 03/06/2015 None knee pain Severity moderate 03/06/2015 None Advance Directives No Advance Directive data Encounters Encounter Performer Location Codes [id number]) [id number] EST. PATIENT, LEVEL IV Diagnosis: Essential (primary) hypertension[ICD10: I10] Diagnosis: Mixed hyperlipidemia[ICD10: E78.2] Diagnosis: Other chronic pain[ICD10: G89.29] Diagnosis: Pain in right wrist[ICD10: M25.531] Diagnosis: Effusion, right wrist[ICD10: M25.431] Ramila Esposito MD, [facility] CPT-4: 07578 12/02/2017 ([id number]) 16119 EST. PATIENT, LEVEL III Diagnosis: Essential (primary) hypertension[ICD10: I10] Diagnosis: Pain in left thigh[ICD10: M79.652] Ramila Esposito MD, [facility] CPT-4: 06987 09/23/2017 ([id number]) 18774 EST. PATIENT, LEVEL III Diagnosis: Essential (primary) hypertension[ICD10: I10] Diagnosis: Other chronic pain[ICD10: G89.29] Ramila Esposito MD, [facility] CPT-4: 56828 08/26/2017 ([id number]) 05835 EST. PATIENT, LEVEL III Diagnosis: Other chronic pain[ICD10: G89.29] Diagnosis: Pain in right shoulder[ICD10: M25.511] Diagnosis: Essential (primary) hypertension[ICD10: I10] Ramila sEposito MD, [facility] CPT-4: 57205 07/22/2017 ([id number]) 91830 EST. PATIENT, LEVEL IV Diagnosis: Essential (primary) hypertension[ICD10: I10] Diagnosis: Other chronic pain[ICD10: G89.29] Diagnosis: Mixed hyperlipidemia[ICD10: E78.2] Diagnosis: Pain in right shoulder[ICD10: M25.511] Ramila Esposito MD, [facility] CPT-4: 01204 03/30/2017 [id number] EST. PATIENT, LEVEL IV Diagnosis: Pain in right arm[ICD10: M79.601] Gabby Esposito MD, [facility] CPT -4: 24302 03/01/2017 ([id number]) 47917 EST. PATIENT, LEVEL III Diagnosis: Other insomnia[ICD10: G47.09] Gabby Esposito MD, [facility] CPT-4 : 43374 12/23/2016 ([id number]) 99099 EST. PATIENT, LEVEL IV Diagnosis: Essential (primary) hypertension[ICD10: I10] Diagnosis: Pain in right knee[ICD10: M25.561] Diagnosis: Pain in left wrist[ICD10: M25.532] Diagnosis: Pain in right wrist[ICD10: M25.531] Ramila Esposito MD, [facility] CPT-4: 43319 09/29/2016 ([id number]) 62901 EST. PATIENT, LEVEL IV Diagnosis: Mixed hyperlipidemia[ICD10: E78.2] Diagnosis: Other chronic pain[ICD10: G89.29] Diagnosis: Essential (primary) hypertension[ICD10: I10] Diagnosis: Pain in right knee[ICD10: M25.561] Ramila Esposito MD, [facility] CPT-4: 69306 06/02/2016 ([id number]) 40413 EST. PATIENT, LEVEL IV Diagnosis: Mixed hyperlipidemia[ICD10: E78.2] Diagnosis: Essential (primary) hypertension[ICD10: I10] Diagnosis: Tobacco use[ICD10: Z72.0] Diagnosis: Encounter for immunization[ICD10: Z23] Ramila Esposito MD, [facility] CPT-4: 95515 12/03/2015 ([id number]) OFFICE VISIT, NEW - LEVEL 4 Diagnosis: ESSENTIAL HYPERTENSION[ICD9: 401.9] Diagnosis: HYPERLIPIDEMIA[ICD9: 272.4] Diagnosis: TOBACCO USE DISORDER[ICD9: 305.1] Diagnosis: Chronic pain[ICD9: 338.29] Ramila Esposito MD, [facility] CPT- 4: 45355 06/04/2015 ([id number]) OFFICE VISIT, NEW - LEVEL 3 Diagnosis: Right knee pain[ICD9: 719.46] Lida Esposito MD, [facility] CPT-4 : 73609 03/06/2015 Plan of Care Planned Activity Notes Codes Status Date Visit Plan: Hypertension - well controlled - continue with current medications, continue with no added salt diet. Pt has been encouraged to exercise daily. The pt has been advised to call the office if there are any acute concerns about change in blood pressure readings at home. Referral to Dr. Langford for right hand large cyst - needs removal - painful. Chronic Pain Syndrome - pt has chronic pain - has been maintained on current medications, has not sought out other medications, only uses PRN pain medications as directed , and understands the consequences of over-medication. 12/02/2017 Patient Education: Patient Medication Summary Completed 12/02/2017 Care Plan: Comp Metabolic Pending 12/02/2017 Care Plan: Cbc With Differential Pending 12/02/2017 Care Plan: Tsh Pending 12/02/2017 Care Plan: Lipid Pending 12/02/2017 Care Plan: Total Psa Pending 12/02/2017 Care Plan: Referral Order SNOMED-CT : [id number] Pending 12/02/2017 [facility] [phone] [facility] (15 min) Moderate 09/29/2017 Visit Plan: Hypertension - well controlled - continue with current medications, continue with no added salt diet. Pt has been encouraged to exercise daily. The pt has been advised to call the office if there are any acute concerns about change in blood pressure readings at home. Left thigh pain - vastus lateralis injection 40mg kenalog into trigger point. 09/23/2017 Appointment: [facility] [phone] [facility] (15 min) Moderate 09/23/2017 Patient Education: Patient Medication Summary Completed 09/23/2017 Patient Education: Hypertension Completed 09/23/2017 Visit Plan: Hypertension - well controlled - continue with current medications, continue with no added salt diet. Pt has been encouraged to exercise daily. The pt has been advised to call the office if there are any acute concerns about change in blood pressure readings at home. Chronic pain syndrome - continue with current regimen 08/26/2017 Appointment: [facility] [phone] [facility] (15 min) Moderate 08/26/2017 Patient Education: Patient Medication Summary Completed 08/26/2017 Visit Plan: Hypertension - uncontrolled - the patient's medications have been modified as documented in the visit note. The patient has been counseled to cut back on salt in diet for a no added salt diet, low fat diet, start an exercise program with low weight bearing exercises and higher aerobic activity for heart health. The patient is to check blood pressure readings as an outpatient and either fax, call, or email the readings to the office next week for practitioner to review. The pt is to call for acute concerns. Chronic Pain Syndrome - pt has chronic pain - pt has uncontroled pain - I have recommend patient to start on oxycodone 15 mg - 1/2 to 1 pill every 8 hours prn for uncontrolled shoulder pain - rtc in one month for follow up on symptoms, has not sought out other medications, only uses PRN pain medications as directed, and understands the consequences of over-medication. 07/22/2017 Appointment: [facility] [phone] [facility] (15 min) Moderate 07/22/2017 Patient Education: Patient Medication Summary Completed 07/22/2017 Patient Education: Hypertension Completed 07/22/2017 Visit Plan: Hypertension - well controlled - continue with current medications, continue with no added salt diet. Pt has been encouraged to exercise daily. The pt has been advised to call the office if there are any acute concerns about change in blood pressure readings at home. Chronic Pain Syndrome - pt has chronic pain - has been maintained on current medications, has not sought out other medications, only uses PRN pain medications as directed , and understands the consequences of over-medication. Hyperlipidemia - pt has been counseled about appropriate diet, exercise, and need for low fat food choices. I have discussed the need for the patient to take medications as prescribed. If the patient has negative side effects from the medication, they are to CALL the office and not abruptly discontinue the medication without discussion with a practitioner in the office. We will check labs in 3-6 months for follow up on the patient's chronic medical problem and to assure normal liver response to medications. 03/30/2017 Appointment: [facility] [phone] [facility] (15 min) Moderate 03/30/2017 Patient Education: Patient Medication Summary Completed 03/30/2017 Patient Education: Hypertension Completed 03/30/2017 Visit Plan: Right arm pain, ongoing for about a month - he states that it is a similar feeling as to when he had shingles in the same location - no rash noted at this time - will send RX, pt is to notify clinic if symptoms do not improve and will refer to ortho if needed. 03/01/2017 Visit Plan: Right arm pain, ongoing for about a month - he states that it is a similar feeling as to when he had shingles in the same location - no rash noted at this time - will send RX, pt is to notify clinic if symptoms do not improve and will refer to ortho if needed. 03/01/2017 Appointment: Gabby Echevarria WPtel: [id number] (30 min) Complex 03/01/2017 Patient Education: Patient Medication Summary Completed 03/01/2017 Visit Plan: Insomnia - Pt has been advised to increase the light in the house during the day, and start dimming the lights during the evening hours. Pt has been advised to cut out caffeine after 5pm. Daytime napping worsens night time insomnia. 12/23/2016 Appointment: Gabby Echevarria WPtel[id number] ([facility] min) [facility] 12/23/2016 Patient Education: Patient Medication Summary Completed 12/23/2016 Visit Plan: Hypertension - well controlled - continue with current medications, continue with no added salt diet. Pt has been encouraged to exercise daily. The pt has been advised to call the office if there are any acute concerns about change in blood pressure readings at home. Hyperlipidemia - pt has been counseled about appropriate diet, exercise, and need for low fat food choices. I have discussed the need for the patient to take medications as prescribed. If the patient has negative side effects from the medication, they are to CALL the office and not abruptly discontinue the medication without discussion with a practitioner in the office. We will check labs in 3-6 months for follow up on the patient's chronic medical problem and to assure normal liver response to medications. Chronic pain - right knee -bilateral wrists - monitor symptoms. 09/29/2016 Appointment: Ramila Esposito WPtel[facility] (15 min) Moderate 09/29/2016 Patient Education: Patient Medication Summary Completed 09/29/2016 Patient Education: Hypertension Completed 09/29/2016 Appointment: [facility] [phone] [facility] (15 min) Moderate 06/30/2016 Visit Plan: Hypertension - well controlled - continue with current medications, continue with no added salt diet. Pt has been encouraged to exercise daily. The pt has been advised to call the office if there are any acute concerns about change in blood pressure readings at home. Hyperlipidemia - pt has been counseled about appropriate diet, exercise, and need for low fat food choices. I have discussed the need for the patient to take medications as prescribed. If the patient has negative side effects from the medication, they are to CALL the office and not abruptly discontinue the medication without discussion with a practitioner in the office. We will check labs in 3-6 months for follow up on the patient's chronic medical problem and to assure normal liver response to medications. Chronic pain - right knee - pain - discussed stretching exercises - pt to call if not improving. 06/02/2016 Appointment: [facility] [phone] [id number] (15 min) Moderate 06/02/2016 Patient Education: Patient Medication Summary Completed 06/02/2016 Patient Education: Smoking and Tobacco Addiction Completed 06/02/2016 Visit Plan: Hypertension - well controlled - continue with current medications, continue with no added salt diet. Pt has been encouraged to exercise daily. The pt has been advised to call the office if there are any acute concerns about change in blood pressure readings at home. Hyperlipidemia - pt has been counseled about appropriate diet, exercise, and need for low fat food choices. I have discussed the need for the patient to take medications as prescribed. If the patient has negative side effects from the medication, they are to CALL the office and not abruptly discontinue the medication without discussion with a practitioner in the office. We will check labs in 3-6 months for follow up on the patient's chronic medical problem and to assure normal liver response to medications. Prevnar 13 shot today Tobacco abuse - chronic condition for this patient. Patient has been counseled about need to stop smoking due to the negative health affects. Pt has vocalized understanding and states that they will consider smoking cessation and he wants to start on chantix today. 12/03/2015 Appointment: [facility] [phone] [id number] (30 min) Complex 12/03/2015 Patient Education: Patient Medication Summary Completed 12/03/2015 Patient Education: Hypertension Completed 12/03/2015 Patient Education: Smoking and Tobacco Addiction Completed 12/03/2015 Appointment: Injection 08/30/2015 Patient Education: Patient Medication Summary Completed 08/30/2015 Visit Plan: Hypertension - well controlled - continue with current medications, continue with no added salt diet. Pt has been encouraged to exercise daily. The pt has been advised to call the office if there are any acute concerns about change in blood pressure readings at home. Chronic Pain Syndrome - pt has chronic pain - has been maintained on current medications, has not sought out other medications, only uses PRN pain medications as directed , and understands the consequences of over-medication. Tobaccoism - pt not interested in stopping smoking - but pt has been recommended as follows: recommendation for consideration of smoking cessation- cut back on tobacco intake by 1 cigarette a day for a week, then every week decrease smoking by 1 more cigarette until you are finished with smoking, realizing that this will take several months, but in a year, your habits and smoking should have changed such that it will be easier to modify your habits. Cerumen impaction - use sweet oil, or olive oil, or debrox ear wax drops to the plugged ear nightly until hearing improves or until next office visit. 06/04/2015 Patient Education: Patient Medication Summary Completed 06/04/2015 Patient Education: Hypertension Completed 06/04/2015 Patient Education: Smoking and Tobacco Addiction Completed 06/04/2015 Appointment: (30 min) Complex 03/15/2015 Visit Plan: Right knee pain- Written prescription for Hydrocodone/Apap refill provided. Pt considering being re-evaluated by Dr. Thomas in [place] for surgery. Encouraged to make appointment. Call or return to office if further complaints. 03/06/2015 Appointment: [facility] [phone] [id number] [place] ([place] New Patient 03/06/2015 Patient Education: Patient Medication Summary Completed 03/06/2015 Referral: Dino Langford Referral Appointment Requested Instructions Comment . Insomnia - Pt has been advised to increase the light in the house during the day, and start dimming the lights during the evening hours. Pt has been advised to cut out caffeine after 5pm. Daytime napping worsens night time insomnia. . Hypertension - well controlled - continue with current medications, continue with no added salt diet. Pt has been encouraged to exercise daily. The pt has been advised to call the office if there are any acute concerns about change in blood pressure readings at home. Left thigh pain - vastus lateralis injection 40mg kenalog into trigger point. . Hypertension - well controlled - continue with current medications, continue with no added salt diet. Pt has been encouraged to exercise daily. The pt has been advised to call the office if there are any acute concerns about change in blood pressure readings at home. Hyperlipidemia - pt has been counseled about appropriate diet, exercise, and need for low fat food choices. I have discussed the need for the patient to take medications as prescribed. If the patient has negative side effects from the medication, they are to CALL the office and not abruptly discontinue the medication without discussion with a practitioner in the office. We will check labs in 3-6 months for follow up on the patient's chronic medical problem and to assure normal liver response to medications. Chronic pain - right knee -bilateral wrists - monitor symptoms. . Hypertension - well controlled - continue with current medications, continue with no added salt diet. Pt has been encouraged to exercise daily. The pt has been advised to call the office if there are any acute concerns about change in blood pressure readings at home. Chronic pain syndrome - continue with current regimen . Hypertension - uncontrolled - the patient's medications have been modified as documented in the visit note. The patient has been counseled to cut back on salt in diet for a no added salt diet, low fat diet, start an exercise program with low weight bearing exercises and higher aerobic activity for heart health. The patient is to check blood pressure readings as an outpatient and either fax , call, or email the readings to the office next week for practitioner to review. The pt is to call for acute concerns. Chronic Pain Syndrome - pt has chronic pain - pt has uncontroled pain - I have recommend patient to start on oxycodone 15 mg - 1/2 to 1 pill every 8 hours prn for uncontrolled shoulder pain - rtc in one month for follow up on symptoms , has not sought out other medications, only uses PRN pain medications as directed, and understands the consequences of over-medication. . Hypertension - well controlled - continue with current medications, continue with no added salt diet. Pt has been encouraged to exercise daily. The pt has been advised to call the office if there are any acute concerns about change in blood pressure readings at home. Chronic Pain Syndrome - pt has chronic pain - has been maintained on current medications, has not sought out other medications, only uses PRN pain medications as directed, and understands the consequences of over-medication. Hyperlipidemia - pt has been counseled about appropriate diet, exercise, and need for low fat food choices. I have discussed the need for the patient to take medications as prescribed. If the patient has negative side effects from the medication, they are to CALL the office and not abruptly discontinue the medication without discussion with a practitioner in the office. We will check labs in 3-6 months for follow up on the patient's chronic medical problem and to assure normal liver response to medications. . Hypertension - well controlled - continue with current medications, continue with no added salt diet. Pt has been encouraged to exercise daily. The pt has been advised to call the office if there are any acute concerns about change in blood pressure readings at home. Hyperlipidemia - pt has been counseled about appropriate diet, exercise, and need for low fat food choices. I have discussed the need for the patient to take medications as prescribed. If the patient has negative side effects from the medication, they are to CALL the office and not abruptly discontinue the medication without discussion with a practitioner in the office. We will check labs in 3-6 months for follow up on the patient's chronic medical problem and to assure normal liver response to medications. Chronic pain - right knee - pain - discussed stretching exercises - pt to call if not improving. ibuprofen 600mg three times a day as needed if the gabapentin - is working well at night and not making you too sleepy we can change it to twice a day - if symptoms persist then we will refer to ortho - . Right arm pain, ongoing for about a month - he states that it is a similar feeling as to when he had shingles in the same location - no rash noted at this time - will send RX, pt is to notify clinic if symptoms do not improve and will refer to ortho if needed. ibuprofen 600mg three times a day as needed if the gabapentin - is working well at night and not making you too sleepy we can change it to twice a day - if symptoms persist then we will refer to ortho - . Right arm pain, ongoing for about a month - he states that it is a similar feeling as to when he had shingles in the same location - no rash noted at this time - will send RX, pt is to notify clinic if symptoms do not improve and will refer to ortho if needed. . Right knee pain- Written prescription for Hydrocodone/ Apap refill provided. Pt considering being re-evaluated by Dr. Thomas in [place] for surgery. Encouraged to make appointment. Call or return to office if further complaints. fasting labs to be done in [address] esposito's office will set you up with abdominal ultrasound for abdominal aneurysm evaluation recommendation for consideration of smoking cessation- cut back on tobacco intake by 1 cigarette a day for a week, then every week decrease smoking by 1 more cigarette until you are finished with smoking, realizing that this will take several months, but in a year, your habits and smoking should have changed such that it will be easier to modify your habits. use sweet oil, or olive oil, or debrox ear wax drops to the plugged ear nightly until hearing improves or until next office visit. . Hypertension - well controlled - continue with current medications, continue with no added salt diet. Pt has been encouraged to exercise daily. The pt has been advised to call the office if there are any acute concerns about change in blood pressure readings at home. Chronic Pain Syndrome - pt has chronic pain - has been maintained on current medications, has not sought out other medications, only uses PRN pain medications as directed, and understands the consequences of over-medication. Tobaccoism - pt not interested in stopping smoking - but pt has been recommended as follows: recommendation for consideration of smoking cessation- cut back on tobacco intake by 1 cigarette a day for a week, then every week decrease smoking by 1 more cigarette until you are finished with smoking, realizing that this will take several months, but in a year, your habits and smoking should have changed such that it will be easier to modify your habits. Cerumen impaction - use sweet oil, or olive oil, or debrox ear wax drops to the plugged ear nightly until hearing improves or until next office visit. . Hypertension - well controlled - continue with current medications, continue with no added salt diet. Pt has been encouraged to exercise daily. The pt has been advised to call the office if there are any acute concerns about change in blood pressure readings at home. Referral to Dr. Langford for right hand large cyst - needs removal - painful. Chronic Pain Syndrome - pt has chronic pain - has been maintained on current medications, has not sought out other medications, only uses PRN pain medications as directed, and understands the consequences of over-medication. . Hypertension - well controlled - continue with current medications, continue with no added salt diet. Pt has been encouraged to exercise daily. The pt has been advised to call the office if there are any acute concerns about change in blood pressure readings at home. Hyperlipidemia - pt has been counseled about appropriate diet, exercise, and need for low fat food choices. I have discussed the need for the patient to take medications as prescribed. If the patient has negative side effects from the medication, they are to CALL the office and not abruptly discontinue the medication without discussion with a practitioner in the office. We will check labs in 3-6 months for follow up on the patient's chronic medical problem and to assure normal liver response to medications. Prevnar 13 shot today Tobacco abuse - chronic condition for this patient. Patient has been counseled about need to stop smoking due to the negative health affects. Pt has vocalized understanding and states that they will consider smoking cessation and he wants to start on chantix today.
--- OUTSIDE RECORDS SUMMARY | 2018-01-16 08:38 | XMS REPORT | CCD ---
Author Author Lida Sanchez Organization [facility] Address [address] [place] [address] Phone Care Team Providers Care Heavy Media Operator Name Role Phone PP Unavailable CCM Unavailable Summary Purpose Interface Exchange Insurance Providers Payer name Policy type / Coverage type Covered alliance party ID Effective Begin Date Effective End Date WPS Medicare Part B [id number] 2015 Unknown [facility] [id number] Unknown Family history Father Diagnosis Age At Onset Heart Attack Unknown Mother Diagnosis Age At Onset Stroke Unknown Social History Social History Element Codes Description Effective Dates Tobacco history SNOMED CT: 0828990 Former smoker 09/29/2016 Marital status Unknown [employer] 06/02/2016 Number of children Unknown 0 06/02/2016 Number of cigarettes/day Unknown 10 ( Half a pack) 06/02/2016 Frequency of drinks SNOMED CT: 147626366 1-4 drinks per week 03/07/2015 Living arrangements Unknown House 03/06/2015 Employment Unknown Retired 03/06/2015 Number of years using tobacco Unknown 40 - 50 03/06/2015 Allergies, Adverse Reactions, Alerts Allergies, Adverse Reactions, Alerts data not found Past Medical History Illness Codes Condition Status Onset Date Resolved Date Essential (primary) hypertension ICD-9: 401.9 ICD-10: I10 Active 06/03/2015 Unknown Pain in left thigh ICD -9: 729.5 ICD-10: M79.652 Active 09/23/2017 Unknown Other chronic pain ICD -9: 338.29 ICD-10: G89.29 Active 06/03/2015 Unknown Pain in right shoulder ICD-9: 719.41 ICD-10: M25.511 Active 03/30/2017 Unknown Mixed hyperlipidemia ICD-9: 272.4 ICD-10: E78.2 Active 06/03/2015 Unknown Pain in right arm ICD- 9: 729.5 ICD-10: M79.601 Active 03/01/2017 Unknown Other insomnia ICD-9: 327.09 ICD-10: G47.09 Active 12/23/2016 Unknown Pain in left wrist ICD -9: 719.43 ICD-10: M25.532 Active 09/29/2016 Unknown Pain in right knee ICD -9: 719.46 ICD-10: M25.561 Active 03/05/2015 Unknown Pain in right wrist ICD-9: 719.43 ICD-10: M25.531 Active 09/29/2016 Unknown Encounter for immunization ICD-9: V03.9 ICD-10: [...] Problems Condition Codes Effective Dates Condition Status Essential (primary) hypertension ICD-9: 401.9 ICD-10: I10 06/03/2015 Active Pain in left thigh ICD -9: 729.5 ICD-10: M79.652 09/23/2017 Active Other chronic pain ICD -9: 338.29 ICD-10: G89.29 06/03/2015 Active Pain in right shoulder ICD-9: 719.41 ICD-10: M25.511 03/30/2017 Active Mixed hyperlipidemia ICD-9: 272.4 ICD-10: E78.2 06/03/2015 Active Pain in right arm ICD- 9: 729.5 ICD-10: M79.601 03/01/2017 Active Other insomnia ICD-9: 327.09 ICD-10: G47.09 12/23/2016 Active Pain in left wrist ICD -9: 719.43 ICD-10: M25.532 09/29/2016 Active Pain in right knee ICD -9: 719.46 ICD-10: M25.561 03/05/2015 Active Pain in right wrist ICD-9: 719.43 ICD-10: M25.531 09/29/2016 Active Encounter for immunization ICD-9: V03.9 ICD-10: [...] Start Date Stop Date Status Fill Instructions oxycodone 15 mg tablet RxNorm: 3630432 1/2 - 1 Tablet(s) PO TID right shoulder pain 11/08/2017 12/07/2017 Active Kenalog 40 mg/mL suspension for injection RxNorm: 9861451 1 Milliliter(s) Inj daily 09/23/2017 09/23/2017 Inactive metoprolol succinate ER 25 mg tablet,extended release 24 hr RxNorm: 107749 1.5 Tablet(s) PO daily 09/20/2017 09/14/2018 Active oxycodone 15 mg tablet RxNorm: 8364018 1/2 - 1 Tablet(s) PO TID right shoulder pain 09/07/2017 10/06/2017 Inactive oxycodone 15 mg tablet RxNorm: 3902808 1/2 - 1 Tablet(s) PO TID right shoulder pain 08/16/2017 09/06/2017 Inactive oxycodone 15 mg tablet RxNorm: 8452308 1/2 - 1 Tablet(s) PO TID right shoulder pain 07/22/2017 08/15/2017 Inactive diclofenac 1 % topical gel RxNorm: 930076 2 Gram(s) TOP QID to right shoulder 07/22/2017 09/19/2017 Inactive metoprolol succinate ER 25 mg tablet,extended release 24 hr RxNorm: 272042 1.5 Tablet(s) PO daily 07/22/2017 09/19/2017 Inactive hydrocodone 10 mg-acetaminophen 325 mg tablet RxNorm: 221969 1-2 Tablet(s) PO Q8 as needed 07/01/2017 08/15/2017 Inactive hydrocodone 10 mg-acetaminophen 325 mg tablet RxNorm: 109004 1-2 Tablet(s) PO Q8 as needed 06/03/2017 06/30/2017 Inactive Xanax 0.25 mg tablet RxNorm: 245650 1/2 - 1 Tablet(s) PO QHS as needed insomnia 05/06/2017 07/04/2017 Inactive hydrocodone 10 mg-acetaminophen 325 mg tablet RxNorm: 233516 1-2 Tablet(s) PO Q8 as needed 05/06/2017 06/02/2017 Inactive hydrocodone 10 mg-acetaminophen 325 mg tablet RxNorm: 065728 1-2 Tablet(s) PO Q8 as needed 03/23/2017 04/21/2017 Inactive acyclovir 800 mg tablet RxNorm: 605709 1 Tablet(s) PO QID 03/0803/07/2017 Inactive acyclovir 800 mg tablet RxNorm: 671030 1 Tablet(s) PO QID 03/0803/14/2017 Inactive gabapentin 300 mg capsule RxNorm: 553215 1 Capsule(s) PO BID 03/25/2017 Inactive gabapentin 300 mg capsule RxNorm: 995954 1 Capsule(s) PO BID 03/04/2017 Inactive gabapentin 100 mg capsule RxNorm: 374883 1 Capsule(s) PO QHS 03/25/2017 Inactive Xanax 0.25 mg tablet RxNorm: 196578 1/2 - 1 Tablet(s) PO QHS as needed insomnia 02/22/2017 03/23/2017 Inactive hydrocodone 10 mg-acetaminophen 325 mg tablet RxNorm: 076710 1-2 Tablet(s) PO Q8 as needed 02/22/2017 03/22/2017 Inactive hydrocodone 10 mg-acetaminophen 325 mg tablet RxNorm: 741596 1-2 Tablet(s) PO Q8 as needed 01/25/2017 02/21/2017 Inactive desoximetasone 0.25 % topical cream RxNorm: 700057 1 Application TOP BID 01/22/2017 No Stop Date Active desoximetasone 0.25 % topical cream RxNorm: 370205 1 Application TOP BID 12/23/2016 01/21/2017 Inactive hydrocodone 10 mg-acetaminophen 325 mg tablet RxNorm: 570499 1-2 Tablet(s) PO Q8 as needed 12/23/2016 01/21/2017 Inactive Xanax 0.25 mg tablet RxNorm: 543599 1/2 - 1 Tablet(s) PO QHS as needed insomnia 12/23/2016 01/21/2017 Inactive hydrocodone 10 mg-acetaminophen 325 mg tablet RxNorm: 918997 1-2 Tablet(s) PO Q8 as needed 11/30/2016 12/22/2016 Inactive hydrocodone 10 mg-acetaminophen 325 mg tablet RxNorm: 049129 1-2 Tablet(s) PO Q8 as needed 10/29/2016 11/27/2016 Inactive hydrocodone 10 mg-acetaminophen 325 mg tablet RxNorm: 388547 1-2 Tablet(s) PO Q8 as needed 09/07/2016 10/06/2016 Inactive hydrocodone 10 mg-acetaminophen 325 mg tablet RxNorm: 145956 1-2 Tablet(s) PO Q8 as needed 08/10/2016 09/06/2016 Inactive hydrocodone 10 mg-acetaminophen 325 mg tablet RxNorm: 522275 1-2 Tablet(s) PO Q8 as needed 07/14/2016 08/09/2016 Inactive morphine ER 15 mg tablet,extended release RxNorm: 202805 1 Tablet(s) PO BID 06/02/2016 07/01/2016 Inactive hydrocodone 10 mg-acetaminophen 325 mg tablet RxNorm: 210578 1-2 Tablet(s) PO Q8 as needed 05/18/2016 06/16/2016 Inactive hydrocodone 10 mg-acetaminophen 325 mg tablet RxNorm: 672499 1-2 Tablet(s) PO Q8 as needed 04/21/2016 05/17/2016 Inactive Chantix 1 mg tablet RxNorm: 954625 1 Tablet(s) PO BID 201506/01/2016 Inactive hydrocodone 10 mg-acetaminophen 325 mg tablet RxNorm: 165514 1-2 Tablet(s) PO Q8 as needed 03/23/2016 04/20/2016 Inactive hydrocodone 10 mg-acetaminophen 325 mg tablet RxNorm: 903350 1-2 Tablet(s) PO Q8 as needed 02/25/2016 03/22/2016 Inactive hydrocodone 10 mg-acetaminophen 325 mg tablet RxNorm: 909795 1-2 Tablet(s) PO Q8 as needed 01/27/2016 02/24/2016 Inactive Chantix 1 mg tablet RxNorm: 839006 1 Tablet(s) PO BID 201504/20/2016 Inactive hydrocodone 10 mg-acetaminophen 325 mg tablet RxNorm: 607332 1-2 Tablet(s) PO Q6 as needed 12/19/2015 01/17/2016 Inactive lisinopril 10 mg tablet RxNorm: 915134 1 Tablet(s) PO daily 10/201509/28/2016 Inactive lovastatin 20 mg tablet RxNorm: 136806 1 Tablet(s) PO daily 10/201509/28/2016 Inactive Chantix Starting Month Box 0.5 mg (11)-1 mg (42) tablets in dose pack RxNorm: 911242 1 Tablet(s) PO UD as directed in the starter pack 201501/01/2016 Inactive hydrocodone 10 mg-acetaminophen 325 mg tablet RxNorm: 862153 1-2 Tablet(s) PO Q6 as needed 11/21/2015 12/18/2015 Inactive hydrocodone 10 mg-acetaminophen 325 mg tablet RxNorm: 827721 1-2 Tablet(s) PO Q6 as needed 10/24/2015 11/20/2015 Inactive hydrocodone 10 mg-acetaminophen 325 mg tablet RxNorm: 132176 1-2 Tablet(s) PO Q6 as needed 08/23/2015 09/21/2015 Inactive hydrocodone 10 mg-acetaminophen 325 mg tablet RxNorm: 314229 1-2 Tablet(s) PO Q6 as needed 07/26/2015 08/22/2015 Inactive hydrocodone 10 mg-acetaminophen 325 mg tablet RxNorm: 555908 1-2 Tablet(s) PO Q6 as needed 06/27/2015 07/25/2015 Inactive lovastatin 20 mg tablet RxNorm: 895466 1 Tablet(s) PO daily 12/16/2015 Inactive hydrocodone 10 mg-acetaminophen 325 mg tablet RxNorm: 592113 1-2 Tablet(s) PO Q6 as needed 05/30/2015 06/26/2015 Inactive lisinopril 10 mg tablet RxNorm: 494095 1 Tablet(s) PO daily 12/16/2015 Inactive lovastatin 10 mg tablet RxNorm: 608165 1 Tablet(s) PO daily 06/12/2015 Inactive hydrocodone 10 mg-acetaminophen 325 mg tablet RxNorm: 825166 1-2 Tablet(s) PO Q6 as needed 05/02/2015 05/29/2015 Inactive hydrocodone 10 mg-acetaminophen 325 mg tablet RxNorm: 303995 1-2 Tablet(s) PO Q6 as needed 04/04/2015 05/01/2015 Inactive hydrocodone 10 mg-acetaminophen 325 mg tablet RxNorm: 282379 1-2 Tablet(s) PO Q6 as needed 03/04/2015 04/02/2015 Inactive atorvastatin 40 mg tablet RxNorm: 919500 1 Tablet(s) PO daily No Start Date Active aspirin 81 mg tablet,delayed release RxNorm: 217900 1 Tablet(s) PO daily No Start Date Active Mobic 15 mg tablet RxNorm: 599175 Tablet(s) PO No Start Date 12/02/2015 Inactive lisinopril 10 mg tablet RxNorm: 669041 1 Tablet(s) PO daily No Start Date 05/29/2015 Inactive metoprolol succinate ER 25 mg tablet,extended release 24 hr RxNorm: 105870 1 Tablet(s) PO daily No Start Date 2016 Inactive lovastatin 10 mg tablet RxNorm: 703176 Tablet(s) PO No Start Date 05/29/2015 Inactive Medication Administered Medication Codes Instructions Start Date Status Kenalog 40 mg/mL suspension for injection RxNorm: 2695730 1Milliliterdaily 09/23/2017 No longer Active Immunizations Vaccine Codes Date Status Pneumococcal (Adult) CVX: 133 12/03/2015 completed Influenza CVX: 141 08/30/2015 completed Influenza CVX: 141 08/06/2014 completed Pneumococcal (Adult) CVX: 33 07/18/2013 completed Tetanus, Diptheria, Pertussis CVX: 113 completed Tetanus/Diptheria CVX: 113 10/17/2011 completed Assessments Condition Codes Effective Dates Essential (primary) hypertension ICD-10: I10 ICD-9: 401.9 09/23/2017 Pain in left thigh ICD-10: M79.652 ICD-9: 729.5 09/23/2017 Other chronic pain ICD-10: G89.29 ICD-9: 338.29 08/26/2017 Pain in right shoulder ICD-10: M25.511 ICD-9: 719.41 07/22/2017 Mixed hyperlipidemia ICD-10: E78.2 ICD-9: 272.4 03/30/2017 Pain in right arm ICD-10: M79.601 ICD-9: 729.5 03/01/2017 Other insomnia ICD-10: G47.09 ICD-9: 327.09 12/23/2016 Pain in right wrist ICD-10: M25.531 ICD-9: 719.43 09/29/2016 Pain in left wrist ICD-10: M25.532 ICD-9: 719.43 09/29/2016 Pain in right knee ICD-10: M25.561 ICD-9: 719.46 09/29/2016 Encounter for immunization ICD-10: Z23 ICD-9: V03.9 12/03/2015 Tobacco use ICD-10: Z72.0 ICD-9: 305.1 12/03/2015 Encounter for immunization ICD-10: Z23 ICD-9: V04.81 08/30/2015 Chronic pain ICD-9: 338.29 06/04/2015 HYPERLIPIDEMIA ICD-9: 272.4 06/04/2015 ESSENTIAL HYPERTENSION ICD-9: 401.9 06/04 TOBACCO USE DISORDER ICD-9: 305.1 2014 Right knee pain ICD-9: 719.46 03/06/2015 Reason For Visit Reason For Visit Effective Dates Notes hypertension 09/23/2017 shoulder pain 08/26/2017 arm shoulder pain 07/22/2017 arm hypertension 03/30/2017 shoulder pain 03/01/2017 arm insomnia 12/23/2016 hypertension 09/29/2016 hypertension 06/02/2016 hypertension 12/03/2015 vaccination against influenza 08/30/2015 knee pain 06/04/2015 knee pain 03/06/2015 Results Observation Observation Code Item Item Code Result Date Lipid Ord30 CHOL 133 mg/dL 07/29/2016 Lipid Ord30 HDL 41.0 mg/dl 07/29/2016 Lipid Ord30 TRIG 67 mg/dL 07/29/2016 Lipid Ord30 LDL 79 mg/dL 07/29/2016 Lipid Ord30 C/HDL 3.2 Ratio 07/29/2016 Magnesium Ord90 Mag 2.1 mg/dL 07/29/2016 Comp Metabolic Dsf892 NA 138 mEq/L 07/29/2016 Comp Metabolic Gxo776 K 4.4 mEq/L 07/29/2016 Comp Metabolic Now358 CL 106 mEq/L 07/29/2016 Comp Metabolic Fsm415 CO2 25.0 mEq/L 07/29/2016 Comp Metabolic Ner643 ANION GAP 11 07/29/2016 Comp Metabolic Clb926 GLUCOSE 105 mg/dL 07/29/2016 Comp Metabolic Dse415 Creat 0.7 mg/dL 07/29/2016 Comp Metabolic Sdx780 eGFR 127 ml/min/1.73m2 07/29/2016 Comp Metabolic Iwd117 BUN 13 mg/dL 07/29/2016 Comp Metabolic Qes868 B/C Ratio 19.7 Ratio 07/29/2016 Comp Metabolic Xvn460 CALCIUM 9.0 mg/dL 07/29/2016 Comp Metabolic Cgv682 ALK PHOS 81 U/L 07/29/2016 Comp Metabolic Dpo525 AST(SGOT) 16 U/L 07/29/2016 Comp Metabolic Qzf932 ALT(SGPT) 15 U/L 07/29/2016 Comp Metabolic Zsu937 BILI T 0.5 mg/dL 07/29/2016 Comp Metabolic Hfb567 ALBUMIN 4.4 g/dL 07/29/2016 Comp Metabolic Mbq882 TPRO 6.6 g/dL 07/29/2016 Comp Metabolic Oze435 GLOB 2.2 g/dL 07/29/2016 Comp Metabolic Ibj364 A/G Ratio 2.0 Ratio 07/29/2016 Comp Metabolic Eau112 Osmo 276 mOsmo 07/29/2016 Comp Metabolic Nwc604 NA 134 mEq/L 06/02/2016 Comp Metabolic Zqd904 K 4.5 mEq/L 06/02/2016 Comp Metabolic Aco479 CL 100 mEq/L 06/02/2016 Comp Metabolic Dmx197 CO2 28.0 mEq/L 06/02/2016 Comp Metabolic Tfp362 ANION GAP 11 06/02/2016 Comp Metabolic Hlj079 GLUCOSE 96 mg/dL 06/02/2016 Comp Metabolic Rdr455 Creat 0.7 mg/dL 06/02/2016 Comp Metabolic Vhj402 eGFR 123 ml/min/1.73m2 06/02/2016 Comp Metabolic Ejh390 BUN 17 mg/dL 06/02/2016 Comp Metabolic Bfh682 B/C Ratio 25.0 Ratio 06/02/2016 Comp Metabolic Foj811 CALCIUM 9.4 mg/dL 06/02/2016 Comp Metabolic Ydy227 ALK PHOS 57 U/L 06/02/2016 Comp Metabolic Fuv812 AST(SGOT) 17 U/L 06/02/2016 Comp Metabolic Heh365 ALT(SGPT) 19 U/L 06/02/2016 Comp Metabolic Hju964 BILI T 0.6 mg/dL 06/02/2016 Comp Metabolic Rmv413 ALBUMIN 4.6 g/dL 06/02/2016 Comp Metabolic Rop784 TPRO 6.9 g/dL 06/02/2016 Comp Metabolic Ugn252 GLOB 2.3 g/dL 06/02/2016 Comp Metabolic Nfg529 A/G Ratio 2.0 Ratio 06/02/2016 Comp Metabolic Ohx730 Osmo 270 mOsmo 06/02/2016 Cbc With Differential Ord2 WBC 6.34 K/ul 06/02/2016 Cbc With Differential Ord2 RBC 4.55 M/ul 06/02/2016 Cbc With Differential Ord2 HGB 16.0 g/dl 06/02/2016 Cbc With Differential Ord2 HCT 47.5 % 06/02/2016 Cbc With Differential Ord2 Neut% 58.0 % 06/02/2016 Cbc With Differential Ord2 Lymph% 28.2 % 06/02/2016 Cbc With Differential Ord2 MCV 104.4 fl 06/02/2016 Cbc With Differential Ord2 Levy% 10.9 % 06/02/2016 Cbc With Differential Ord2 MCH 35.2 pg 06/02/2016 Cbc With Differential Ord2 Eos% 2.4 % 06/02/2016 Cbc With Differential Ord2 MCHC 33.7 pg 06/02/2016 Cbc With Differential Ord2 PLT 205 K/ul 06/02/2016 Cbc With Differential Ord2 Baso% 0.5 % 06/02/2016 Cbc With Differential Ord2 RDW 12.9 % 06/02/2016 Cbc With Differential Ord2 Neut ABS# 3.68 K/ul 06/02/2016 Cbc With Differential Ord2 Lymph ABS# 1.79 K/ul 06/02/2016 Cbc With Differential Ord2 Levy ABS# 0.7 K/ul 06/02/2016 Cbc With Differential Ord2 Eos ABS# 0.2 K/ul 06/02/2016 Cbc With Differential Ord2 Baso ABS# 0.0 K/ul 06/02/2016 Lipid Ord30 CHOL 185 mg/dL 06/02/2016 Lipid Ord30 HDL 35.0 mg/dl 06/02/2016 Lipid Ord30 TRIG 105 mg/dL 06/02/2016 Lipid Ord30 LDL 129 mg/dL 06/02/2016 Lipid Ord30 C/HDL 5.3 Ratio 06/02/2016 Tsh Ord6 hTSH II 1.51 uIU/mL 06/02/2016 Cbc With Differential Ord2 WBC 7.10 K/ul 03/09/2016 Cbc With Differential Ord2 RBC 4.31 M/ul 03/09/2016 Cbc With Differential Ord2 HGB 14.9 g/dl 03/09/2016 Cbc With Differential Ord2 HCT 45.0 % 03/09/2016 Cbc With Differential Ord2 Neut% 58.8 % 03/09/2016 Cbc With Differential Ord2 MCV 104.4 fl 03/09/2016 Cbc With Differential Ord2 Lymph% 26.6 % 03/09/2016 Cbc With Differential Ord2 Levy% 11.1 % 03/09/2016 Cbc With Differential Ord2 MCH 34.6 pg 03/09/2016 Cbc With Differential Ord2 Eos% 3.1 % 03/09/2016 Cbc With Differential Ord2 MCHC 33.1 pg 03/09/2016 Cbc With Differential Ord2 PLT 191 K/ul 03/09/2016 Cbc With Differential Ord2 Baso% 0.4 % 03/09/2016 Cbc With Differential Ord2 Neut ABS# 4.17 K/ul 03/09/2016 Cbc With Differential Ord2 RDW 12.7 % 03/09/2016 Cbc With Differential Ord2 Lymph ABS# 1.89 K/ul 03/09/2016 Cbc With Differential Ord2 Levy ABS# 0.8 K/ul 03/09/2016 Cbc With Differential Ord2 Eos ABS# 0.2 K/ul 03/09/2016 Cbc With Differential Ord2 Baso ABS# 0.0 K/ul 03/09/2016 Cbc With Differential Ord2 New Analyzer Notice Please note new ref ranges starting 10-30-2015 due to implemntation of new five part differential hematolgy analyzer. 03/09/2016 Tsh Ord6 hTSH II 1.19 uIU/mL 12/03/2015 Total Psa Ord10 PSA 0.70 ng/mL 12/03/2015 Comp Metabolic Elb282 NA 135 mEq/L 12/03/2015 Comp Metabolic Pee726 K 4.1 mEq/L 12/03/2015 Comp Metabolic Syt139 CL 100 mEq/L 12/03/2015 Comp Metabolic Vty261 CO2 28.0 mEq/L 12/03/2015 Comp Metabolic Qxa043 ANION GAP 11 12/03/2015 Comp Metabolic Rpy474 GLUCOSE 111 mg/dL 12/03/2015 Comp Metabolic Reb128 Creat 0.8 mg/dL 12/03/2015 Comp Metabolic Avy114 eGFR 108 ml/min/1.73m2 12/03/2015 Comp Metabolic Cfv318 BUN 15 mg/dL 12/03/2015 Comp Metabolic Too467 B/C Ratio 19.7 Ratio 12/03/2015 Comp Metabolic Zfd240 CALCIUM 9.2 mg/dL 12/03/2015 Comp Metabolic Udm706 ALK PHOS 61 U/L 12/03/2015 Comp Metabolic Ypc057 AST(SGOT) 18 U/L 12/03/2015 Comp Metabolic Hip109 ALT(SGPT) 19 U/L 12/03/2015 Comp Metabolic Qeg869 BILI T 0.6 mg/dL 12/03/2015 Comp Metabolic Fnu432 ALBUMIN 4.5 g/dL 12/03/2015 Comp Metabolic Llq966 TPRO 6.8 g/dL 12/03/2015 Comp Metabolic Ehw389 GLOB 2.3 g/dL 12/03/2015 Comp Metabolic Oev152 A/G Ratio 2.0 Ratio 12/03/2015 Comp Metabolic Mfq498 Osmo 272 mOsmo 12/03/2015 Cbc With Differential Ord2 WBC 11.90 K/ul 12/03/2015 Cbc With Differential Ord2 RBC 4.35 M/ul 12/03/2015 Cbc With Differential Ord2 HGB 15.2 g/dl 12/03/2015 Cbc With Differential Ord2 HCT 45.7 % 12/03/2015 Cbc With Differential Ord2 Neut% 72.0 % 12/03/2015 Cbc With Differential Ord2 MCV 105.1 fl 12/03/2015 Cbc With Differential Ord2 Lymph% 18.2 % 12/03/2015 Cbc With Differential Ord2 Levy% 8.7 % 12/03/2015 Cbc With Differential Ord2 [...] 2.16 K/ul 12/03/2015 Cbc With Differential Ord2 Levy ABS# 1.0 K/ul 12/03/2015 Cbc With Differential Ord2 Eos ABS# 0.1 K/ul 12/03/2015 Cbc With Differential Ord2 Baso ABS# 0.0 K/ul 12/03/2015 Cbc With Differential Ord2 New Analyzer Notice Please note new ref ranges starting 10-30-2015 due to implemntation of new five part differential hematolgy analyzer. 12/03/2015 Lipid Ord30 CHOL 188 mg/dL 12/03/2015 Lipid Ord30 HDL 43.0 mg/dl 12/03/2015 Lipid Ord30 TRIG 117 mg/dL 12/03/2015 Lipid Ord30 LDL 122 mg/dL 12/03/2015 Lipid Ord30 C/HDL 4.4 Ratio 12/03/2015 Cbc With Differential Ord2 WBC 7.8 [...] Ord2 RDW 12.6 % 06/07/2015 Comp Metabolic Sma641 NA 133 mEq/L 06/07/2015 Comp Metabolic Qft556 K 4.4 mEq/L 06/07/2015 Comp Metabolic Drw725 CL 102 mEq/L 06/07/2015 Comp Metabolic Uqw979 CO2 26.0 mEq/L 06/07/2015 Comp Metabolic Wfn323 ANION GAP 9 06/07/2015 Comp Metabolic Jtq554 GLUCOSE 108 mg/dL 06/07/2015 Comp Metabolic Qdx033 Creat 0.7 mg/dL 06/07/2015 Comp Metabolic Rfh192 eGFR 121 ml/min/1.73m2 06/07/2015 Comp Metabolic Qae452 BUN 15 mg/dL 06/07/2015 Comp Metabolic Eue295 B/C Ratio 21.7 Ratio 06/07/2015 Comp Metabolic Fzd183 CALCIUM 9.1 mg/dL 06/07/2015 Comp Metabolic Fhi924 ALK PHOS 55 U/L 06/07/2015 Comp Metabolic Tij966 AST(SGOT) 17 U/L 06/07/2015 Comp Metabolic Mvn731 ALT(SGPT) 18 U/L 06/07/2015 Comp Metabolic Poi565 BILI T 0.5 mg/dL 06/07/2015 Comp Metabolic Lhg540 ALBUMIN 4.3 g/dL 06/07/2015 Comp Metabolic Ekb539 TPRO 6.5 g/dL 06/07/2015 Comp Metabolic Olx908 GLOB 2.2 g/dL 06/07/2015 Comp Metabolic Rts591 A/G Ratio 2.0 Ratio 06/07/2015 Comp Metabolic Ojx320 Osmo 268 mOsmo 06/07/2015 Tsh Ord6 hTSH II 1.75 uIU/mL 06/07/2015 Lipid Ord30 CHOL 179 mg/dL 06/07/2015 Lipid Ord30 HDL 35.0 mg/dl 06/07/2015 Lipid Ord30 TRIG 153 mg/dL 06/07/2015 Lipid Ord30 LDL 113 mg/dL 06/07/2015 Lipid Ord30 C/HDL 5.1 Ratio 06/07/2015 Review of Systems System Result Effective Dates Constitutional No recent illness 2016 Constitutional No [...] Date INJ TRIGGER POINT 10/19 MUSCL CPT-4: 20072 09/23/2017 TRIAMCINOLONE ACET INJ NOS CPT-4: J3301 09/23/2017 APPENDECTOMY CPT-4: 43514 01/16/2017 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6 Code: 14799-0 Heart Rate 1: 72 bpm Height: 5'8" SpO2: 95% Weight: 181 lbs 8 oz 07/22/2017 Blood Pressure 1: 156/80 Code : 8480-6 BMI: 28.0 Code : 64895-7 Heart Rate 1 : 69 bpm Height: 5'8" SpO2: 95% Weight: 184 lbs 03/30/2017 Blood Pressure 1: 140/80 Code : 8480-6 BMI: 26.6 Code : 46146-3 Heart Rate 1 : 63 bpm Height: 5'8" SpO2: 96% Weight: 175 lbs 03/01/2017 Blood Pressure 1: 124/80 Code : 8480-6 BMI: 26.5 Code : 60430-8 Heart Rate 1 : 68 bpm Height: 5'8" SpO2: 97% Weight: 174 lbs 12/23/2016 Blood Pressure 1: 144/82 Code : 8480-6 BMI: 26.6 Code : 08194-0 Heart Rate 1 : 65 bpm Height: 5'8" SpO2: 945% Weight: 175 lbs 09/29/2016 Blood Pressure 1: 124/78 Code : 8480-6 BMI: 25.4 Code : 26051-0 Heart Rate 1 : 62 bpm Height: 5'8" SpO2: 96% Weight: 167 lbs 06/02/2016 Blood Pressure 1: 150/80 Code : 8480-6 BMI: 26.3 Code : 70498-9 Heart Rate 1 : 64 bpm Height: 5'8" SpO2: 96% Weight: 173 lbs 12/03/2015 Blood Pressure 1: 132/78 Code : 8480-6 BMI: 26.5 Code : 17543-5 Heart Rate 1 : 68 bpm Height: 5'8" SpO2: 97% Weight: 174 lbs 06/04/2015 Blood Pressure 1: 120/72 Code : 8480-6 Blood Pressure 1: 120/62 Code: 8480-6 BMI: 25.4 Code: 31277-8 Heart Rate 1: 67 bpm Height: 5'10" SpO2: 95% Weight: 175 lbs 03/06/2015 Blood Pressure 1: 142/84 Code : 8480-6 BMI: 26.9 Code : 79843-0 Heart Rate 1 : 76 bpm Height: 5'8" Respiratory Rate: 20 bpm SpO2: 95% Weight: 177 lbs Functional Status No Functional Status data History of Present Illness Symptom Name Status Result Effective Date Notes hypertension Quality chronic 09/23/2017 None hypertension Onset [...] Directive data Encounters Encounter Performer Location Codes Date ( EST. PATIENT, LEVEL III Diagnosis: Essential (primary) hypertension[ICD10: I10] Diagnosis: Pain in left thigh[ICD10: M79.652] Ramila Esposito MD, [facility] CPT-4: 96047 09/23/2017 ([id number]) [id number] EST. PATIENT, LEVEL III Diagnosis: Essential (primary) hypertension[ICD10: I10] Diagnosis: Other chronic pain[ICD10: G89.29] Ramila Esposito MD, [facility] CPT-4: 23330 08/26/2017 ([id number]) [id number] EST. PATIENT, LEVEL III Diagnosis: Other chronic pain[ICD10: G89.29] Diagnosis: Pain in right shoulder[ICD10: M25.511] Diagnosis: Essential (primary) hypertension[ICD10: I10] Ramila Esposito MD, [facility] CPT-4: 31770 07/22/2017 ([id number]) [id number] EST. PATIENT, LEVEL IV Diagnosis: Essential (primary) hypertension[ICD10: I10] Diagnosis: Other chronic pain[ICD10: G89.29] Diagnosis: Mixed hyperlipidemia[ICD10: E78.2] Diagnosis: Pain in right shoulder[ICD10: M25.511] Ramila Esposito MD, [facility] CPT-4: 98000 03/30/2017 [id number] EST. PATIENT, LEVEL IV Diagnosis: Pain in right arm[ICD10: M79.601] Gabby Esposito MD, [facility] CPT -4: 25634 03/01/2017 ([id number]) [id number] EST. PATIENT, LEVEL III Diagnosis: Other insomnia[ICD10: G47.09] Gabby Esposito MD, [facility] CPT-4 : 66529 12/23/2016 ([id number]) [id number] EST. PATIENT, LEVEL IV Diagnosis: Essential (primary) hypertension[ICD10: I10] Diagnosis: Pain in right knee[ICD10: M25.561] Diagnosis: Pain in left wrist[ICD10: M25.532] Diagnosis: Pain in right wrist[ICD10: M25.531] Ramila Esposito MD, [facility] CPT-4: 98422 09/29/2016 [id number] EST. PATIENT, LEVEL IV Diagnosis: Mixed hyperlipidemia[ICD10: E78.2] Diagnosis: Other chronic pain[ICD10: G89.29] Diagnosis: Essential (primary) hypertension[ICD10: I10] Diagnosis: Pain in right knee[ICD10: M25.561] Ramila Esposito MD, [facility] CPT-4: 12242 06/02/2016 ([id number]) [id number] EST. PATIENT, LEVEL IV Diagnosis: Mixed hyperlipidemia[ICD10: E78.2] Diagnosis: Essential (primary) hypertension[ICD10: I10] Diagnosis: Tobacco use[ICD10: Z72.0] Diagnosis: Encounter for immunization[ICD10: Z23] Ramila Esposito MD, [facility] CPT-4: 68394 12/03/2015 ([id number]) OFFICE VISIT, NEW - LEVEL 4 Diagnosis: ESSENTIAL HYPERTENSION[ICD9: 401.9] Diagnosis: HYPERLIPIDEMIA[ICD9: 272.4] Diagnosis: TOBACCO USE DISORDER[ICD9: 305.1] Diagnosis: Chronic pain[ICD9: 338.29] Ramila Esposito MD, [facility] CPT- 4: 81321 06/04/2015 ([id number]) OFFICE VISIT, NEW - LEVEL 3 Diagnosis: Right knee pain[ICD9: 719.46] Lida Esposito MD, [facility] CPT-4 : 17934 03/06/2015 Plan of Care Planned Activity Notes Codes Status Date Appointment: Ramila Esposito WPtel: [address] [place], [place] [id number] (15 min) Moderate 09/29/2017 Visit Plan: Hypertension [...] point. 09/23/2017 Appointment: Ramila Esposito WPtel: [phone] [phone] (15 min) Moderate 09/23/2017 Patient Education: Patient [...] current regimen 08/26/2017 Appointment: Ramila Esposito WPtel: [phone] [facility] (15 min) Moderate 08/26/2017 Patient Education: Patient [...] of over-medication. 07/22/2017 Appointment: [phone] ([facility]) Moderate 07/22/2017 Patient Education: Patient [...] to medications. 03/30/2017 Appointment: [phone] ([facility] min) Moderate 03/30/2017 Patient Education: Patient [...] if needed. 03/01/2017 Appointment: [phone] ([facility] Complex 03/01/2017 Patient Education: Patient Medication Summary Completed 03/01/2017 Visit Plan: Insomnia - Pt has been advised to increase the light in the house during the day, and start dimming the lights during the evening hours. Pt has been advised to cut out caffeine after 5pm. Daytime napping worsens night time insomnia. 12/23/2016 Appointment: [phone] ([place] min) Complex 12/23/2016 Patient Education: Patient [...] monitor symptoms. 09/29/2016 Appointment: Ramila Esposito WPtel: [facility] (15 min) Moderate 09/29/2016 Patient Education: Patient Medication Summary Completed 09/29/2016 Patient Education: Hypertension Completed 09/29/2016 Appointment: Ramila Esposito WPtel: [facility] (15 min) Moderate 06/30/2016 Visit Plan: Hypertension [...] not improving. 06/02/2016 Appointment: [phone] ([facility] min) Moderate 06/02/2016 Patient Education: Patient [...] today. 12/03/2015 Appointment: [phone] ([facility] min) Complex 12/03/2015 Patient Education: Patient [...] considering being re-evaluated by Dr. Thomas in [place] for surgery. Encouraged to make appointment. Call or return to office if further complaints. 03/06/2015 Appointment: Lindsey Walker [facility]Ptel: [phone] [place] New Patient 03/06/2015 Patient Education: Patient Medication Summary Completed 03/06/2015 Instructions Comment . Insomnia - Pt has [...] considering being re-evaluated by Dr. Thomas in [place] for surgery. Encouraged to make appointment. Call [...]
--- OUTSIDE RECORDS SUMMARY | 2018-01-16 08:40 | XMS REPORT | CCD ---
Author Author Lida Sanchez Organization [facility] Address [address] [place] [address] Phone Care Team Providers Care Car Pusher Name Role Phone PP Unavailable CCM Unavailable Summary Purpose Interface Exchange Insurance Providers Payer name Policy type / Coverage type Covered green party ID Effective Begin Date Effective End Date WPS Medicare Part B [id number] [address] [facility] [id number] Unknown Family history Father Diagnosis Age At Onset Heart Attack Unknown Mother Diagnosis Age At Onset Stroke Unknown Social History Social History Element Codes Description Effective Dates Tobacco history SNOMED CT: 1296621 Former smoker 09/29/2016 Marital status Unknown [employer] 06/02/2016 Number of children Unknown 0 06/02/2016 Number of cigarettes/day Unknown 10 ( Half a pack) 06/02/2016 Frequency of drinks SNOMED CT: 643217602 1-4 drinks per week 03/07/2015 Living arrangements [...] Instructions desoximetasone 0.25 % topical cream RxNorm: 986290 1 Application TOP BID 11/22/2017 No Stop Date Active Keflex 500 mg capsule RxNorm: 708691 1 Capsule(s) PO TID 201712/01/2017 Active Keflex 500 mg capsule RxNorm: 652345 1 Capsule(s) PO TID 201711/21/2017 Inactive oxycodone 15 mg tablet RxNorm: 6666022 1/2 - 1 Tablet(s) PO TID right shoulder pain 11/08/2017 12/07/2017 Active Kenalog 40 mg/mL suspension for injection RxNorm: 3664829 1 Milliliter(s) Inj daily 09/23/2017 09/23/2017 Inactive metoprolol succinate ER 25 mg tablet,extended release 24 hr RxNorm: 012086 1.5 Tablet(s) PO daily 09/20/2017 09/14/2018 Active oxycodone 15 mg tablet RxNorm: 2123188 1/2 - 1 Tablet(s) PO TID right shoulder pain 09/07/2017 10/06/2017 Inactive oxycodone 15 mg tablet RxNorm: 6190493 1/2 - 1 Tablet(s) PO TID right shoulder pain 08/16/2017 09/06/2017 Inactive oxycodone 15 mg tablet RxNorm: 8092614 1/2 - 1 Tablet(s) PO TID right shoulder pain 07/22/2017 08/15/2017 Inactive diclofenac 1 % topical gel RxNorm: 957592 2 Gram(s) TOP QID to right shoulder 07/22/2017 09/19/2017 Inactive metoprolol succinate ER 25 mg tablet,extended release 24 hr RxNorm: 498038 1.5 Tablet(s) PO daily 07/22/2017 09/19/2017 Inactive hydrocodone 10 mg-acetaminophen 325 mg tablet RxNorm: 932873 1-2 Tablet(s) PO Q8 as needed 07/01/2017 08/15/2017 Inactive hydrocodone 10 mg-acetaminophen 325 mg tablet RxNorm: 960970 1-2 Tablet(s) PO Q8 as needed 06/03/2017 06/30/2017 Inactive Xanax 0.25 mg tablet RxNorm: 345399 1/2 - 1 Tablet(s) PO QHS as needed insomnia 05/06/2017 07/04/2017 Inactive hydrocodone 10 mg-acetaminophen 325 mg tablet RxNorm: 342189 1-2 Tablet(s) PO Q8 as needed 05/06/2017 06/02/2017 Inactive hydrocodone 10 mg-acetaminophen 325 mg tablet RxNorm: 806129 1-2 Tablet(s) PO Q8 as needed 03/23/2017 04/21/2017 Inactive acyclovir 800 mg tablet RxNorm: 823837 1 Tablet(s) PO QID 03/0803/07/2017 Inactive acyclovir 800 mg tablet RxNorm: 513180 1 Tablet(s) PO QID 03/0803/14/2017 Inactive gabapentin 300 mg capsule RxNorm: 531134 1 Capsule(s) PO BID 03/25/2017 Inactive gabapentin 300 mg capsule RxNorm: 681978 1 Capsule(s) PO BID 03/04/2017 Inactive gabapentin 100 mg capsule RxNorm: 378407 1 Capsule(s) PO QHS 03/25/2017 Inactive Xanax 0.25 mg tablet RxNorm: 559155 1/2 - 1 Tablet(s) PO QHS as needed insomnia 02/22/2017 03/23/2017 Inactive hydrocodone 10 mg-acetaminophen 325 mg tablet RxNorm: 009313 1-2 Tablet(s) PO Q8 as needed 02/22/2017 03/22/2017 Inactive hydrocodone 10 mg-acetaminophen 325 mg tablet RxNorm: 635606 1-2 Tablet(s) PO Q8 as needed 01/25/2017 02/21/2017 Inactive desoximetasone 0.25 % topical cream RxNorm: 305811 1 Application TOP BID 01/22/2017 11/21/2017 Inactive desoximetasone 0.25 % topical cream RxNorm: 772075 1 Application TOP BID 12/23/2016 01/21/2017 Inactive hydrocodone 10 mg-acetaminophen 325 mg tablet RxNorm: 429398 1-2 Tablet(s) PO Q8 as needed 12/23/2016 01/21/2017 Inactive Xanax 0.25 mg tablet RxNorm: 258406 1/2 - 1 Tablet(s) PO QHS as needed insomnia 12/23/2016 01/21/2017 Inactive hydrocodone 10 mg-acetaminophen 325 mg tablet RxNorm: 021842 1-2 Tablet(s) PO Q8 as needed 11/30/2016 12/22/2016 Inactive hydrocodone 10 mg-acetaminophen 325 mg tablet RxNorm: 905767 1-2 Tablet(s) PO Q8 as needed 10/29/2016 11/27/2016 Inactive hydrocodone 10 mg-acetaminophen 325 mg tablet RxNorm: 413801 1-2 Tablet(s) PO Q8 as needed 09/07/2016 10/06/2016 Inactive hydrocodone 10 mg-acetaminophen 325 mg tablet RxNorm: 473166 1-2 Tablet(s) PO Q8 as needed 08/10/2016 09/06/2016 Inactive hydrocodone 10 mg-acetaminophen 325 mg tablet RxNorm: 094172 1-2 Tablet(s) PO Q8 as needed 07/14/2016 08/09/2016 Inactive morphine ER 15 mg tablet,extended release RxNorm: 886084 1 Tablet(s) PO BID 06/02/2016 07/01/2016 Inactive hydrocodone 10 mg-acetaminophen 325 mg tablet RxNorm: 981225 1-2 Tablet(s) PO Q8 as needed 05/18/2016 06/16/2016 Inactive hydrocodone 10 mg-acetaminophen 325 mg tablet RxNorm: 468062 1-2 Tablet(s) PO Q8 as needed 04/21/2016 05/17/2016 Inactive Chantix 1 mg tablet RxNorm: 724292 1 Tablet(s) PO BID 201506/01/2016 Inactive hydrocodone 10 mg-acetaminophen 325 mg tablet RxNorm: 174653 1-2 Tablet(s) PO Q8 as needed 03/23/2016 04/20/2016 Inactive hydrocodone 10 mg-acetaminophen 325 mg tablet RxNorm: 232023 1-2 Tablet(s) PO Q8 as needed 02/25/2016 03/22/2016 Inactive hydrocodone 10 mg-acetaminophen 325 mg tablet RxNorm: 515538 1-2 Tablet(s) PO Q8 as needed 01/27/2016 02/24/2016 Inactive Chantix 1 mg tablet RxNorm: 344648 1 Tablet(s) PO BID 201504/20/2016 Inactive hydrocodone 10 mg-acetaminophen 325 mg tablet RxNorm: 407960 1-2 Tablet(s) PO Q6 as needed 12/19/2015 01/17/2016 Inactive lisinopril 10 mg tablet RxNorm: 959044 1 Tablet(s) PO daily 10/201509/28/2016 Inactive lovastatin 20 mg tablet RxNorm: 036187 1 Tablet(s) PO daily 10/201509/28/2016 Inactive Chantix Starting Month Box 0.5 mg (11)-1 mg (42) tablets in dose pack RxNorm: 652989 1 Tablet(s) PO UD as directed in the starter pack 201501/01/2016 Inactive hydrocodone 10 mg-acetaminophen 325 mg tablet RxNorm: 925914 1-2 Tablet(s) PO Q6 as needed 11/21/2015 12/18/2015 Inactive hydrocodone 10 mg-acetaminophen 325 mg tablet RxNorm: 830715 1-2 Tablet(s) PO Q6 as needed 10/24/2015 11/20/2015 Inactive hydrocodone 10 mg-acetaminophen 325 mg tablet RxNorm: 829532 1-2 Tablet(s) PO Q6 as needed 08/23/2015 09/21/2015 Inactive hydrocodone 10 mg-acetaminophen 325 mg tablet RxNorm: 707181 1-2 Tablet(s) PO Q6 as needed 07/26/2015 08/22/2015 Inactive hydrocodone 10 mg-acetaminophen 325 mg tablet RxNorm: 585700 1-2 Tablet(s) PO Q6 as needed 06/27/2015 07/25/2015 Inactive lovastatin 20 mg tablet RxNorm: 289474 1 Tablet(s) PO daily 12/16/2015 Inactive hydrocodone 10 mg-acetaminophen 325 mg tablet RxNorm: 556335 1-2 Tablet(s) PO Q6 as needed 05/30/2015 06/26/2015 Inactive lisinopril 10 mg tablet RxNorm: 118456 1 Tablet(s) PO daily 12/16/2015 Inactive lovastatin 10 mg tablet RxNorm: 641084 1 Tablet(s) PO daily 06/12/2015 Inactive hydrocodone 10 mg-acetaminophen 325 mg tablet RxNorm: 508727 1-2 Tablet(s) PO Q6 as needed 05/02/2015 05/29/2015 Inactive hydrocodone 10 mg-acetaminophen 325 mg tablet RxNorm: 611068 1-2 Tablet(s) PO Q6 as needed 04/04/2015 05/01/2015 Inactive hydrocodone 10 mg-acetaminophen 325 mg tablet RxNorm: 360440 1-2 Tablet(s) PO Q6 as needed 03/04/2015 04/02/2015 Inactive atorvastatin 40 mg tablet RxNorm: 652583 1 Tablet(s) PO daily No Start Date Active desoximetasone 0.25 % topical cream RxNorm: 831137 1 Application TOP BID No Start Date Active aspirin 81 mg tablet,delayed release RxNorm: 272362 1 Tablet(s) PO daily No Start Date Active Mobic 15 mg tablet RxNorm: 348936 Tablet(s) PO No Start Date 12/02/2015 Inactive lisinopril 10 mg tablet RxNorm: 310606 1 Tablet(s) PO daily No Start Date 05/29/2015 Inactive metoprolol succinate ER 25 mg tablet,extended release 24 hr RxNorm: 468343 1 Tablet(s) PO daily No Start Date 2016 Inactive lovastatin 10 mg tablet RxNorm: 895035 Tablet(s) PO No Start Date 05/29/2015 Inactive Medication Administered Medication Codes Instructions Start Date Status Kenalog 40 mg/mL suspension for injection RxNorm: 8540488 1Milliliterdaily 09/23/2017 No longer Active Immunizations Vaccine [...] ICD-10: M25.531 ICD-9: 719.43 09/29/2016 Pain in right knee [...] Item Item Code Result Date Comp Metabolic Gat283 NA 138 mEq/L 07/29/2016 Comp Metabolic Lme989 K 4.4 mEq/L 07/29/2016 Comp Metabolic Wve066 CL 106 mEq/L 07/29/2016 Comp Metabolic Hor521 CO2 25.0 mEq/L 07/29/2016 Comp Metabolic Ugc124 ANION GAP 11 07/29/2016 Comp Metabolic Zks777 GLUCOSE 105 mg/dL 07/29/2016 Comp Metabolic Faa478 Creat 0.7 mg/dL 07/29/2016 Comp Metabolic Yhs264 eGFR 127 ml/min/1.73m2 07/29/2016 Comp Metabolic Bsk503 BUN 13 mg/dL 07/29/2016 Comp Metabolic Pcv734 B/C Ratio 19.7 Ratio 07/29/2016 Comp Metabolic Nvu749 CALCIUM 9.0 mg/dL 07/29/2016 Comp Metabolic Edo294 ALK PHOS 81 U/L 07/29/2016 Comp Metabolic Won277 AST(SGOT) 16 U/L 07/29/2016 Comp Metabolic Vwb492 ALT(SGPT) 15 U/L 07/29/2016 Comp Metabolic Lne046 BILI T 0.5 mg/dL 07/29/2016 Comp Metabolic Hur808 ALBUMIN 4.4 g/dL 07/29/2016 Comp Metabolic Zfk991 TPRO 6.6 g/dL 07/29/2016 Comp Metabolic Etr428 GLOB 2.2 g/dL 07/29/2016 Comp Metabolic Scb667 A/G Ratio 2.0 Ratio 07/29/2016 Comp Metabolic Pjf959 Osmo 276 mOsmo 07/29/2016 Magnesium Ord90 Mag 2.1 mg/dL 07/29/2016 Lipid Ord30 CHOL 133 mg/dL 07/29/2016 Lipid Ord30 HDL 41.0 mg/dl 07/29/2016 Lipid Ord30 TRIG 67 mg/dL 07/29/2016 Lipid Ord30 LDL 79 mg/dL 07/29/2016 Lipid Ord30 C/HDL 3.2 Ratio 07/29/2016 Comp Metabolic Ggy004 NA 134 mEq/L 06/02/2016 Comp Metabolic Mgg030 K 4.5 mEq/L 06/02/2016 Comp Metabolic Wea999 CL 100 mEq/L 06/02/2016 Comp Metabolic Uja151 CO2 28.0 mEq/L 06/02/2016 Comp Metabolic Hls723 ANION GAP 11 06/02/2016 Comp Metabolic Xwf944 GLUCOSE 96 mg/dL 06/02/2016 Comp Metabolic Yuj373 Creat 0.7 mg/dL 06/02/2016 Comp Metabolic Adg203 eGFR 123 ml/min/1.73m2 06/02/2016 Comp Metabolic Vwo602 BUN 17 mg/dL 06/02/2016 Comp Metabolic Gve616 B/C Ratio 25.0 Ratio 06/02/2016 Comp Metabolic Vuz858 CALCIUM 9.4 mg/dL 06/02/2016 Comp Metabolic Dja514 ALK PHOS 57 U/L 06/02/2016 Comp Metabolic Crx611 AST(SGOT) 17 U/L 06/02/2016 Comp Metabolic Ndg482 ALT(SGPT) 19 U/L 06/02/2016 Comp Metabolic Wyk121 BILI T 0.6 mg/dL 06/02/2016 Comp Metabolic Zws252 ALBUMIN 4.6 g/dL 06/02/2016 Comp Metabolic Dmw354 TPRO 6.9 g/dL 06/02/2016 Comp Metabolic Gko878 GLOB 2.3 g/dL 06/02/2016 Comp Metabolic Axu688 A/G Ratio 2.0 Ratio 06/02/2016 Comp Metabolic Gxu005 Osmo 270 mOsmo 06/02/2016 Cbc With Differential Ord2 WBC 6.34 K/ul 06/02/2016 Cbc With Differential Ord2 RBC 4.55 M/ul 06/02/2016 Cbc With Differential Ord2 HGB 16.0 g/dl 06/02/2016 Cbc With Differential Ord2 HCT 47.5 % 06/02/2016 Cbc With Differential Ord2 Neut% 58.0 % 06/02/2016 Cbc With Differential Ord2 MCV 104.4 fl 06/02/2016 Cbc With Differential Ord2 Lymph% 28.2 % 06/02/2016 Cbc With Differential Ord2 MCH 35.2 pg 06/02/2016 Cbc With Differential Ord2 [place]% 10.9 % 06/02/2016 Cbc With Differential Ord2 [...] 1.79 K/ul 06/02/2016 Cbc With Differential Ord2 [place] ABS# 0.7 K/ul 06/02/2016 Cbc With Differential Ord2 Eos ABS# 0.2 K/ul 06/02/2016 Cbc With Differential Ord2 Baso ABS# 0.0 K/ul 06/02/2016 Tsh Ord6 hTSH II 1.51 uIU/mL 06/02/2016 Lipid Ord30 CHOL 185 mg/dL 06/02/2016 Lipid Ord30 HDL 35.0 mg/dl 06/02/2016 Lipid Ord30 TRIG 105 mg/dL 06/02/2016 Lipid Ord30 LDL 129 mg/dL 06/02/2016 Lipid Ord30 C/HDL 5.3 Ratio 06/02/2016 Cbc With Differential Ord2 WBC 7.10 K/ul 03/09/2016 Cbc With Differential Ord2 RBC 4.31 M/ul 03/09/2016 Cbc With Differential Ord2 HGB 14.9 g/dl 03/09/2016 Cbc With Differential Ord2 Neut% 58.8 % 03/09/2016 Cbc With Differential Ord2 HCT 45.0 % 03/09/2016 Cbc With Differential Ord2 MCV 104.4 fl 03/09/2016 Cbc With Differential Ord2 Lymph% 26.6 % 03/09/2016 Cbc With Differential Ord2 [place]% 11.1 % 03/09/2016 Cbc With Differential Ord2 [...] 1.89 K/ul 03/09/2016 Cbc With Differential Ord2 [place] ABS# 0.8 K/ul 03/09/2016 Cbc With Differential Ord2 Eos ABS# 0.2 K/ul 03/09/2016 Cbc With Differential Ord2 Baso ABS# 0.0 K/ul 03/09/2016 Cbc With Differential Ord2 New Analyzer Notice Please note new ref ranges starting 10-30-2015 due to implemntation of new five part differential hematolgy analyzer. 03/09/2016 Total Psa Ord10 PSA 0.70 ng/mL 12/03/2015 Cbc With Differential Ord2 WBC 11.90 K/ul 12/03/2015 Cbc With Differential Ord2 RBC 4.35 M/ul 12/03/2015 Cbc With Differential Ord2 HGB 15.2 g/dl 12/03/2015 Cbc With Differential Ord2 Neut% 72.0 % 12/03/2015 Cbc With Differential Ord2 HCT 45.7 % 12/03/2015 Cbc With Differential Ord2 Lymph% 18.2 % 12/03/2015 Cbc With Differential Ord2 MCV 105.1 fl 12/03/2015 Cbc With Differential Ord2 [place]% 8.7 % 12/03/2015 Cbc With Differential Ord2 [...] 2.16 K/ul 12/03/2015 Cbc With Differential Ord2 [place] ABS# 1.0 K/ul 12/03/2015 Cbc With Differential Ord2 Eos ABS# 0.1 K/ul 12/03/2015 Cbc With Differential Ord2 Baso ABS# 0.0 K/ul 12/03/2015 Cbc With Differential Ord2 New Analyzer Notice Please note new ref ranges starting 10-30-2015 due to implemntation of new five part differential hematolgy analyzer. 12/03/2015 Comp Metabolic Jnn863 NA 135 mEq/L 12/03/2015 Comp Metabolic Qng109 K 4.1 mEq/L 12/03/2015 Comp Metabolic Kvy505 CL 100 mEq/L 12/03/2015 Comp Metabolic Nud059 CO2 28.0 mEq/L 12/03/2015 Comp Metabolic Nhx867 ANION GAP 11 12/03/2015 Comp Metabolic Wmg835 GLUCOSE 111 mg/dL 12/03/2015 Comp Metabolic Dit274 Creat 0.8 mg/dL 12/03/2015 Comp Metabolic Wet996 eGFR 108 ml/min/1.73m2 12/03/2015 Comp Metabolic Por764 BUN 15 mg/dL 12/03/2015 Comp Metabolic Evr809 B/C Ratio 19.7 Ratio 12/03/2015 Comp Metabolic Wia686 CALCIUM 9.2 mg/dL 12/03/2015 Comp Metabolic Mit776 ALK PHOS 61 U/L 12/03/2015 Comp Metabolic Ogu528 AST(SGOT) 18 U/L 12/03/2015 Comp Metabolic Yhh516 ALT(SGPT) 19 U/L 12/03/2015 Comp Metabolic Yvq276 BILI T 0.6 mg/dL 12/03/2015 Comp Metabolic Ydu744 ALBUMIN 4.5 g/dL 12/03/2015 Comp Metabolic Xzi446 TPRO 6.8 g/dL 12/03/2015 Comp Metabolic Ltx211 GLOB 2.3 g/dL 12/03/2015 Comp Metabolic Tqg653 A/G Ratio 2.0 Ratio 12/03/2015 Comp Metabolic Yhz286 Osmo 272 mOsmo 12/03/2015 Lipid Ord30 CHOL 188 mg/dL 12/03/2015 Lipid Ord30 HDL 43.0 mg/dl 12/03/2015 Lipid Ord30 TRIG 117 mg/dL 12/03/2015 Lipid Ord30 LDL 122 mg/dL 12/03/2015 Lipid Ord30 C/HDL 4.4 Ratio 12/03/2015 Tsh Ord6 hTSH II 1.19 uIU/mL 12/03/2015 Cbc With Differential Ord2 WBC 7.8 [...] Ord2 RDW 12.6 % 06/07/2015 Comp Metabolic Luk188 NA 133 mEq/L 06/07/2015 Comp Metabolic Pev173 K 4.4 mEq/L 06/07/2015 Comp Metabolic Aoa528 CL 102 mEq/L 06/07/2015 Comp Metabolic Eub470 CO2 26.0 mEq/L 06/07/2015 Comp Metabolic Kkj599 ANION GAP 9 06/07/2015 Comp Metabolic Agr816 GLUCOSE 108 mg/dL 06/07/2015 Comp Metabolic Khp138 Creat 0.7 mg/dL 06/07/2015 Comp Metabolic Knt075 eGFR 121 ml/min/1.73m2 06/07/2015 Comp Metabolic Vxj481 BUN 15 mg/dL 06/07/2015 Comp Metabolic Wsz959 B/C Ratio 21.7 Ratio 06/07/2015 Comp Metabolic Idd342 CALCIUM 9.1 mg/dL 06/07/2015 Comp Metabolic Kmo375 ALK PHOS 55 U/L 06/07/2015 Comp Metabolic Crl106 AST(SGOT) 17 U/L 06/07/2015 Comp Metabolic Vio094 ALT(SGPT) 18 U/L 06/07/2015 Comp Metabolic Hut560 BILI T 0.5 mg/dL 06/07/2015 Comp Metabolic Vja272 ALBUMIN 4.3 g/dL 06/07/2015 Comp Metabolic Cnw151 TPRO 6.5 g/dL 06/07/2015 Comp Metabolic Zjm904 GLOB 2.2 g/dL 06/07/2015 Comp Metabolic Ydy061 A/G Ratio 2.0 Ratio 06/07/2015 Comp Metabolic Fwo951 Osmo 268 mOsmo 06/07/2015 Tsh Ord6 hTSH [...] Date INJ TRIGGER POINT 10/19 MUSCL CPT-4: 04408 09/23/2017 TRIAMCINOLONE ACET INJ NOS CPT-4: J3301 09/23/2017 APPENDECTOMY CPT-4: 88513 01/16/2017 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6 Code: 68328-3 Heart Rate 1: 72 bpm Height: 5'8" SpO2: 95% Weight: 181 lbs 8 oz 07/22/2017 Blood Pressure 1: 156/80 Code : 8480-6 BMI: 28.0 Code : 27992-7 Heart Rate 1 : 69 bpm Height: 5'8" SpO2: 95% Weight: 184 lbs 03/30/2017 Blood Pressure 1: 140/80 Code : 8480-6 BMI: 26.6 Code : 05645-7 Heart Rate 1 : 63 bpm Height: 5'8" SpO2: 96% Weight: 175 lbs 03/01/2017 Blood Pressure 1: 124/80 Code : 8480-6 BMI: 26.5 Code : 43893-5 Heart Rate 1 : 68 bpm Height: 5'8" SpO2: 97% Weight: 174 lbs 12/23/2016 Blood Pressure 1: 144/82 Code : 8480-6 BMI: 26.6 Code : 15386-4 Heart Rate 1 : 65 bpm Height: 5'8" SpO2: 945% Weight: 175 lbs 09/29/2016 Blood Pressure 1: 124/78 Code : 8480-6 BMI: 25.4 Code : 38978-3 Heart Rate 1 : 62 bpm Height: 5'8" SpO2: 96% Weight: 167 lbs 06/02/2016 Blood Pressure 1: 150/80 Code : 8480-6 BMI: 26.3 Code : 84140-1 Heart Rate 1 : 64 bpm Height: 5'8" SpO2: 96% Weight: 173 lbs 12/03/2015 Blood Pressure 1: 132/78 Code : 8480-6 BMI: 26.5 Code : 65025-2 Heart Rate 1 : 68 bpm Height: 5'8" SpO2: 97% Weight: 174 lbs 06/04/2015 Blood Pressure 1: 120/72 Code : 8480-6 Blood Pressure 1: 120/62 Code: 8480-6 BMI: 25.4 Code: 07687-8 Heart Rate 1: 67 bpm Height: 5'10" SpO2: 95% Weight: 175 lbs 03/06/2015 Blood Pressure 1: 142/84 Code : 8480-6 BMI: 26.9 Code : 32133-4 Heart Rate 1 : 76 bpm Height: [...] data Encounters Encounter Performer Location Codes Date ) 60609 EST. PATIENT, LEVEL III Diagnosis: Essential (primary) hypertension[ICD10: I10] Diagnosis: Pain in left thigh[ICD10: M79.652] [facility] CPT-4: 07203 09/23/2017 ([id number]) 33844 EST. PATIENT, LEVEL III Diagnosis: Essential (primary) hypertension[ICD10: I10] Diagnosis: Other chronic pain[ICD10: G89.29] [facility] CPT-4: 76767 08/26/2017 ([id number]) 85330 EST. PATIENT, LEVEL III Diagnosis: Other chronic pain[ICD10: G89.29] Diagnosis: Pain in right shoulder[ICD10: M25.511] Diagnosis: Essential (primary) hypertension[ICD10: I10] [facility] CPT-4: 69055 07/22/2017 ([id number]) 38838 EST. PATIENT, LEVEL IV Diagnosis: Essential (primary) hypertension[ICD10: I10] Diagnosis: Other chronic pain[ICD10: G89.29] Diagnosis: Mixed hyperlipidemia[ICD10: E78.2] Diagnosis: Pain in right shoulder[ICD10: M25.511] [facility] MD, [facility] CPT-4: 21836 03/30/2017 39829 EST. PATIENT, LEVEL IV Diagnosis: Pain in right arm[ICD10: M79.601] Gabby [facility] MD [facility] CPT -4: 88936 03/01/2017 ([id number]) 57676 EST. PATIENT, LEVEL III Diagnosis: Other insomnia[ICD10: G47.09] Gabby Es[facility]ito MD, [facility] CPT-4 : 19778 12/23/2016 ([id number]) 03218 EST. PATIENT, LEVEL IV Diagnosis: Essential (primary) hypertension[ICD10: I10] Diagnosis: Pain in right knee[ICD10: M25.561] Diagnosis: Pain in left wrist[ICD10: M25.532] Diagnosis: Pain in right wrist[ICD10: M25.531] [facility], [facility] CPT-4: 39651 09/29/2016 ([id number]) 58605 EST. PATIENT, LEVEL IV Diagnosis: Mixed hyperlipidemia[ICD10: E78.2] Diagnosis: Other chronic pain[ICD10: G89.29] Diagnosis: Essential (primary) hypertension[ICD10: I10] Diagnosis: Pain in right knee[ICD10: M25.561] [facility], [facility] CPT-4: 77649 06/02/2016 ([id number]) 34625 EST. PATIENT, LEVEL IV Diagnosis: Mixed hyperlipidemia[ICD10: E78.2] Diagnosis: Essential (primary) hypertension[ICD10: I10] Diagnosis: Tobacco use[ICD10: Z72.0] Diagnosis: Encounter for immunization[ICD10: Z23] [facility], [facility] CPT-4: 69995 12/03/2015 ([id number]) OFFICE VISIT, NEW - LEVEL 4 Diagnosis: ESSENTIAL HYPERTENSION[ICD9: 401.9] Diagnosis: HYPERLIPIDEMIA[ICD9: 272.4] Diagnosis: TOBACCO USE DISORDER[ICD9: 305.1] Diagnosis: Chronic pain[ICD9: 338.29] [facility] MD, [facility] CPT- 4: 66699 06/04/2015 ([id number]) OFFICE VISIT, NEW - LEVEL 3 Diagnosis: Right knee pain[ICD9: 719.46] [facility] CPT-4 : 68382 03/06/2015 Plan of Care Planned Activity Notes Codes Status Date App[facility]ment[phone] [facility] ([facility] min) Moderate 09/29/2017 Visit Plan: Hypertension [...] point. 09/23/2017 Appointment: [phone] [facility] ([place] min) Moderate 09/23/2017 Patient Education: Patient [...] regimen 08/26/2017 Appointment: [phone] [facility] ([place] min) Moderate 08/26/2017 Patient Education: Patient [...] of over-medication. 07/22/2017 App[facility]ment: [phone] [facility] ([place] min) Moderate 07/22/2017 Patient Education: Patient [...] medications. 03/30/2017 Appointment: [phone] [facility] ([place] min) Moderate 03/30/2017 Patient Education: Patient [...] if needed. 03/01/2017 Appointment: Gabby Echevarria WPtel: [facility] (30 min) Complex 03/01/2017 Patient Education: Patient Medication Summary Completed 03/01/2017 Visit Plan: Insomnia - Pt has been advised to increase the light in the house during the day, and start dimming the lights during the evening hours. Pt has been advised to cut out caffeine after 5pm. Daytime napping worsens night time insomnia. 12/23/2016 Appointment: Gabby Echevarria WPtel: [facility] (30 min) Complex 12/23/2016 Patient Education: Patient [...] monitor symptoms. 09/29/2016 Appointment: Ramila Esposito WPtel: [facility] (15 min) Moderate 09/29/2016 Patient Education: Patient Medication Summary Completed 09/29/2016 Patient Education: Hypertension Completed 09/29/2016 Appointment: Ramila Esposito WPtel: [facility] (15 min) Moderate 06/30/2016 Visit Plan: Hypertension [...] not improving. 06/02/2016 Appointment: [facility] [phone] [facility] ([place] min) Moderate 06/02/2016 Patient Education: Patient [...] today. 12/03/2015 App[facility]ment: [phone] [facility] ([place]) Complex 12/03/2015 Patient Education: Patient [...] considering being re-evaluated by Dr. Thomas in [place] for surgery. Encouraged to make appointment. Call or return to office if further complaints. 03/06/2015 App[facility]ment: [phone] [place] New Patient 03/06/2015 Patient [...] considering being re-evaluated by Dr. Thomas in [place] for surgery. Encouraged to make appointment. Call [...]
--- OUTSIDE RECORDS SUMMARY | 2018-01-16 08:41 | XMS REPORT | Continuity of Care Document ---
Author Author [facility] Organization [facility] Address Unknown Phone Unavailable Allergies Active Description Code Type Severity Reaction Onset Reported/Identified Relationship to Patient Clinical Status Yes No Known Drug Allergies [id number] Drug Allergy Unknown N/A 02/10/2017 Medications There is no data. Problems Date Dx Coded Attending Type Code Diagnosis Diagnosed By 03/15/2014 JAIME QUIJANO DO Ot 727.43 GANGLION NOS 06/04/2015 JAIME QUIJANO DO Ot 727.43 06/04/2015 JAIME QUIJANO DO Ot V72.83 06/04/2015 JAIME QUIJANO DO Ot V74.8 06/07/2015 JAIME QUIJANO DO Ot 727.43 06/07/2015 JAIME QUIJANO DO Ot V72.83 06/07/2015 JAIME QUIJANO DO Ot V74.8 06/07/2015 Ot 719.43 06/11/2015 CINDY PRAJAPATI, RENETTA Georges Ot 272.4 06/11/2015 CINDY PRAJAPATI, RENETTA A Ot 305.1 06/11/2015 CINDY PRAJAPATI, RENETTA A Ot 401.9 06/27/2015 CINDY PRAJAPATI, RENETTA A Ot 272.4 06/27/2015 CINDY PRAJAPATI, RENETTA A Ot 305.1 06/27/2015 CINDY PRAJAPATI, RENETTA A Ot 401.9 07/10/2015 CINDY PRAJAPATI, RENETTA A Ot 272.4 07/10/2015 CINDY PRAJAPATI, RENETTA A Ot 305.1 07/10/2015 CINDY PRAJAPATI, RENETTA Georges Ot 401.9 06/09/2016 SUSAN PRAJAPATI, WALTER Vogt Ot E78.5 HYPERLIPIDEMIA, UNSPECIFIED 06/09/2016 SUSAN PRAJAPATI, WALTER Vogt Ot F17.210 NICOTINE DEPENDENCE, CIGARETTES, UNCOMPL 06/09/2016 SUSAN PRAJAPATI, WALTER Vogt Ot I10 ESSENTIAL (PRIMARY) HYPERTENSION 06/09/2016 WALTER DAVIS MD Ot R07.9 CHEST PAIN, UNSPECIFIED 06/09/2016 WALTER DAVIS MD Ot Z79.899 OTHER INTERMEDIATE (CURRENT) DRUG THERAPY 06/09/2016 JAIME QUIJANO DO Ot 727.43 GANGLION NOS 06/09/2016 JAIME QUIJANO DO Ot V72.83 EXAM PRE-OPERATIVE NEC 06/09/2016 JAIME QUIJANO DO Ot V74.8 SCREEN-BACTERIAL DIS NEC 06/09/2016 RENETTA WHITE MD Ot 272.4 HYPERLIPIDEMIA NEC/NOS 06/09/2016 RENETTA WHITE MD Ot 305.1 TOBACCO USE DISORDER 06/09/2016 RENETTA WHITE MD Ot 401.9 HYPERTENSION NOS 06/10/2016 JAIME QUIJANO DO Ot 727.43 GANGLION NOS 06/10/2016 JAIME QUIJANO DO Ot V72.83 EXAM PRE-OPERATIVE NEC 06/10/2016 JAIME QUIJANO DO Ot V74.8 SCREEN-BACTERIAL DIS NEC 06/10/2016 RENETTA WHITE MD Ot 272.4 HYPERLIPIDEMIA NEC/NOS 06/10/2016 RENETTA WHITE MD Ot 305.1 TOBACCO USE DISORDER 06/10/2016 RENETTA WHITE MD Ot 401.9 HYPERTENSION NOS 06/10/2016 WALTER DAVIS MD Ot E78.5 HYPERLIPIDEMIA, UNSPECIFIED 06/10/2016 WALTER DAVIS MD Ot F17.210 NICOTINE DEPENDENCE, CIGARETTES, UNCOMPL 06/10/2016 WALTER DAVIS MD T Ot I10 ESSENTIAL (PRIMARY) HYPERTENSION 06/10/2016 WALTER DAVIS MD Ot R07.9 CHEST PAIN, UNSPECIFIED 06/10/2016 WALTER DAVIS MD Ot Z79.899 OTHER INTERMEDIATE (CURRENT) DRUG THERAPY 06/11/2016 WALTER DAVIS MD Ot E78.5 HYPERLIPIDEMIA, UNSPECIFIED 06/11/2016 WALTER DAVIS MD T Ot F17.210 NICOTINE DEPENDENCE, CIGARETTES, UNCOMPL 06/11/2016 WALTER DAVIS MD T Ot I10 ESSENTIAL (PRIMARY) HYPERTENSION 06/11/2016 WALTER DAVIS MD Ot R07.9 CHEST PAIN, UNSPECIFIED 06/11/2016 WALTER DAVIS MD Ot Z79.899 OTHER SUPERINTENDENT INSTITUTION (CURRENT) DRUG THERAPY 06/19/2016 JAIME QUIJANO DO Ot 727.43 GANGLION NOS 06/19/2016 JAIME QUIJANO DO Ot V72.83 EXAM PRE-OPERATIVE NEC 06/19/2016 JAIME QUIJANO DO Ot V74.8 SCREEN-BACTERIAL DIS NEC 06/19/2016 RENETTA WHITE MD Ot 272.4 HYPERLIPIDEMIA NEC/NOS 06/19/2016 RENETTA WHITE MD Ot 305.1 TOBACCO USE DISORDER 06/19/2016 RENETTA WHITE MD Ot 401.9 HYPERTENSION NOS 06/19/2016 MARTÍNEZ PRAJAPATI FACC, SAMANTA FACP CCDS Ot E78.5 HYPERLIPIDEMIA, UNSPECIFIED 06/19/2016 MARTÍNEZ PRAJAPATI FACC, ALI FACP CCDS Ot I10 ESSENTIAL (PRIMARY) HYPERTENSION 06/19/2016 MARTÍNEZ PRAJAPATI FACC, ALI FACP CCDS Ot I25.10 ATHSCL HEART DISEASE OF [place] CORONARY 06/19/2016 MARTÍNEZ PRAJAPATI FACC, SAMANTA FACP CCDS Ot I25.84 CORONARY ATHEROSCLEROSIS DUE TO CALCIFIE 06/19/2016 MARTÍNEZ PRAJAPATI FACC, SAMANTA FACP CCDS Ot M19.90 UNSPECIFIED OSTEOARTHRITIS, UNSPECIFIED 06/19/2016 MARTÍNEZ PRAJAPATI FACC, ALI FACP CCDS Ot Z72.0 TOBACCO USE 06/19/2016 MARTÍNEZ PRAJAPATI FACC, ALI FACP CCDS Ot Z79.899 OTHER INTERMEDIATE (CURRENT) DRUG THERAPY 06/30/2016 MARTÍNEZ PRAJAPATI FACC, SAMANTA FACP CCDS Ot E78.5 HYPERLIPIDEMIA, UNSPECIFIED 06/30/2016 MARTÍNEZ PRAJAPATI FACC, ALI FACP CCDS Ot I10 ESSENTIAL (PRIMARY) HYPERTENSION 06/30/2016 MARTÍNEZ PRAJAPATI FACC, ALI FACP CCDS Ot I25.10 ATHSCL HEART DISEASE OF [place] CORONARY 06/30/2016 MARTÍNEZ PRAJAPATI FACC, ALI FACP CCDS Ot I25.84 CORONARY ATHEROSCLEROSIS DUE TO CALCIFIE 06/30/2016 MARTÍNEZ PRAAJPATI FACC, ALI FACP CCDS Ot M19.90 UNSPECIFIED OSTEOARTHRITIS, UNSPECIFIED 06/30/2016 MARTÍNEZ PRAJAPATI FACC, ALI FACP CCDS Ot Z72.0 TOBACCO USE 06/30/2016 MARTÍNEZ PRAJAPATI [facility], [facility]A [facility] CCDS Ot Z79.899 OTHER INTERMEDIATE (CURRENT) DRUG THERAPY 02/10/2017 CHAKA RUTH MD Ot E78.00 PURE HYPERCHOLESTEROLEMIA, UNSPECIFIED 02/10/2017 CHAKA RUTH MD Ot I10 ESSENTIAL (PRIMARY) HYPERTENSION 02/10/2017 CHAKA RUTH MD Ot I25.10 ATHSCL HEART DISEASE OF [place] CORONARY 02/10/2017 CHAKA RUTH MD Ot K35.80 UNSPECIFIED ACUTE APPENDICITIS 02/10/2017 CHAKA RUTH MD Ot Z79.899 OTHER INTERMEDIATE (CURRENT) DRUG THERAPY 02/12/2017 CHAKA RUTH MD Ot E78.00 PURE HYPERCHOLESTEROLEMIA, UNSPECIFIED 02/12/2017 CHAKA RUTH MD Ot I10 ESSENTIAL (PRIMARY) HYPERTENSION 02/12/2017 CHAKA RUTH MD Ot I25.10 ATHSCL HEART DISEASE OF [place] CORONARY 02/12/2017 CHAKA RUTH MD Ot K35.80 UNSPECIFIED ACUTE APPENDICITIS 02/12/2017 CHAKA RUTH MD Ot Z79.899 OTHER INTERMEDIATE (CURRENT) DRUG THERAPY 02/19/2017 CHAKA RUTH MD Ot E78.00 PURE HYPERCHOLESTEROLEMIA, UNSPECIFIED 02/19/2017 CHAKA RUTH MD Ot I10 ESSENTIAL (PRIMARY) HYPERTENSION 02/19/2017 CHAKA RUTH MD Ot I25.10 ATHSCL HEART DISEASE OF [place] CORONARY 02/19/2017 CHAKA RUTH MD Ot K35.80 UNSPECIFIED ACUTE APPENDICITIS 02/19/2017 CHAKA RUTH MD Ot Z79.899 OTHER INTERMEDIATE (CURRENT) DRUG THERAPY Procedures There is no data. Results Test Result Range Complete blood count (CBC) with automated white blood cell (WBC) differential - 06/09/16 09:28 Blood leukocytes automated count (number/volume) 6.8 10*3/uL 4.3-11.0 Blood erythrocytes automated count (number/volume) 4.40 10*6/uL 4.35-5.85 Venous blood hemoglobin measurement (mass/volume) 15.3 g/dL 13.3-17.7 Blood hematocrit (volume fraction) 45 % 40-54 Automated erythrocyte mean corpuscular volume 102 [foz_us] 80-99 Automated erythrocyte mean corpuscular hemoglobin (mass per erythrocyte) 35 pg 25-34 Automated erythrocyte mean corpuscular hemoglobin concentration measurement ( mass/volume) 34 g/dL 32-36 Automated erythrocyte distribution width ratio 12.5 % 10.0-14.5 Automated blood platelet count (count/volume) 171 10*3/uL 130-400 Automated blood platelet mean volume measurement 9.3 [foz_us] 7.4-10.4 Automated blood neutrophils/100 leukocytes 61 % 42-75 Automated blood lymphocytes/100 leukocytes 26 % 12-44 Blood monocytes/100 leukocytes 10 % 0-12 Automated blood eosinophils/100 leukocytes 3 % 0-10 Automated blood basophils/100 leukocytes 0 % 0-10 Blood neutrophils automated count (number/volume) 4.2 10*3 1.8-7.8 Blood lymphocytes automated count (number/volume) 1.8 10*3 1.0-4.0 Blood monocytes automated count (number/volume) 0.7 10*3 0.0-1.0 Automated eosinophil count 0.2 10*3/uL 0.0-0.3 Automated blood basophil count (count/volume) 0.0 10*3/uL 0.0-0.1 PT panel in platelet poor plasma by coagulation assay - 06/09/16 09:28 Prothrombin time (PT) in platelet poor plasma by coagulation assay 12.9 s 12.2-14.7 INR in platelet poor plasma or blood by coagulation assay 1.0 0.8-1.4 Activated partial thromboplastin time (aPTT) in platelet poor plasma bycoagulation assay - 06/09/16 09:28 Activated partial thromboplastin time (aPTT) in platelet poor plasma bycoagulation assay 33 s 24-35 Comprehensive metabolic panel - 06/09/16 09:28 Serum or plasma sodium measurement (moles/volume) 137 mmol/L 135-145 Serum or plasma potassium measurement (moles/volume) 4.0 mmol/L 3.6-5.0 Serum or plasma chloride measurement (moles/volume) 103 mmol/L 98-107 Carbon dioxide 26 mmol/L 21-32 Serum or plasma anion gap determination (moles/volume) 8 mmol/L 5-14 Serum or plasma urea nitrogen measurement (mass/volume) 12 mg/dL 7-18 Serum or plasma creatinine measurement (mass/volume) 0.78 mg/dL 0.60-1.30 Serum or plasma urea nitrogen/creatinine mass ratio 15 NRG Serum or plasma creatinine measurement with calculation of estimated glomerular filtration rate > NRG Serum or plasma glucose measurement (mass/volume) 113 mg/dL 70-105 Serum or plasma calcium measurement (mass/volume) 9.5 mg/dL 8.5-10.1 Serum or plasma total bilirubin measurement (mass/volume) 0.9 mg/dL 0.1-1.0 Serum or plasma alkaline phosphatase measurement (enzymatic activity/volume) 59 U/L 40-136 Serum or plasma aspartate aminotransferase measurement (enzymatic activity/ volume) 20 U/L 5-34 Serum or plasma alanine aminotransferase measurement (enzymatic activity/volume ) 24 U/L 0-55 Serum or plasma protein measurement (mass/volume) 6.9 g/dL 6.4-8.2 Serum or plasma albumin measurement (mass/volume) 4.5 g/dL 3.2-4.5 Magnesium - 06/09/16 09:28 Magnesium 2.4 mg/dL 1.8-2.4 Serum or plasma troponin i.cardiac measurement (mass/volume) - 06/09/16 09:28 Serum or plasma troponin i.cardiac measurement (mass/volume) < ng/ mL <0.30 Myoglobin, serum - 06/09/16 09:28 Myoglobin, serum 39.4 ng/mL 10.0-92.0 Methicillin resistant Staphylococcus aureus (MRSA) screening culture - 11:41 Methicillin resistant Staphylococcus aureus (MRSA) screening culture NEG NRG Automated blood complete blood count (hemogram) panel - 06/19/16 11:42 Blood leukocytes automated count (number/volume) 7.8 10*3/uL 4.3-11.0 Blood erythrocytes automated count (number/volume) 4.68 10*6/uL 4.35-5.85 Venous blood hemoglobin measurement (mass/volume) 16.3 g/dL 13.3-17.7 Blood hematocrit (volume fraction) 47 % 40-54 Automated erythrocyte mean corpuscular volume 101 [foz_us] 80-99 Automated erythrocyte mean corpuscular hemoglobin (mass per erythrocyte) 35 pg 25-34 Automated erythrocyte mean corpuscular hemoglobin concentration measurement ( mass/volume) 34 g/dL 32-36 Automated erythrocyte distribution width ratio 12.4 % 10.0-14.5 Automated blood platelet count (count/volume) 209 10*3/uL 130-400 Automated blood platelet mean volume measurement 9.6 [foz_us] 7.4-10.4 PT panel in platelet poor plasma by coagulation assay - 06/19/16 11:42 Prothrombin time (PT) in platelet poor plasma by coagulation assay 12.6 s 12.2-14.7 INR in platelet poor plasma or blood by coagulation assay 1.0 0.8-1.4 Activated partial thromboplastin time (aPTT) in platelet poor plasma bycoagulation assay - 06/19/16 11:42 Activated partial thromboplastin time (aPTT) in platelet poor plasma bycoagulation assay 33 s 24-35 Comprehensive metabolic panel - 06/19/16 11:42 Serum or plasma sodium measurement (moles/volume) 138 mmol/L 135-145 Serum or plasma potassium measurement (moles/volume) 4.2 mmol/L 3.6-5.0 Serum or plasma chloride measurement (moles/volume) 104 mmol/L 98-107 Carbon dioxide 25 mmol/L 21-32 Serum or plasma anion gap determination (moles/volume) 9 mmol/L 5-14 Serum or plasma urea nitrogen measurement (mass/volume) 16 mg/dL 7-18 Serum or plasma creatinine measurement (mass/volume) 0.99 mg/dL 0.60-1.30 Serum or plasma urea nitrogen/creatinine mass ratio 16 NRG Serum or plasma creatinine measurement with calculation of estimated glomerular filtration rate > NRG Serum or plasma glucose measurement (mass/volume) 109 mg/dL 70-105 Serum or plasma calcium measurement (mass/volume) 9.7 mg/dL 8.5-10.1 Serum or plasma total bilirubin measurement (mass/volume) 0.8 mg/dL 0.1-1.0 Serum or plasma alkaline phosphatase measurement (enzymatic activity/volume) 61 U/L 40-136 Serum or plasma aspartate aminotransferase measurement (enzymatic activity/ volume) 19 U/L 5-34 Serum or plasma alanine aminotransferase measurement (enzymatic activity/volume ) 24 U/L 0-55 Serum or plasma protein measurement (mass/volume) 7.5 g/dL 6.4-8.2 Serum or plasma albumin measurement (mass/volume) 4.9 g/dL 3.2-4.5 Lipid 1996 panel - 06/19/16 11:42 Serum or plasma triglyceride measurement (mass/volume) 113 mg/dL <150 Serum or plasma cholesterol measurement (mass/volume) 168 mg/dL < 200 Serum or plasma cholesterol in HDL measurement (mass/volume) 35 mg/ dL 40-60 Cholesterol in LDL [mass/volume] in serum or plasma by direct assay 110 mg/dL 1-129 Serum or plasma cholesterol in VLDL measurement (mass/volume) 23 mg/ dL 5-40 Complete blood count (CBC) with automated white blood cell (WBC) differential - 02/10/17 07:50 Blood leukocytes automated count (number/volume) 12.9 10*3/uL 4.3-11.0 Blood erythrocytes automated count (number/volume) 4.46 10*6/uL 4.35-5.85 Venous blood hemoglobin measurement (mass/volume) 15.3 g/dL 13.3-17.7 Blood hematocrit (volume fraction) 45 % 40-54 Automated erythrocyte mean corpuscular volume 101 [foz_us] 80-99 Automated erythrocyte mean corpuscular hemoglobin (mass per erythrocyte) 34 pg 25-34 Automated erythrocyte mean corpuscular hemoglobin concentration measurement ( mass/volume) 34 g/dL 32-36 Automated erythrocyte distribution width ratio 12.5 % 10.0-14.5 Automated blood platelet count (count/volume) 157 10*3/uL 130-400 Automated blood platelet mean volume measurement 9.0 [foz_us] 7.4-10.4 Automated blood neutrophils/100 leukocytes 85 % 42-75 Automated blood lymphocytes/100 leukocytes 9 % 12-44 Blood monocytes/100 leukocytes 6 % 0-12 Automated blood eosinophils/100 leukocytes 0 % 0-10 Automated blood basophils/100 leukocytes 0 % 0-10 Blood neutrophils automated count (number/volume) 11.0 10*3 1.8-7.8 Blood lymphocytes automated count (number/volume) 1.1 10*3 1.0-4.0 Blood monocytes automated count (number/volume) 0.7 10*3 0.0-1.0 Automated eosinophil count 0.0 10*3/uL 0.0-0.3 Automated blood basophil count (count/volume) 0.0 10*3/uL 0.0-0.1 Comprehensive metabolic panel - 02/10/17 07:50 Serum or plasma sodium measurement (moles/volume) 137 mmol/L 135-145 Serum or plasma potassium measurement (moles/volume) 4.1 mmol/L 3.6-5.0 Serum or plasma chloride measurement (moles/volume) 104 mmol/L 98-107 Carbon dioxide 22 mmol/L 21-32 Serum or plasma anion gap determination (moles/volume) 11 mmol/L 5-14 Serum or plasma urea nitrogen measurement (mass/volume) 15 mg/dL 7-18 Serum or plasma creatinine measurement (mass/volume) 0.79 mg/dL 0.60-1.30 Serum or plasma urea nitrogen/creatinine mass ratio 19 NRG Serum or plasma creatinine measurement with calculation of estimated glomerular filtration rate > NRG Serum or plasma glucose measurement (mass/volume) 130 mg/dL 70-105 Serum or plasma calcium measurement (mass/volume) 9.4 mg/dL 8.5-10.1 Serum or plasma total bilirubin measurement (mass/volume) 0.8 mg/dL 0.1-1.0 Serum or plasma alkaline phosphatase measurement (enzymatic activity/volume) 69 U/L 40-136 Serum or plasma aspartate aminotransferase measurement (enzymatic activity/ volume) 32 U/L 5-34 Serum or plasma alanine aminotransferase measurement (enzymatic activity/volume ) 26 U/L 0-55 Serum or plasma protein measurement (mass/volume) 7.2 g/dL 6.4-8.2 Serum or plasma albumin measurement (mass/volume) 4.6 g/dL 3.2-4.5 Complete urinalysis with reflex to culture - 02/10/17 08:47 Urine color determination YELLOW NRG Urine clarity determination CLEAR NRG Urine pH measurement by test strip 5 5-9 Specific gravity of urine by test strip 1.020 1.016- 1.022 Urine protein assay by test strip, semi-quantitative NEGATIVE NEGATIVE Urine glucose detection by automated test strip NEGATIVE NEGATIVE Erythrocytes detection in urine sediment by light microscopy 2+ NEGATIVE Urine ketones detection by automated test strip NEGATIVE NEGATIVE Urine nitrite detection by test strip NEGATIVE NEGATIVE Urine total bilirubin detection by test strip NEGATIVE NEGATIVE Urine urobilinogen measurement by automated test strip (mass/volume) NORMAL NORMAL Urine leukocyte esterase detection by dipstick NEGATIVE NEGATIVE Automated urine sediment erythrocyte count by microscopy (number/high power field) NONE NRG Automated urine sediment leukocyte count by microscopy (number/high power field ) NONE NRG Bacteria detection in urine sediment by light microscopy NEGATIVE NRG Squamous epithelial cells detection in urine sediment by light microscopy NONE NRG Crystals detection in urine sediment by light microscopy NONE NRG Casts detection in urine sediment by light microscopy NONE NRG Mucus detection in urine sediment by light microscopy NEGATIVE NRG Complete urinalysis with reflex to culture NO NRG Methicillin resistant Staphylococcus aureus (MRSA) screening culture - 11:50 Methicillin resistant Staphylococcus aureus (MRSA) screening culture NEG NRG Encounters ACCT No. Visit Date/Time Discharge Status Pt. Type Provider Facility Loc./Unit Complaint [id number] 02/10/2017 09:45:00 02/10/2017 18:35:00 DIS Outpatient CHAKA RUTH MD [facility] ACUTE APPY [id number] 06/19/2016 10:40:00 06/19/2016 16:40:00 DIS Outpatient MARTÍNEZ PRAJAPATI FACC, SAMANTA FACBayron CCDS [facility] CATH ANGINA,SOB, DIZZINESS [id number] 06/09/2016 09:20:00 06/09/2016 11:05:00 DIS Emergency SUSAN PRAJAPATI, WALTER Vogt [facility] ER CHEST PAIN [id number] 06/07/2015 08:24:00 06/07/2015 23:59:59 CLS Outpatient CINDY PRAJAPATI, RENETTA Georges [facility] RAD TOBACCOISM,HTN [id number] 03/15/2014 10:45:00 03/15/2014 14:05:00 DIS [facility] [id number] 03/08/2014 12:42:00 03/08/2014 23:59:59 CLS Outpatient JAIME QUIJANO DO [facility] PREOP RIGHT WRIST GANGLION CYST [id number] 05/12/2012 09:15:00 Document Registration
== END 2018-01-16 03:49 | disposition home or self-care (01) ==
LOC: EDUNIT# 02:23 → ER 02:26
DX: J18.1 Lobar pneumonia, unspecified organism (principal); E78.00 Pure hypercholesterolemia, unspecified; I10 Essential (primary) hypertension; Z87.19 Personal history of other diseases of the digestive system; Z79.82 Long term (current) use of aspirin; Z87.891 Personal history of nicotine dependence; Z95.1 Presence of aortocoronary bypass graft
CPT/HCPCS: 71046; 94640

== ENCOUNTER → 2018-05-23 | Outpatient (CLI) | payer MEDICARE ==
[~2018-05-23] MED LIST changes: +CEFD300C3 PO; +PRD20T PO; +RT-ALBUTEROL SULF 2.5 MG/3 ML PRE-MIX VIAL INH ONE
--- NOTE | 2018-05-23 13:53 | Diagnostic Imaging Report ---
PROCEDURE: CT chest without contrast. TECHNIQUE: Multiple contiguous axial images were obtained through the chest without the use of intravenous contrast. INDICATION: Status post CABG. Study is performed to followup pneumonia. COMPARISON: No prior CT study is available for comparison. FINDINGS: Postop changes of median sternotomy and CABG are noted. Aorta and coronary arteries are heavily calcified. No pericardial or pleural fluid is detected. No axillary lymphadenopathy is detected. No definite mediastinal or hilar lymphadenopathy is detected. The lungs appear to be fairly clear. There is a tiny nodule in the right upper lobe measuring 2 mm. No infiltrates are seen. No dominant mass is identified. The upper abdomen is unremarkable. The bony structures are nonacute. IMPRESSION: Postop changes of median sternotomy and CABG. No acute feature is identified. Dictated by: Dictated on workstation # [id number]
== END ==
LOC: RAD 13:01
PROVIDERS: ATTEND Nurse Practitioner Family
DX: J18.9 Pneumonia, unspecified organism (principal); Z87.891 Personal history of nicotine dependence; Z95.1 Presence of aortocoronary bypass graft
CPT/HCPCS: 71250; 94060; 94726; 94729

== ENCOUNTER → 2018-05-25 | Outpatient (CLI) | payer MEDICARE ==
[~2018-05-25] VITALS: Ht 170.2 cm; Wt 82.1 kg
[~2018-05-25] MED LIST changes: +CATHETER FLUSH 10 ML SYR IV PRN; +REGADENOSON 0.4 MG/5 ML SYR (LEXISCAN) IV ONE; -RT-ALBUTEROL SULF 2.5 MG/3 ML PRE-MIX VIAL INH ONE
[2018-05-25 13:23] VITALS: BP 132/97
--- NOTE | 2018-05-25 22:34 | STRESS TEST ---
DATE OF SERVICE: 05/25/2018 LEXISCAN MYOVIEW STRESS TEST REPORT REFERRING PHYSICIANS: 1. Ramila Esposito MD. 2. Enedelia David MD, MA, FACP, FACC. Heart rate is 55. Baseline blood pressure is 132/97. Baseline EKG is sinus rhythm with no ischemic changes. In summary, the patient was injected with 10.73 mCi of technetium-99 Myoview and the resting images were obtained. Then, the patient received 0.4 mg of Lexiscan followed by 29.7 mCi of technetium-99 Myoview. Throughout the test, there were no EKG changes. The resting and stress images were reviewed and compared in the short axis, horizontal long axis, and vertical long axis views. Review of the images showed diaphragmatic attenuation with mild fixed defect at the mid to apical inferior wall and inferolateral wall with no significant ischemia. SSS is 5, SDS 1, TID value 1.07. On the gated images, the left ventricle appeared to be in normal size with normal contractility. Calculated ejection fraction is 68%. CONCLUSION: 1. The patient tolerated Lexiscan well. 2. Diaphragmatic attenuation with typical male pattern. No significant ischemia or infarction on SPECT images. 3. Normal left ventricular size with normal contractility. Calculated ejection fraction is 68%. Job ID: [id number] DocumentID: [id number] Dictated Date: 05/25/2018 17:07:34 Manager Media Relations Date: 05/25/2018 22:33:56 Dictated By: STANLEY POMPA MD
== END ==
LOC: CARD 11:58
PROVIDERS: ATTEND Internal Medicine Cardiovascular Disease
DX: I25.10 Atherosclerotic heart disease of native coronary artery without angina pectoris (principal); I10 Essential (primary) hypertension; E78.2 Mixed hyperlipidemia; Z72.0 Tobacco use
CPT/HCPCS: 78452; 93017

== ENCOUNTER → 2019-08-09 | Outpatient (CLI) | payer MEDICARE ==
[~2019-08-09] MED LIST changes: -CATHETER FLUSH 10 ML SYR IV PRN; -OXYC-201 PO; +OXYC1TAB16 PO; -REGADENOSON 0.4 MG/5 ML SYR (LEXISCAN) IV ONE
--- NOTE | 2019-08-09 16:48 | Diagnostic Imaging Report ---
CLINICAL HISTORY: Left third digit pain and swelling. Hand injury two weeks ago while using a drill bit. COMPARISON: None. TECHNIQUE: Three views of the left hand. FINDINGS: There is no acute fracture or dislocation of the left hand. Postsurgical changes are visualized in the intercarpal joints. Degenerative changes are seen throughout the left hand. A radiopaque foreign body is visualized along the ulnar aspect of the second MTP joint. There is surrounding soft tissue opacity which may represent hematoma. IMPRESSION: 1. Radiopaque foreign body along the ulnar aspect of the left second MTP joint with surrounding soft tissue opacity likely representing hematoma. This likely corresponds to the patient's history of injury two weeks ago using a drillbit. Recommend correlation with physical exam. 2. No acute fracture or dislocation in the left hand. Prior surgical fixation is noted in the intercarpal joints. Dictated by: Dictated on workstation # [id number]
== END ==
LOC: RAD 10:48
PROVIDERS: ATTEND Family Medicine
DX: S60.451A Superficial foreign body of left index finger, initial encounter (principal); Z98.890 Other specified postprocedural states
CPT/HCPCS: 73140

== ENCOUNTER → 2020-03-06 | Outpatient (CLI) | payer MEDICARE ==
[~2020-03-06] MED LIST changes: +ACHYD1T PO; +CATHETER FLUSH 10 ML SYR IV PRN; +HOLD METFORMIN - RECEIVED CONTRAST 20 ML VIAL IV SCH; -HYDR-3820 PO; +IOHEXOL 350 MG/ML 100 ML (OMNIPAQUE 350) VIAL IV ONE; -METO-387 PO; +MTP25TSR PO; +NS 100 ML (IVPB) BAG IV ONE
[2020-03-06 09:55] LABS: BUN/CREATININE RATIO 15; CREATININE SERUM 0.81 MG/DL (0.60-1.30); GFR ESTIMATED > 60
--- NOTE | 2020-03-06 13:01 | Diagnostic Imaging Report ---
INDICATION: Carotid stenosis, history of hypertension and coronary artery disease. EXAMINATION: CTA neck obtained with IV contrast bolus and axial slices and sagittal and coronal MIP reconstructions. Dose reduction protocol was used. COMPARISON: There is no prior CTA for comparison. FINDINGS: The aortic arch and great vessel origins are patent and without stenosis. The common carotid arteries on both sides are patent with minor plaquing. There is plaquing in the left carotid bifurcation and proximal internal carotid artery, with less than 30% diameter stenosis. There is plaquing of the right carotid bifurcation and internal carotid origin. The degree of stenosis appears to be approximately 79% by NASCET criteria. The distal internal carotid arteries on both sides are patent with some tortuosity. There is mild plaquing in the carotid siphons. The vertebral arteries on both sides appear patent and are codominant. There is mild plaquing in the intracranial portion of the distal vertebral arteries without high-grade stenosis. IMPRESSION: Plaquing is seen in the carotid bifurcations on both sides, with about 75% stenosis of the right internal carotid artery origin and carotid bifurcation and less than 30% stenosis on the left side. Both vertebrals are patent without significant stenosis. Dictated by: Dictated on workstation # [id number]
== END ==
LOC: RAD FS 09:13
PROVIDERS: ATTEND Internal Medicine Cardiovascular Disease
DX: I10 Essential (primary) hypertension (principal); I25.10 Atherosclerotic heart disease of native coronary artery without angina pectoris; I65.23 Occlusion and stenosis of bilateral carotid arteries
CPT/HCPCS: 36415; 70498; 82565; 84520

== ENCOUNTER 2020-10-28 22:07 | Emergency (ER) | payer MEDICARE ==
[~2020-10-28] VITALS: Ht 172.7 cm; Wt 83.9 kg
[~2020-10-28 22:07] MED LIST changes: -CATHETER FLUSH 10 ML SYR IV PRN; -HOLD METFORMIN - RECEIVED CONTRAST 20 ML VIAL IV SCH; -IOHEXOL 350 MG/ML 100 ML (OMNIPAQUE 350) VIAL IV ONE; -NS 100 ML (IVPB) BAG IV ONE
[2020-10-28 22:13] VITALS: BP 129/105
--- NOTE | 2020-10-28 22:53 | ED General ---
General Chief Complaint: Laceration Stated Complaint: RT EAR LAC Nursing Triage Note: PT AMBULATE TO ROOM FS01 WITH C/O LAC TO RIGHT EAR. PT REPORTS HE WAS SHAVING HAIRS ON THE EAR AND CUT SELF AND IT WILL NOT STOP BLEEDING. PT REPORTS TAKING BLOOD THINNERS. Nursing Sepsis Screen: No Definite Risk Source of Information: Patient History of Present Illness Date Seen by Provider: Oct 28, 2020 Time Seen by Provider: 22:15 Initial Comments Patient has a 74-year-old male who presents with laceration and persistent bleeding from right ear after making the looks of his right ear with a razor blade. Injury occurred just prior to ED arrival. Patient is on Plavix. No other symptoms or complaints. Timing/Duration: 1/2 Hour Severity: Mild Modifying Factors: improves with Other Associated Systoms: Other Allergies and Home Medications Allergies Coded Allergies: No Known Drug Allergies (Unverified , 02/10/17) Home Medications Aspirin 81 Mg Tablet.dr, 81 MG PO DAILY, (Reported) Atorvastatin Calcium 40 Mg Tablet, 40 MG PO HS, (Reported) Cefdinir 300 Mg Capsule, 300 MG PO BID Prescribed by: WARREN CHAMPION on 01/16/18328 Metoprolol Succinate 25 Mg Tab.er.24h, 25 MG PO DAILY, (Reported) Oxycodone HCl/Acetaminophen 1 Each Tablet, 1-2 EACH PO Q4H Prescribed by: CHAKA RUTH on 02/10/17 1354 Prednisone 20 Mg Tab, 40 MG PO DAILY Prescribed by: WARREN CHAMPION on 01/16/189 Patient Home Medication List Home Medication List Reviewed: Yes Review of Systems Review of Systems Constitutional: no symptoms reported Cardiovascular: no symptoms reported All Other Systems Reviewed Negative Unless Noted: Yes Past Gkqdgfh-Voxdvz-Seqskt Hx Past Med/Social Hx: Reviewed Nursing Past Med/Soc Hx Patient Social History Alcohol Use: Regular Use Number of Drinks Today: FF Alcohol Beverage of Choice: Vodka Smoking Status: Former Smoker Type Used: Cigarettes Recent Infectious Disease Expo: No Recent Hopitalizations: No Immunizations Up To Date Date of Pneumonia Vaccine: Jun 19, 2014 Date of Influenza Vaccine: Dec 24, 2011 Seasonal Allergies Seasonal Allergies: No Past Medical History Surgeries: Yes (L HAND, R SHOULDER) Abdominal, CABG, Orthopedic Respiratory: No Cardiac: Yes High Cholesterol, Hypertension Neurological: No Genitourinary: No Gastrointestinal: Yes Abdominal Hernia Musculoskeletal: No Arthritis Endocrine: No HEENT: No Cancer: No Psychosocial: No Integumentary: No Blood Disorders: No Family Medical History Heart Disease Physical Exam Vital Signs Vital Signs - First Documented 10/28/20 22:13 Temp 37.5 Pulse 70 Resp 17 B/P (MAP) 129/105 (113) O2 Delivery Room Air Capillary Refill : Less Than 3 Seconds Height, Weight, BMI Height: 5'7.00" Weight: 181lbs. 0.0oz. 82.192254xq; 28.00 BMI Method:Stated General Appearance: No Apparent Distress HEENT: Other (0.5 cm superficial laceration over apex of helix of right ear with persistent trickle of blood from ear lobe.) Focused Exam Sepsis Stage: Ruled Out Progress/Results/Core Measures Suspected Sepsis Recent Fever Within 48 Hours: No Infection Criteria Present: None New/Unexplained Altered Menta: No Sepsis Screen: No Definite Risk SIRS Temperature: Pulse: 70 Respiratory Rate: 17 Blood Pressure 129 /105 Mean: 113 Results/Orders Vital Signs/I&O 10/28/20 22:13 Temp 37.5 Pulse 70 Resp 17 B/P (MAP) 129/105 (113) O2 Delivery Room Air Capillary Refill : Less Than 3 Seconds Blood Pressure Mean: 113 Departure Communication (Admissions) Wound repair procedure note. Patient's wound closed with electric cautery and wound adhesive. Bandage placed her on head to prevent reinjury or re-bleeding of year. Typical wound care skin instructions given. Pseudomonal Risk: No known risk Impression Primary Impression: Laceration of right ear Disposition: HOME, SELF-CARE Condition: Stable Departure-Patient Inst. Referrals: RENETTA WHITE MD (PCP/Family) Primary Care Physician Patient Instructions: Wound Care ROULA RILEY DO Oct 28, 2020 22:52
== END 2020-10-28 22:55 | disposition home or self-care (01) ==
LOC: EDUNIT# 22:07 → ER FS 22:08
DX: S01.311A Laceration without foreign body of right ear, initial encounter (principal); E78.00 Pure hypercholesterolemia, unspecified; I10 Essential (primary) hypertension; Z87.891 Personal history of nicotine dependence; Z95.1 Presence of aortocoronary bypass graft; Z82.49 Family history of ischemic heart disease and other diseases of the circulatory system; Z79.82 Long term (current) use of aspirin; Z79.52 Long term (current) use of systemic steroids; W26.8XXA Contact with other sharp object(s), not elsewhere classified, initial encounter
CPT/HCPCS: 99282

== ENCOUNTER 2020-10-29 15:52 | Emergency (ER) | payer MEDICARE ==
[~2020-10-29] VITALS: Ht 172.7 cm; Wt 83.9 kg
[2020-10-29 15:55] VITALS: BP 169/84
--- NOTE | 2020-10-29 16:12 | ED Integumentary General ---
General Stated Complaint: RT EAR BLEEDING History of Present Illness Date Seen by Provider: Oct 29, 2020 Time Seen by Provider: 16:09 Initial Comments 74-year-old male presents with a laceration to right ear. Patient was seen during the night after he lacerated his right ear as he was shaving some hairs. Last night there was a cautery and Steri-Strips placed. Reports that the Steri- Strips came off and start bleeding again. Patient has not been able to get the bleeding the stop. Patient is on Plavix. He has no other complaints Allergies and Home Medications Allergies Coded Allergies: No Known Drug Allergies (Unverified , 02/10/17) Home Medications Aspirin 81 Mg Tablet.dr, 81 MG PO DAILY, (Reported) Atorvastatin Calcium 40 Mg Tablet, 40 MG PO HS, (Reported) Cefdinir 300 Mg Capsule, 300 MG PO BID Prescribed by: WARREN CHAMPION on 01/16/18 032 Metoprolol Succinate 25 Mg Tab.er.24h, 25 MG PO DAILY, (Reported) Oxycodone HCl/Acetaminophen 1 Each Tablet, 1-2 EACH PO Q4H Prescribed by: CHAKA RUTH on 02/10/17 1354 Prednisone 20 Mg Tab, 40 MG PO DAILY Prescribed by: WARREN CHAMPION on 01/16/18 0329 Patient Home Medication List Home Medication List Reviewed: Yes Review of Systems Review of Systems Constitutional: no symptoms reported, chills EENTM: see HPI Respiratory: no symptoms reported Cardiovascular: no symptoms reported Gastrointestinal: no symptoms reported Musculoskeletal: no symptoms reported Skin: see HPI Past Zzokldm-Lwkbsw-Cawjjy Hx Past Med/Social Hx: Reviewed Nursing Past Med/Soc Hx Patient Social History Alcohol Beverage of Choice: Vodka Type Used: Cigarettes Recent Hopitalizations: No Immunizations Up To Date Date of Pneumonia Vaccine: Jun 19, 2014 Date of Influenza Vaccine: Dec 24, 2011 Seasonal Allergies Seasonal Allergies: No Past Medical History Surgeries: Yes (L HAND, R SHOULDER) Abdominal, CABG, Orthopedic Respiratory: No Cardiac: Yes High Cholesterol, Hypertension Neurological: No Genitourinary: No Gastrointestinal: Yes Abdominal Hernia Musculoskeletal: No Arthritis Endocrine: No HEENT: No Cancer: No Psychosocial: No Integumentary: No Blood Disorders: No Family Medical History Heart Disease Physical Exam Vital Signs Capillary Refill : General Appearance: WD/WN, no apparent distress HEENT: other (very small laceration on top of right ear that is actively bleeding) Cardiovascular: normal peripheral pulses, regular rate, rhythm Respiratory: lungs clear, normal breath sounds Neurologic/Psychiatric: alert, normal mood/affect, oriented x 3 Skin Problem Location: other (right ear) Skin Problem Character: other (laceration) Procedures/Interventions Wound Location: Ears Wound's Depth, Shape: superficial Wound Explored: clean Betadine Prep?: No Other Closure Supply: Wound Adhesive Progress Wound was cauterized until bleeding stopped. Then a very thin-layer of adhesive was placed over the wound. Patient tolerated well with no acute complications Departure Impression Primary Impression: Laceration of right ear Qualified Codes: S01.311D - Laceration without foreign body of right ear, subsequent encounter Disposition: 01 HOME, SELF-CARE Condition: Stable Departure-Patient Inst. Referrals: RENETTA WHITE MD (PCP/Family) Primary Care Physician Patient Instructions: Laceration Repair With Glue (DC) LEXY VASQUEZ DO Oct 29, 2020 16:12
== END 2020-10-29 16:22 | disposition home or self-care (01) ==
LOC: EDUNIT# 15:52 → ER FS 15:53
DX: S01.311A Laceration without foreign body of right ear, initial encounter (principal); I10 Essential (primary) hypertension; E78.00 Pure hypercholesterolemia, unspecified; Z95.1 Presence of aortocoronary bypass graft; Z79.82 Long term (current) use of aspirin; Z79.52 Long term (current) use of systemic steroids; W26.8XXA Contact with other sharp object(s), not elsewhere classified, initial encounter

== ENCOUNTER → 2020-11-06 | Outpatient (CLI) | payer MEDICARE ==
[2020-11-06 10:16] LABS: BILIRUBIN,URINE NEGATIVE (NEGATIVE); CLARITY,URINE CLEAR; COLOR,URINE YELLOW; GLUCOSE, URINE (UA) NEGATIVE (NEGATIVE); KETONES,URINE NEGATIVE (NEGATIVE); LEUKOCYTE ESTERASE ,URINE NEGATIVE (NEGATIVE); NITRITE,URINE NEGATIVE (NEGATIVE); PH,URINE 5.5 (5-9); PROTEIN,URINE NEGATIVE (NEGATIVE)
[2020-11-06 10:21] LABS: BASOPHILS % (AUTO) 1 % (0-10); EOSINOPHILS # (AUTO) 0.2 10^3/uL (0.0-0.3); EOSINOPHILS % (AUTO) 3 % (0-10); HEMATOCRIT 48 % (40-54); HEMOGLOBIN 16.2 g/dL (13.3-17.7); LYMPHOCYTES # (AUTO) 1.2 10^3/uL (1.0-4.0); LYMPHOCYTES % (AUTO) 20 % (12-44); MEAN CORPUSCULAR HEMOGLOBIN 35 pg (25-34); MEAN CORPUSCULAR HGB CONC 34 g/dL (32-36); MEAN CORPUSCULAR VOLUME 104 fL (80-99); MEAN PLATELET VOLUME 9.2 fL (9.0-12.2); MONOCYTES # (AUTO) 0.7 10^3/uL (0.0-1.0); MONOCYTES % (AUTO) 12 % (0-12); NEUTROPHILS # (AUTO) 4.1 10^3/uL (1.8-7.8); NEUTROPHILS % (AUTO) 65 % (42-75); PLATELET COUNT 158 10^3/uL (130-400); WHITE BLOOD COUNT 6.3 10^3/uL (4.3-11.0)
[2020-11-06 10:25] LABS: BACTERIA,URINE NEGATIVE /HPF; SQUAMOUS EPITHELIAL CELL,UR RARE /HPF; WBC,URINE RARE /HPF
[2020-11-06 10:47] LABS: ALANINE AMINOTRANSFERASE 48 U/L (0-55); ALBUMIN 4.3 GM/DL (3.2-4.5); ALKALINE PHOSPHATASE 64 U/L (40-136); BILIRUBIN,TOTAL 0.6 MG/DL (0.1-1.0); BUN/CREATININE RATIO 17; CALCIUM 9.2 MG/DL (8.5-10.1); CARBON DIOXIDE 20 MMOL/L (21-32); CHLORIDE 105 MMOL/L (98-107); CREATININE SERUM 0.81 MG/DL (0.60-1.30); GFR ESTIMATED > 60; GLUCOSE 111 MG/DL (70-105); POTASSIUM 4.6 MMOL/L (3.6-5.0); SODIUM 136 MMOL/L (135-145); TOTAL PROTEIN 7.3 GM/DL (6.4-8.2)
== END ==
LOC: RAD 09:49
PROVIDERS: ATTEND Thoracic Surgery (Cardiothoracic Vascular Surgery)
DX: Z01.810 Encounter for preprocedural cardiovascular examination (principal); Z01.818 Encounter for other preprocedural examination; I65.23 Occlusion and stenosis of bilateral carotid arteries
CPT/HCPCS: 36415; 80053; 81000; 85025; 93005

== ENCOUNTER 2021-05-26 03:31 | Emergency (ER) | payer MEDICARE ==
[~2021-05-26] VITALS: Ht 167.7 cm; Wt 83.9 kg
[~2021-05-26 03:31] MED LIST changes: -LISI10TA2 PO; +LISI10TA25 PO
[2021-05-26 03:40] VITALS: BP 122/80
--- NOTE | 2021-05-26 03:42 | ED Integumentary General ---
General Chief Complaint: Skin/Wound Problems Stated Complaint: BEE STING History of Present Illness Date Seen by Provider: May 26, 2021 Time Seen by Provider: 03:42 Initial Comments 75-year-old male presents with a bee sting to his left thumb/hand. Patient reports that happened around 10 PM yesterday evening. Patient reports that his hand is mildly swollen little bit stiff and presents because he is not sure what to take for it. He denies any shortness of breath, nausea vomiting or any other systemic complaints. Allergies and Home Medications Allergies Coded Allergies: No Known Drug Allergies (Unverified , 02/10/17) Home Medications Aspirin 81 Mg Tablet.dr, 81 MG PO DAILY, (Reported) Atorvastatin Calcium 40 Mg Tablet, 40 MG PO HS, (Reported) Cefdinir 300 Mg Capsule, 300 MG PO BID Prescribed by: WARREN CHAMPION on 01/16/18328 Metoprolol Succinate 25 Mg Tab.er.24h, 25 MG PO DAILY, (Reported) Oxycodone HCl/Acetaminophen 1 Each Tablet, 1-2 EACH PO Q4H Prescribed by: CHAKA RUTH on 02/10/17 1354 Prednisone 20 Mg Tab, 40 MG PO DAILY Prescribed by: WARREN CHAMPION on 01/16/18328 Patient Home Medication List Home Medication List Reviewed: Yes Review of Systems Review of Systems Constitutional: see HPI EENTM: no symptoms reported Respiratory: no symptoms reported Cardiovascular: no symptoms reported Gastrointestinal: no symptoms reported Genitourinary: no symptoms reported Musculoskeletal: see HPI Skin: see HPI Psychiatric/Neurological: No Symptoms Reported Endocrine: No Symptoms Reported Past Ingmajq-Mjkumm-Fqqsfv Hx Seasonal Allergies Seasonal Allergies: No Past Medical History Surgeries: Yes (L HAND, R SHOULDER) Abdominal, CABG, Orthopedic Respiratory: No Cardiac: Yes High Cholesterol, Hypertension Neurological: No Genitourinary: No Gastrointestinal: Yes Abdominal Hernia Musculoskeletal: No Arthritis Endocrine: No HEENT: No Cancer: No Psychosocial: No Integumentary: No Blood Disorders: No Family Medical History Heart Disease Physical Exam Vital Signs Vital Signs - First Documented 05/26/21 03:40 Temp 36.2 Pulse 73 Resp 17 B/P (MAP) 122/80 (94) O2 Delivery Room Air Capillary Refill : General Appearance: WD/WN, no apparent distress HEENT: PERRL/EOMI Cardiovascular: normal peripheral pulses, regular rate, rhythm Respiratory: lungs clear, normal breath sounds, no respiratory distress Gastrointestinal: non tender, soft Extremities: normal range of motion Neurologic/Psychiatric: alert, normal mood/affect, oriented x 3 Skin: other (Mild swelling left hand) Progress/Results/Core Measures Results/Orders My Orders Orders - LEXY VASQUEZ DO Diphenhydramine Tablet (Benadryl Tablet) (05/26/21 04:00) Medications Given in ED Current Medications Medications Dose Ordered Sig/Yolanda Route Start Time Stop Time Status Last Admin Dose Admin Diphenhydramine HCl 50 mg ONCE ONCE PO 05/26/21 04:00 05/26/21 03:54 DC 05/26/21 03:52 50 MG Vital Signs/I&O 05/26/21 03:40 Temp 36.2 Pulse 73 Resp 17 B/P (MAP) 122/80 (94) O2 Delivery Room Air Progress Progress Note : Progress Note Mild swelling of the left hand, no stinger present. Patient is not having anaphylactic reaction. Discussed with him supportive care and discharged home in stable condition Departure Impression Primary Impression: Sting, wasp Qualified Codes: T63.461A - Toxic effect of venom of wasps, accidental (unintentional), initial encounter Disposition: 01 HOME, SELF-CARE Condition: Stable Departure-Patient Inst. Referrals: RENETTA WHITE MD (PCP/Family) Primary Care Physician Patient Instructions: Insect Bites and Stings Add. Discharge Instructions: Topical Benadryl and hydrocortisone cream to affected area as directed on package Oral Benadryl every 8 hours as needed Tylenol ibuprofen as needed for pain All discharge instructions reviewed with patient and/or family. Voiced understanding. LEXY VASQUEZ DO May 26, 2021 03:42
[2021-05-26] MEDS ORDERED: diphenhydrAMINE 25 MG TAB (BENADRYL) PO ONE (04:00)
== END 2021-05-26 03:54 | disposition home or self-care (01) ==
LOC: EDUNIT# 03:31 → ER FS 03:34
DX: T63.461A Toxic effect of venom of wasps, accidental (unintentional), initial encounter (principal); I10 Essential (primary) hypertension; E78.00 Pure hypercholesterolemia, unspecified; Z79.82 Long term (current) use of aspirin; Z79.52 Long term (current) use of systemic steroids; Z79.899 Other long term (current) drug therapy
CPT/HCPCS: 99283

== ENCOUNTER 2022-07-23 08:37 | Emergency (ER) | payer MEDICARE ==
[~2022-07-23] VITALS: Ht 172.7 cm; Wt 85.3 kg
[2022-07-23 08:45] VITALS: BP 161/89
[2022-07-23] MEDS ORDERED: PRED10TA22 PO (09:02)
--- NOTE | 2022-07-23 09:02 | ED Upper Extremity ---
General Stated Complaint: LEFT SHOULDER PAIN Source: patient, family Exam Limitations: no limitations History of Present Illness Date Seen by Provider: Jul 23, 2022 Time Seen by Provider: 08:40 Initial Comments Patient is a 76yo male, right hand dominant, who presents to the ER with a complaint of left shoulder pain - ongoing over the last 3 days or so. He relates that he was carrying alot of wood about a week ago - but he does not believe this precipitated his symptoms. He states the pain is worse at night and seems to get better during the day. He denies numbness to the left arm but has some discomfort down the dorsal aspect/lateral shoulder, not quite to the elbow. Significant pain with active ROM. Passive is ok. No numbness to the hand or weakness. He has take some prescription opiate pain medications. History of CABG. No chest pain, SOB or nausea. Onset: other (3 days) Pain/Injury Location: left shoulder Method of Injury: unknown Modifying Factors: Improves With Immobilization; Worse With Movement Allergies and Home Medications Allergies Coded Allergies: No Known Drug Allergies (Unverified , 02/10/17) Patient Home Medication List Home Medication List Reviewed: Yes Aspirin (Aspir 81) 81 Mg Tablet.dr, 81 MG PO DAILY, (Reported) Entered as Reported by: GABY MORALES on 06/09/16 1011 Atorvastatin Calcium (Atorvastatin Calcium) 40 Mg Tablet, 40 MG PO HS, (Reported) Entered as Reported by: KIP DANIEL on 02/10/17 1109 Cefdinir (Cefdinir) 300 Mg Capsule, 300 MG PO BID Prescribed by: WARREN CHAMPION on 01/16/18 0329 Metoprolol Succinate (Metoprolol Succinate) 25 Mg Tab.er.24h, 25 MG PO DAILY, (Reported) Entered as Reported by: KIP DANIEL on 06/19/16 1207 Oxycodone HCl/Acetaminophen (Percocet 7.5-325 mg Tablet) 1 Each Tablet, 1-2 EACH PO Q4H Prescribed by: CHAKA RUTH on 02/10/17 1354 Prednisone (Prednisone) 20 Mg Tab, 40 MG PO DAILY Prescribed by: WARREN CHAMPION on 01/16/18 0329 Prednisone (Prednisone) 10 Mg Tab.ds.pk, 10 MG PO DAILY Prescribed by: ANGELA ANDERSON on 10/6/22 0902 Review of Systems Constitutional: see HPI EENTM: no symptoms reported Respiratory: no symptoms reported Cardiovascular: no symptoms reported Gastrointestinal: no symptoms reported Genitourinary: no symptoms reported Musculoskeletal: joint pain (left shoulder pain) Skin: no symptoms reported Psychiatric/Neurological: No Symptoms Reported All Other Systems Reviewed Negative Unless Noted: Yes Past Cbnmaox-Aotjea-Twwrgb Hx Seasonal Allergies Seasonal Allergies: No Past Medical History Surgeries: Yes (L HAND, R SHOULDER) Abdominal, CABG, Orthopedic Respiratory: No Cardiac: Yes High Cholesterol, Hypertension Neurological: No Genitourinary: No Gastrointestinal: Yes Abdominal Hernia Musculoskeletal: No Arthritis Endocrine: No HEENT: No Cancer: No Psychosocial: No Integumentary: No Blood Disorders: No Family Medical History Heart Disease Physical Exam Vital Signs Capillary Refill : Height, Weight, BMI Height: 5'7.00" Weight: 181lbs. 0.0oz. 82.328794yp; 29.00 BMI Method:Stated General Appearance: WD/WN, no apparent distress HEENT: PERRL/EOMI Cardiovascular: regular rate, rhythm Respiratory: lungs clear, normal breath sounds, no respiratory distress, no accessory muscle use Shoulder: normal inspection, limited ROM, soft tissue tenderness (tender over the long head of the bicep and the deltois muscle; no AC joint tenderness; no scpular tenderness; no anterior shoulder joint tenderness) Elbow/Forearm: normal inspection, non-tender, no evidence of injury, normal ROM Wrist: Yes normal inspection, Yes non-tender, Yes no evidence of injury, Yes normal ROM Hand: normal inspection, non-tender, no evidence of injury, normal ROM Neurologic/Tendon: normal sensation Neurologic/Psychiatric: alert, normal mood/affect, oriented x 3 Skin: normal color, warm/dry Departure Impression Primary Impression: Tendonitis of shoulder, left Disposition: 01 HOME, SELF-CARE Condition: Stable Departure-Patient Inst. Decision time for Depature: 08:59 Referrals: RENETTA WHITE MD (PCP/Family) Primary Care Physician Patient Instructions: Shoulder Tendinopathy (DC) Add. Discharge Instructions: Rest the sore area and apply ice packs for discomfort. We have started you on a tapering dose of steroids to help with the pain and inflammation. Steroids can increase your appetite, disrupt your sleep, make you feel a little sweaty and cause some irritabilty. Take steroids with food. It is a good idea to take an acid blasting coal miner sudh as pepcid or prilosec while on steroids. Please call and follow up with your primary care doctor to ensure you are impr oving. If symptoms are not getting better 48 hours after starting the steroids, follow up with your Orthopedic physician. Scripts Prednisone (Prednisone) 10 Mg Tab.ds.pk 10 MG PO DAILY, #42 EA Take 6 tabs(60mg)daily,decrease by 1 tab(10mg)every other day. Prov: ANGELA ANDERSON MD 07/23/22 ANGELA ANDERSON MD Jul 23, 2022 09:02
== END 2022-07-23 09:12 | disposition home or self-care (01) ==
LOC: EDUNIT# 08:37 → ER 08:38
DX: M77.8 Other enthesopathies, not elsewhere classified (principal)
CPT/HCPCS: 99281